=== PATIENT | male | born 1950 | race Caucasian/White ===

== ENCOUNTER → 2023-06-05 11:03 | Outpatient (REF) | payer MEDICARE, OTHER, SELFPAY ==
[2023-06-05 11:58] LABS: Hematocrit 46.3 % (39.0-52.0); Hemoglobin 15.6 g/dL (13.0-18.0); Mean Corp Hgb Conc. 33.7 g/dL (33.0-37.0); Mean Corpuscular Hgb 27.7 pg (27.0-31.0); Mean Corpuscular Volume 82.2 fL (80.0-94.0); Mean Platelet Volume 10.1 fL (7.4-10.4); Platelet Count 183 10^3/uL (130-400); Red Blood Cell Count 5.63 10^6/uL (4.70-6.10); Red Cell Dist. Width 16.3 % (11.5-14.5); White Blood Cell Count 7.7 10^3/uL (4.8-10.8)
[2023-06-05 12:51] LABS: Free T4 1.56 ng/dl (0.78-2.19)
[2023-06-05 13:00] LABS: ALT (SGPT) 19 U/L (0-50); AST (SGOT) 25 U/L (17-59); Albumin 3.9 g/dl (3.5-5.0); Alkaline Phosphatase 59 U/L (38-126); Blood Urea Nitrogen 26 mg/dl (9-20); Calcium 10.5 mg/dl (8.4-10.2); Carbon Dioxide 30 mmol/L (22-30); Chloride 104 mmol/L (98-107); Glucose 106 mg/dl (70-99); HDL Cholesterol 47 mg/dl; LDL Cholesterol, Calculated 43 mg/dl; Potassium 4.6 mmol/L (3.5-5.1); Sodium 143 mmol/L (135-145); Total Bilirubin 0.8 mg/dl (0.2-1.3); Total Cholesterol 113 mg/dl (50-199); Triglyceride 119 mg/dl (10-149); Very Low Density Lipoprotein 23 mg/dl (0-30); eGFR 48.85
[2023-06-05 13:05] LABS: TSH 1.11 uIU/ml (0.47-4.68)
[2023-06-06 11:09] LABS: Intact PTH 43.2 pg/ml (13.6-85.8)
[2023-06-07 11:21] LABS: PSA Total 6.9 ng/mL (0.0-4.0)
== END ==
LOC: REG 11:03
PROVIDERS: ATTENDING PHYSICIAN Nurse Practitioner Family; FAMILY PHYSICIAN Family Medicine; REFERRING PHYSICIAN Surgery
DX: E11.9 Type 2 diabetes mellitus without complications (principal); E03.9 Hypothyroidism, unspecified; Z87.442 Personal history of urinary calculi; R97.20 Elevated prostate specific antigen [PSA]
CPT/HCPCS: 36415; 80053; 80061; 82330; 83036; 83970; 84153; 84154; 84439; 84443; 85027

== ENCOUNTER → 2023-06-18 12:14 | Outpatient (REF) | payer MEDICARE, OTHER, SELFPAY | LOC: HWRAD 12:14 | PROVIDERS: ATTENDING PHYSICIAN Physician Assistant; FAMILY PHYSICIAN Family Medicine | DX: R91.8 Other nonspecific abnormal finding of lung field (principal) | CPT/HCPCS: 71250 ==

== ENCOUNTER → 2023-09-18 12:42 | Outpatient (REF) | payer MEDICARE, OTHER, SELFPAY | LOC: RAD 12:42 | PROVIDERS: ATTENDING PHYSICIAN Internal Medicine; FAMILY PHYSICIAN Family Medicine; REFERRING PHYSICIAN Internal Medicine Cardiovascular Disease | DX: R91.8 Other nonspecific abnormal finding of lung field (principal) | CPT/HCPCS: 71250 ==

== ENCOUNTER 2023-10-06 16:20 | Emergency (ER) | payer MEDICARE, OTHER, SELFPAY ==
[2023-10-06] VITALS (11 sets, daily range): BP systolic 113–138; BP diastolic 61–78; BMI 23.0
[2023-10-06 16:36] LABS: % Basophils 0.3 % (0-2); % Eosinophils 0.6 % (0-6); % Immature Granulocytes 0.7 % (0-0.5); % Lymphocytes 8.4 % (20.5-51.1); % Monocytes 3.6 % (1.7-9.3); % Neutrophils 86.4 % (42.2-75.2); Absolute Eosinophils 0.1 10^3/uL (0-0.7); Absolute Immature Granulocytes 0.1 10^3/uL (0-0.05); Absolute Lymphocytes 1.1 10^3/uL (1.2-3.4); Absolute Monocytes 0.5 10^3/uL (0.1-0.6); Absolute Neutrophils 11.1 10^3/uL (1.4-6.5); Hematocrit 34.9 % (39.0-52.0); Hemoglobin 11.8 g/dL (13.0-18.0); Mean Corp Hgb Conc. 33.8 g/dL (33.0-37.0); Mean Corpuscular Hgb 27.3 pg (27.0-31.0); Mean Corpuscular Volume 80.8 fL (80.0-94.0); Mean Platelet Volume 10.3 fL (7.4-10.4); Nucleated Red Blood Cells % 0 % (-); Platelet Count 101 10^3/uL (130-400); Red Blood Cell Count 4.32 10^6/uL (4.70-6.10); Red Cell Dist. Width 14.6 % (11.5-14.5); White Blood Cell Count 12.8 10^3/uL (4.8-10.8)
--- NOTE | 2023-10-06 16:42 | ED.GENMED ---
History of Present Illness
General
Chief Complaint: Breathing Problem
Exam Limitations: none
Time Seen by Provider: 10/06/23 16:33
Nursing documentation reviewed up to this point in time: agreed with
History of Present Illness
History of Present Illness:
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
[employer] parking lot and called BCT. He denies headache, CP, SOB, Abd pain, n/v/d/c. States he has difficulty urinating at times but this is not new.
EMS reported the van was very hot inside with no air conditioning.
Past History
Past History
ED Past Medical History: CAD, CHF, COPD, GERD, HTN, Hypercholesterolemia and Other ( Heart class III CHF,)
ED Past Surgical History: Cardiac (Coronary stents, AICD), Urological (Kidney stone removal) and Other (Hernia repair)
Social History
Tobacco: Former smoker
Alcohol: None
Drug: None
Personal:
Living: with family
Employment: Retired
Family History
Family History: Other (Noncontributory)
Review of Systems
Review of Systems
Allergies reviewed?: Yes
All Other Systems: ROS reviewed and negative except as documented in HPI and ROS
Constitutional: Reports fever, fatigue and chills
EENT: Denies sore throat
Respiratory: Denies cough or trouble breathing
Cardiac: Denies chest pain, diaphoresis, palpitations or syncope
ABD/GI: Denies abdominal pain, nausea, vomiting, diarrhea, bloody stools or black stools
: Denies dysuria
Musculoskeletal: Reports no symptoms
Skin: Reports no symptoms
Neurological: Reports weakness (generalized); Denies dizzy, headache or numbness
Phy Exam
Physical Exam
Physical Exam:
GENERAL: No acute distress. Lethargic, Ox3.
CONSTITUTIONAL: 101.0 po
EYES: PERRL, conjunctivae normal
Neck: Supple
ENMT: moist mucus membranes, Pharynx nl
RESPIRATORY: Regular respirations, nonlabored, lungs clear.
CARDIOVASCULAR: Regular rate and rhythm, no murmurs, no rubs.
GI: Soft, nontender, normal BS
MUSCULOSKELETAL: Moves with ease. Well perfused. No edema
SKIN: Warm, dry, pink
PSYCH: Depressed, lethargic mood and affect. Well kept, interactive and appropriate
NEUROLOGIC: Awake and oriented. Slow to respond, speech clear, CN 2-12 intact, genally weak, strength equal throughout, No focal neurological deficits.
Scores
Heart Failure Risk
Heart Failure Risk Score: Not Applicable
Course
Orders/Labs/Results
Orders:
Orders
10/06/23 16:27
Electrocardiogram (*1) Urgent
Reason for Study: Shortness of Breath
EKG- Treatment ONCE
10/06/23 16:31
Complete Blood Count/With Diff Urgent
Comprehensive Metabolic Panel Urgent
Pro-BNP [NT-proBNP] Urgent
Troponin I Urgent
10/06/23 16:43
Urinalysis Reflex To Culture Urgent
Date Specimen was Collected: 10/06/23
Time Specimen was Collected: 16:40
Urine Microscopic Reflex Cult Urgent
10/06/23 16:51
Acetaminophen [Tylenol] 1,000 mg PO NOW STA
10/06/23 16:52
0.9% Sodium Chloride 500 ml [Nss] 500 ml IV BOLUS
Abnormal Lab Results
10/06/23 10/06/23
16:31 16:43
WBC 12.8 H 10^3/uL
(4.8-10.8)
RBC 4.32 L 10^6/uL
(4.70-6.10)
Hgb 11.8 L g/dL
(13.0-18.0)
Hct 34.9 L %
(39.0-52.0)
RDW 14.6 H %
(11.5-14.5)
Plt Count 101 L 10^3/uL
(130-400)
Abs Immat Gran (auto) 0.1 H 10^3/uL
(0-0.05)
Absolute Neuts (auto) 11.1 H 10^3/uL
(1.4-6.5)
Absolute Lymphs (auto) 1.1 L 10^3/uL
(1.2-3.4)
Immature Gran % 0.7 H %
(0-0.5)
Neutrophils % 86.4 H %
(42.2-75.2)
Lymphocytes % 8.4 L %
(20.5-51.1)
Potassium 3.3 L mmol/L
(3.5-5.1)
BUN 25 H mg/dl
(9-20)
Creatinine 1.4 H mg/dL
(0.7-1.3)
Glucose 103 H mg/dl
(70-99)
Total Protein 6.0 L g/dl
(6.3-8.2)
Ur Occult Blood Reflex 3+ A
(Negative)
Urine Albumin (Reflex) 2+ A
(Neg - Trace)
10/06/23 16:31
10/06/23 16:31
Vital Signs
Initial and Last Documented VS:
Initial Vital Signs
Temp Pulse Resp BP Pulse Ox
101.1 F H 98 19 137/78 97
10/06/23 16:25 10/06/23 16:25 10/06/23 16:25 10/06/23 16:25 10/06/23 16:25
Last Documented Vital Signs
Temp Pulse Resp BP Pulse Ox
99.1 F 80 20 126/61 96
10/06/23 17:21 10/06/23 19:00 10/06/23 19:00 10/06/23 18:34 10/06/23 19:00
MDM/Problems Addressed
Differential Diagnosis Includes:
Heat exhaustion, dehydration, hypoglycemia
MDM/Problems Addressed:
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
[employer] parking lot and called BCT. He denies headache, CP, SOB, Abd pain, n/v/d/c. States he has difficulty urinating at times but this is not new.
EMS reported the van was very hot inside with no air conditioning.
EKG: Atrial sensed ventricular paced rhythm. Rate 98
CBC: No clinically significant abnormality
CMP: Consistent with his baseline CKD
Troponin WNL
BNP 1810 mildly elevated
U/A neg
5:30 PM
Patient now more alert, drinking, still feels very fatigued
6:45 PM
Patient eating and drinking, feels much better, sitting on edge of bed bright and alert, oriented
at bedside states he looks 'good.'
Patient out of bed and ambulating well
Temperature back to normal '
Most likely mild heat exhaustion
*EKG
EKG Intrepretation Date: 10/06/23
Interpretation: abnormal
Rate: normal
Rhythm: ventricular paced
QRS Pattern: normal QRS
Ischemia: no ischemia
*Critical Care Note
Total Time (30-74mins, 75-104mins- exclusive of procedures): Not Applicable
ED Attending Note
-
Portions of this chart may have been created with voice recognition software.� Occasional wrong word or��sound alike� substitutions may have occurred due to the inherent limitations of voice recognition software.
Discharge Plan
Departure
Patient Disposition: Home (Routine Discharge)
Date of Disposition: 10/06/23
Time of Disposition: 18:50
Patient with high blood pressure during this ER visit?: No
Condition: Good
Discharge Problem:
Heat exhaustion, Mild dehydration
Instructions: Heat Exhaustion and Heat Stroke (DC), Dehydration, Adult ED
Prescriptions:
No Action
aspirin 81 MG tablet,delayed release (DR/EC)
81 mg PO QPM
levothyroxine [Levoxyl] 50 MCG tablet
50 mcg PO DAILY
albuterol sulfate [Proventil HFA] 90 MCG/PUFF HFA aerosol inhaler
2 puff inhalation R Q4 PRN (Reason: SOB)
Patient Comments:
pantoprazole 40 MG tablet,delayed release (DR/EC)
40 mg PO DAILY
rosuvastatin [Crestor] 40 MG tablet
40 mg PO DAILY
famotidine [Pepcid] 20 mg Tablet
20 mg PO HS
tamsulosin 0.4 mg Capsule
0.4 mg PO HS
escitalopram oxalate [Lexapro] 10 mg Tablet
10 mg PO DAILY
Trelegy Ellipta 200-62.5-25 mcg Blister With Device
1 inh INHALATION R DAILY
multivitamin Tablet
1 tab PO DAILY
Cbd 1 GUMMY
1 gummy PO DAILY
Focus 1 TAB tablet
1 tab PO DAILY
Oxy-Boost 1 CAPSULE capsule
1 cap PO DAILY
metformin 500 mg Tablet
500 mg PO BID@0800,1700 Qty: 60 0RF
Januvia 100 mg Tablet
100 mg PO DAILY Qty: 30 0RF
glipizide 5 mg tablet
2.5 mg PO DAILY
levofloxacin 750 mg tablet
750 mg PO DAILY 5 Days Qty: 5 0RF
carvedilol [Coreg] 12.5 mg Tablet
12.5 mg PO BID
Referrals:
Sam Rowe MD [Family Provider] - Follow up in 2-3 days
NONE,* [Active] -
Stand Alone Forms: Return to Work
Activity Restrictions/Additional Instructions:
As we discussed, rest over the next 2 days, drink plenty of fluids, stay hydrated. Stay in a cool atmosphere
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
You should have your kidney functions rechecked by blood work sometime within the next month. Please discuss with your doctor
Interventions
Interventions:
*Risk Screen - Suicide Last Done: 10/06/23 16:29
*General Assessment Last Done: 10/06/23 16:28
*Neglect/Abuse Screening Last Done: 10/06/23 16:29
ED- Fall Risk Assessment Last Done: 10/06/23 16:44
*ED COVID-19 Vaccine History Last Done: 10/06/23 16:29
*Nursing Disposition Last Done: 10/06/23 19:15
ED- Cardiac Assessment Last Done: 10/06/23 16:33
ED- Pulmonary Assessment Last Done: 10/06/23 16:44
Discharge Date and Time
Discharge Date/Time: 10/06/23 19:15
Print Language: MOHAWK
[2023-10-06 16:53] LABS: ALT (SGPT) 24 U/L (0-50); AST (SGOT) 28 U/L (17-59); Albumin 3.6 g/dl (3.5-5.0); Alkaline Phosphatase 59 U/L (38-126); Blood Urea Nitrogen 25 mg/dl (9-20); Calcium 9.6 mg/dl (8.4-10.2); Carbon Dioxide 24 mmol/L (22-30); Chloride 107 mmol/L (98-107); Estimated Creatinine Clearance 44 ml/min; Glucose 103 mg/dl (70-99); Potassium 3.3 mmol/L (3.5-5.1); Sodium 140 mmol/L (135-145); Total Bilirubin 0.5 mg/dl (0.2-1.3); eGFR 53.07
[2023-10-06] MEDS: TYLENOL 1000 MG PO (16:55)
[2023-10-06] MEDS: NSS 500 IV (16:57)
[2023-10-06 16:59] LABS: Urine Albumin 2+ (Neg - Trace); Urine Bilirubin Negative (Negative); Urine Character Clear (Clear); Urine Color Yellow; Urine Glucose Negative (Negative); Urine Ketone Negative (Negative); Urine Leukocyte Negative (Negative); Urine Nitrite Negative (Negative); Urine Occult Blood 3+ (Negative); Urine Urobilinogen Negative (Neg - 1+)
[2023-10-06 17:04] LABS: NT-proBNP 1810 pg/ml; Troponin I < 0.012 ng/ml
[2023-10-06 17:14] LABS: Urine White Cell 0-2 /HPF (0-5)
[2023-10-06 17:15] LABS: Urine Red Blood Cell 0-2 /HPF (0-2)
== END 2023-10-06 19:15 | disposition home or self-care (01) ==
LOC: EMR 16:20
PROVIDERS: Emergency Medicine; EMERGENCY PHYSICIAN Emergency Medicine; FAMILY PHYSICIAN Family Medicine
DX: E86.0 Dehydration (principal); T67.5XXA Heat exhaustion, unspecified, initial encounter; R50.9 Fever, unspecified; X30.XXXA Exposure to excessive natural heat, initial encounter; Y93.89 Activity, other specified; Y92.89 Other specified places as the place of occurrence of the external cause; Y99.0 Civilian activity done for income or pay; I13.0 Hypertensive heart and chronic kidney disease with heart failure and stage 1 through stage 4 chronic kidney disease, or unspecified chronic kidney disease; I50.9 Heart failure, unspecified; N18.9 Chronic kidney disease, unspecified; I25.10 Atherosclerotic heart disease of native coronary artery without angina pectoris; J44.9 Chronic obstructive pulmonary disease, unspecified; E78.00 Pure hypercholesterolemia, unspecified; E03.9 Hypothyroidism, unspecified; K21.9 Gastro-esophageal reflux disease without esophagitis; I25.2 Old myocardial infarction; Z87.442 Personal history of urinary calculi; Z95.5 Presence of coronary angioplasty implant and graft; Z95.810 Presence of automatic (implantable) cardiac defibrillator; Z87.891 Personal history of nicotine dependence
CPT/HCPCS: 99284; 96360; 80053; 81003; 81015; 83880; 84484; 85025; 93005

== ENCOUNTER 2023-11-04 11:49 | Emergency (ER) | payer MEDICARE, OTHER, SELFPAY ==
[2023-11-04 11:57] VITALS: BP 140/77
[2023-11-04 12:22] VITALS: BMI 23.0
[2023-11-04 12:23] VITALS: BP 153/95
[2023-11-04 12:24] VITALS: BP 153/95
[2023-11-04 13:00] VITALS: BP 141/79
[2023-11-04 13:00] LABS: ALT (SGPT) 20 U/L (0-50); AST (SGOT) 34 U/L (17-59); Albumin 3.6 g/dl (3.5-5.0); Alkaline Phosphatase 56 U/L (38-126); Blood Urea Nitrogen 16 mg/dl (9-20); Calcium 9.9 mg/dl (8.4-10.2); Carbon Dioxide 29 mmol/L (22-30); Chloride 103 mmol/L (98-107); Estimated Creatinine Clearance 58 ml/min; Glucose 129 mg/dl (70-99); Sodium 139 mmol/L (135-145); Total Bilirubin 0.8 mg/dl (0.2-1.3); Total Protein 6.6 g/dl (6.3-8.2); eGFR > 60.00
--- NOTE | 2023-11-04 13:17 | ED.GENMED ---
History of Present Illness
General
Chief Complaint: Fever
Time Seen by Provider: 11/04/23 12:13
History of Present Illness
History of Present Illness:
73-year-old male presents to the emergency department for evaluation of lethargy, weakness, and confusion. Tested positive for COVID-19 approximately 10 days ago and has had persistent fever since that time. Patient denies any headaches or vision
changes. He is somewhat slow to respond on initial evaluation. He has not received any antipyretics today
Past History
Past History
ED Past Medical History: CAD, CHF, COPD, GERD, HTN, Hypercholesterolemia and Other ( Heart class III CHF,)
ED Past Surgical History: Cardiac (Coronary stents, AICD), Urological (Kidney stone removal) and Other (Hernia repair)
Social History
Tobacco: Former smoker
Alcohol: None
Drug: None
Personal:
Living: with family
Employment: Retired
Family History
Family History: Other (Noncontributory)
Review of Systems
Review of Systems
Allergies reviewed?: Yes
All Other Systems: ROS reviewed and negative except as documented in HPI and ROS
Phy Exam
Physical Exam
Physical Exam:
GEN: Well appearing, NAD, WDWN
HEENT: Oral mucosa moist, no scleral icterus, no nasal congestion
Cardiac: Regular rate and rhythm
Lung: No respiratory distress, no tachypnea, lungs clear to auscultation
MSK: No gross deformity or injuries
Skin: Good color, no pallor or jaundice, no rashes
Neuro: AO x3, slow to questions; CN II-XII grossly intact. BUE strength 5/5 in all chen, sensation intact and symmetric. BLE strength 5/5 in all chen, sensation intact and symmetric
Psych: Calm, cooperative
Course
Orders/Labs/Results
Orders:
Orders
11/04/23 12:26
Complete Blood Count/With Diff Urgent
Comprehensive Metabolic Panel Urgent
11/04/23 12:48
CT Head W/o Iv Contrast Urgent
Comment:
Reason For Exam: altered
0.9% Sodium Chloride 1000 ml [Nss] 1,000 ml IV BOLUS
Acetaminophen [Tylenol] 650 mg PO NOW STA
CR Chest - 2 Views Urgent
Comment:
Reason For Exam: COVID/fever
11/04/23 15:54
Urinalysis Reflex To Culture Urgent
Date Specimen was Collected: 11/04/23
Time Specimen was Collected: 15:52
Urine Microscopic Reflex Cult Urgent
Abnormal Lab Results
11/04/23 11/04/23
12:26 15:54
WBC 12.9 H 10^3/uL
(4.8-10.8)
RBC 4.53 L 10^6/uL
(4.70-6.10)
Hgb 12.0 L g/dL
(13.0-18.0)
Hct 35.7 L %
(39.0-52.0)
MCV 78.8 L fL
(80.0-94.0)
MCH 26.5 L pg
(27.0-31.0)
Abs Immat Gran (auto) 0.1 H 10^3/uL
(0-0.05)
Absolute Neuts (auto) 10.7 H 10^3/uL
(1.4-6.5)
Absolute Lymphs (auto) 1.0 L 10^3/uL
(1.2-3.4)
Absolute Monos (auto) 1.0 H 10^3/uL
(0.1-0.6)
Immature Gran % 0.6 H %
(0-0.5)
Neutrophils % 82.9 H %
(42.2-75.2)
Lymphocytes % 7.9 L %
(20.5-51.1)
Glucose 129 H mg/dl
(70-99)
Urine Ketones Trace A
(Negative)
Ur Occult Blood Reflex 1+ A
(Negative)
Urine Bacteria (Reflex) Few A
(Negative)
Urine Albumin (Reflex) 1+ A
(Neg - Trace)
11/04/23 12:26
11/04/23 12:26
Vital Signs
Initial and Last Documented VS:
Initial Vital Signs
Temp Pulse Resp BP Pulse Ox
101.8 F H 84 20 140/77 96
11/04/23 11:57 11/04/23 11:57 11/04/23 11:57 11/04/23 11:57 11/04/23 11:57
Last Documented Vital Signs
Temp Pulse Resp BP Pulse Ox
100.1 F 76 16 153/95 95
11/04/23 12:23 11/04/23 12:23 11/04/23 12:23 11/04/23 12:23 11/04/23 12:23
MDM/Problems Addressed
MDM/Problems Addressed:
Patient's neurologic function improved dramatically with antipyretics and IV fluids. He was able to ambulate under his own power without difficulty in the emergency department. No evidence for secondary infection as chest x-ray shows no pneumonia
cyst is bland. Encouraged use of continued antipyretics, this is likely a prolonged course of COVID-19. CT of the head is unremarkable. He has no neck stiffness or meningeal signs concerning for meningitis/encephalitis, regardless this would be
viral and I feel the risk of lumbar puncture at this time with far outweigh the potential benefits
*Critical Care Note
Total Time (30-74mins, 75-104mins- exclusive of procedures): Not Applicable
ED Attending Note
-
Portions of this chart may have been created with voice recognition software.� Occasional wrong word or��sound alike� substitutions may have occurred due to the inherent limitations of voice recognition software.
Discharge Plan
Departure
Patient Disposition: Home (Routine Discharge)
Date of Disposition: 11/04/23
Time of Disposition: 16:26
Patient with high blood pressure during this ER visit?: No
Discharge Problem:
COVID-19
Instructions: Fever, Adult (DC)
Prescriptions:
No Action
aspirin 81 MG tablet,delayed release (DR/EC)
81 mg PO QPM
levothyroxine [Levoxyl] 50 MCG tablet
50 mcg PO DAILY
albuterol sulfate [Proventil HFA] 90 MCG/PUFF HFA aerosol inhaler
2 puff inhalation R Q4 PRN (Reason: SOB)
Patient Comments:
pantoprazole 40 MG tablet,delayed release (DR/EC)
40 mg PO DAILY
rosuvastatin [Crestor] 40 MG tablet
40 mg PO DAILY
famotidine [Pepcid] 20 mg Tablet
20 mg PO HS
tamsulosin 0.4 mg Capsule
0.4 mg PO HS
escitalopram oxalate [Lexapro] 10 mg Tablet
10 mg PO DAILY
Trelegy Ellipta 200-62.5-25 mcg Blister With Device
1 inh INHALATION R DAILY
multivitamin Tablet
1 tab PO DAILY
Cbd 1 GUMMY
1 gummy PO DAILY
Focus 1 TAB tablet
1 tab PO DAILY
Oxy-Boost 1 CAPSULE capsule
1 cap PO DAILY
metformin 500 mg Tablet
500 mg PO BID@0800,1700 Qty: 60 0RF
Januvia 100 mg Tablet
100 mg PO DAILY Qty: 30 0RF
glipizide 5 mg tablet
2.5 mg PO DAILY
levofloxacin 750 mg tablet
750 mg PO DAILY 5 Days Qty: 5 0RF
carvedilol [Coreg] 12.5 mg Tablet
12.5 mg PO BID
Referrals:
Sam Rowe MD [Family Provider] -
Activity Restrictions/Additional Instructions:
Take 650 mg of Tylenol every 6-8 hours for fever control. Increase fluid intake. Follow-up in the emergency department if symptoms worsen
Interventions
Interventions:
*Risk Screen - Suicide Last Done: 11/04/23 12:23
*General Assessment Last Done: 11/04/23 12:23
*Neglect/Abuse Screening Last Done: 11/04/23 12:23
ED- Fall Risk Assessment Last Done: 11/04/23 12:23
*ED COVID-19 Vaccine History Last Done: 11/04/23 12:23
ED- Neurological Assessment Last Done: 11/04/23 12:23
ED-Skin Assessment Last Done: 11/04/23 12:23
Discharge Date and Time
Print Language: MICRONESIAN
[2023-11-04] MEDS: TYLENOL 650 MG PO (13:21)
[2023-11-04] MEDS: NSS 1000 IV (13:24)
[2023-11-04 14:00] VITALS: BP 139/76
[2023-11-04 15:03] LABS: % Basophils 0.2 % (0-2); % Eosinophils 0.7 % (0-6); % Immature Granulocytes 0.6 % (0-0.5); % Lymphocytes 7.9 % (20.5-51.1); % Monocytes 7.7 % (1.7-9.3); % Neutrophils 82.9 % (42.2-75.2); Absolute Eosinophils 0.1 10^3/uL (0-0.7); Absolute Immature Granulocytes 0.1 10^3/uL (0-0.05); Absolute Neutrophils 10.7 10^3/uL (1.4-6.5); Hematocrit 35.7 % (39.0-52.0); Mean Corp Hgb Conc. 33.6 g/dL (33.0-37.0); Mean Corpuscular Hgb 26.5 pg (27.0-31.0); Mean Corpuscular Volume 78.8 fL (80.0-94.0); Mean Platelet Volume 9.9 fL (7.4-10.4); Nucleated Red Blood Cells % 0 % (-); Platelet Count 227 10^3/uL (130-400); Red Blood Cell Count 4.53 10^6/uL (4.70-6.10); Red Cell Dist. Width 14.5 % (11.5-14.5); White Blood Cell Count 12.9 10^3/uL (4.8-10.8)
[2023-11-04 16:00] VITALS: BP 138/85
[2023-11-04 16:07] LABS: Urine Albumin 1+ (Neg - Trace); Urine Bilirubin Negative (Negative); Urine Character Clear (Clear); Urine Color Yellow; Urine Glucose Negative (Negative); Urine Ketone Trace (Negative); Urine Leukocyte Negative (Negative); Urine Nitrite Negative (Negative); Urine Occult Blood 1+ (Negative); Urine Specific Gravity 1.015 (<1.030); Urine Urobilinogen Negative (Neg - 1+)
[2023-11-04 16:23] LABS: Urine Hyaline Cast 0-2 /LPF (0-2); Urine Mucus Few
[2023-11-04 16:24] LABS: Urine Bacteria Few (Negative); Urine Granular Cast 0-2 /LPF (0); Urine Red Blood Cell 0-2 /HPF (0-2)
== END 2023-11-04 16:43 | disposition home or self-care (01) ==
LOC: EMR 11:49
PROVIDERS: Emergency Medicine; Physician Assistant; EMERGENCY PHYSICIAN Emergency Medicine; FAMILY PHYSICIAN Family Medicine
DX: U07.1 COVID-19 (principal); Z87.891 Personal history of nicotine dependence
CPT/HCPCS: 99284; 96360; 70450; 71046; 80053; 81003; 81015; 85025

== ENCOUNTER 2023-11-04 23:23 | Inpatient (IN) | payer MEDICARE, OTHER, SELFPAY ==
[2023-11-04 21:41] VITALS: BP 138/68; BMI 21.8
[2023-11-04 22:00] VITALS: BP 130/65
--- NOTE | 2023-11-04 22:25 | ED.GENMED ---
History of Present Illness
General
Chief Complaint: Weakness
Source: patient and family
Exam Limitations: none
Time Seen by Provider: 11/04/23 21:47
History of Present Illness
History of Present Illness:
This is a 73 year old male that is brought in by family with c/o confusion. Patient was just seen in the emergency room today and discharge home around 5pm. Son states that tonight they found him kneeling on the floor with a big yellow puddle.
states that he had COVID 13 days ago and when he has a fever he gets confused. States that he has had fever with chills, diarrhea, headache, dizziness. Denies any chest pain, SOB, abd pain, vomiting, urinary burning.
Past History
Past History
ED Past Medical History: Asthma, CAD, CHF, COPD, GERD, HTN, Hypercholesterolemia, NIDDM, [place], Hypothyroidism, Psychiatric (Anxiety), Other (Peraza's Esophagus, Renal calculus, ) and Other ( Heart class III CHF, Back pain, Migraines, PNA, )
ED Past Surgical History: Cardiac (Coronary stents, AICD), Orthopedic (Right and left rotator cuff surgery), Urological (Kidney stone removal) and Other (Hernia repair, AAA with repair, Cataracts, )
Social History
Tobacco: Former smoker
Alcohol: None
Drug: None
Personal:
Living: with family
Employment: Retired
Family History
Family History: Other (Noncontributory)
Review of Systems
Review of Systems
Other source history: family (and patient)
All Other Systems: ROS reviewed and negative except as documented in HPI and ROS
Constitutional: Reports fever and chills
EENT: Reports no symptoms
Respiratory: Reports no symptoms; Denies cough or trouble breathing
Cardiac: Reports no symptoms; Denies chest pain
ABD/GI: Reports diarrhea; Denies abdominal pain, nausea or vomiting
: Reports no symptoms; Denies dysuria, frequency or urgency
Musculoskeletal: Reports no symptoms
Skin: Reports no symptoms
Neurological: Reports dizzy and headache
Psychiatric: Reports no symptoms
Phy Exam
General Physical Exam
General Presentation: no apparent distress
General age: appears stated age
General Skin: warm and dry
General Habitus: elderly
General Mental: alert (able to answer questions but slow to answer, Unsure about events)
General Hydration: appears well hydrated
ENT Exam
ENT Exam: TM's normal, pharynx normal and neck supple
Eye Exam
Eye Exam: EOMI
Cardiovascular Exam
Cardiovascular Exam: no edema, normal peripheral pulses and pacemaker
Pulmonary Exam
Pulmonary Exam: lungs clear, no respiratory distress, no rales, chest non tender, no crackles, no rhonchi, no wheezing and no cough
Gastrointestinal Exam
Gastrointestinal Exam: normal bowel sounds, non tender, soft, no organomegaly, no pulsatile mass and non distended
Musculoskeletal Exam
Musculoskeletal Exam: full ROM and no edema
Skin Exam
Skin Exam: normal color, warm/dry, no rash and no petechia
Psychiatric Exam
Psychiatric Exam: normal mood/affect
Course
Orders/Labs/Results
Orders:
Orders
11/04/23 22:39
COVID-19 Antigen Urgent
Source: Nasal Swab
11/04/23 23:04
Acetaminophen [Tylenol] 1,000 mg PO NOW STA
11/04/23 23:23
Admit/Transfer Patient As Directed
Co-Sign Provider:
Level of Care: Inpatient admission
Assign to:: Medical/Surgical
Physician / Group: can
Diagnosis: metabolic encephelopathy
Reason for Hospitalization: metabolic encephalopathy
Expected length of stay greater than two midnights?: Yes
ELOS- Estimated Length of Stay in days: 2
I certify the patient meets the requirements for IP care: Yes
11/04/23 23:24
Code Status As Directed
Resuscitation Status: Full Code
11/04/23 23:27
Blood Culture Urgent
ALONSO Source: Blood/Venous
Specimen Description:
11/04/23 23:57
Blood Culture Routine
ALONSO Source: Blood/Venous
Specimen Description:
COVID negative
Vital Signs
Initial and Last Documented VS:
Initial Vital Signs
Temp Pulse Resp BP Pulse Ox
99.6 F 77 14 138/68 94
11/04/23 21:41 11/04/23 21:41 11/04/23 21:41 11/04/23 21:41 11/04/23 21:41
Last Documented Vital Signs
Temp Pulse Resp BP Pulse Ox
99.6 F 69 13 127/74 98
11/04/23 21:41 11/04/23 23:00 11/04/23 23:00 11/04/23 23:00 11/04/23 23:00
MDM/Problems Addressed
Differential Diagnosis Includes:
COVID Encephalopathy, Dementia
MDM/Problems Addressed:
This is a 73 year old male that was here today with c/o weakness and confusion. Patient had a CT of the head, labs, chest x-ray and urine and patient was discharged home. Patient was found at home kneeling on the floor with a big yellow puddle.
Family states that he doesn't remember this.
Will Admit patient at this time for confusion and further evaluation.
Back into see patient and family. Explained that his Blood work from earlier was normal along with his chest X-ray and CT of the head. Will admit patient due to the confusion. Explained that this could all be related to COVID or this could be
dementia starting. Patient can be further evaluated in the hospital.
Chronic conditions affecting care: DM, CAD, COPD and Asthma
Acute Exacerbation and/or Progression of Chronic Illness:
NA
*Pulse Oximetry
Patient hypoxic: no
*EKG
Interpreted by ED Provider?: NA
Rate: EKG- N/A
*Generator Technician Interpretation
Rate: normal
Heart Rate: 64
Rhythm: av sequential
*Critical Care Note
Total Time (30-74mins, 75-104mins- exclusive of procedures): Not Applicable
ED Attending Note
-
Portions of this chart may have been created with voice recognition software.� Occasional wrong word or��sound alike� substitutions may have occurred due to the inherent limitations of voice recognition software.
Discharge Plan
Departure
Patient Disposition: Admit
Date of Disposition: 11/04/23
Time of Disposition: 22:55
Admit to: Med/Surg
Presentation/result/management discussed w/ accepting MD/DO: Hospitalist
Patient with high blood pressure during this ER visit?: Yes
Condition: Good
Covid-19: Negative COVID-19
Discharge Problem:
Change in mental status
Prescriptions:
No Action
aspirin 81 MG tablet,delayed release (DR/EC)
81 mg PO QPM
levothyroxine [Levoxyl] 50 MCG tablet
50 mcg PO DAILY
albuterol sulfate [Proventil HFA] 90 MCG/PUFF HFA aerosol inhaler
2 puff inhalation R Q4HPRN PRN (Reason: SOB)
Patient Comments:
pantoprazole 40 MG tablet,delayed release (DR/EC)
40 mg PO DAILY
rosuvastatin [Crestor] 40 MG tablet
40 mg PO DAILY
tamsulosin 0.4 mg Capsule
0.4 mg PO HS
escitalopram oxalate [Lexapro] 10 mg Tablet
10 mg PO DAILY
multivitamin Tablet
1 tab PO DAILY
carvedilol 6.25 mg tablet
6.25 mg PO BID
tolterodine 4 mg capsule,extended release 24hr
4 mg PO DAILY
metformin 500 mg tablet
500 mg PO BIDWMEAL
Referrals:
Sam Rowe MD [Family Provider] -
Interventions
Interventions:
*Risk Screen - Suicide Last Done: 11/04/23 21:41
*General Assessment Last Done: 11/04/23 21:41
*Neglect/Abuse Screening Last Done: 11/04/23 21:41
*ED COVID-19 Vaccine History Last Done: 11/04/23 21:41
ED- Neurological Assessment Last Done: 11/04/23 21:48
Discharge Date and Time
Print Language: MALTESE
[2023-11-04 23:00] VITALS: BP 127/74
[2023-11-04 23:01] LABS: COVID-19 Antigen Negative (Negative)
[2023-11-04] MEDS: TYLENOL 1000 MG PO (23:19)
--- NOTE | 2023-11-04 23:29 | HPS.HSE ---
Family Physician
-
Family Physician: Sam Rowe
Chief Complaint
-
confusion
History of Present Illness
73-year-old male past medical history of diabetes, coronary artery disease with history of cardiac stents, ICD, chronic HFpEF, hypertension, BPH, COPD, hyperlipidemia, GERD, hypothyroidism, anxiety, history of left-sided Levy's palsy, presenting for
waxing and waning confusion. Patient came to the emergency room earlier and was discharged on 5 PM. Son states that tonight they found him kneeling on the floor in a puddle of urine.
Patient had a fall 2 weeks ago and was admitted [facility] and found to have COVID there. He was having productive cough, fevers and chills. Family is unsure if he received any treatment. Family states that he has never completely recovered from
COVID. He continues to have productive cough and fevers/chills. Family states that he gets confused when he has a fever.
Patient complains of frontal headache. He denies any neck pain. He denies any chest pain or shortness of breath. He denies any nausea or vomiting or abdominal pain. He had diarrhea a few days ago which is since resolved. No urinary symptoms.
No rashes. No recent outdoor exposure. No new medications.
Patient lost his job in early October and since then he has had loss of interest in activities and family feels that he is depressed.
No smoking alcohol use.
Medical History
Past Medical History
Past Medical History: Reports Other (diabetes, coronary artery disease with history of cardiac stents, ICD, chronic HFpEF, hypertension, BPH, COPD, hyperlipidemia, GERD, hypothyroidism, anxiety, history of left-sided Levy's palsy,)
Past Surgical History: Reports Other (Cardiac (Coronary stents, AICD), Orthopedic (Right and left rotator cuff surgery), Urological (Kidney stone removal) and Other (Hernia repair, AAA with repair, Cataracts, ))
Social History
Tobacco: Non-smoker
Alcohol: None
Drug: None
Family History
Family History: Not pertinent
Allergies / Home Medications
Allergies reflects when Allergies were last updated in [facility].
Home Medications with original date entered in [facility]
Allergy/Medication List:
Allergies
Allergy/AdvReac Type Severity Reaction Status Date / Time
vancomycin Allergy Unknown Itching Verified 11/04/23 12:02
Cephalosporins Allergy penicillin Verified 11/04/23 12:02
allergy
penicillin G Allergy unsure of Verified 11/04/23 12:02
reaction-was
allergic
as child
Penicillins Allergy Unknown Verified 11/04/23 12:02
Home Medications
albuterol sulfate 90 mcg/actuation aerosol inhaler (Proventil HFA) 2 puff inhalation R Q4HPRN PRN SOB 09/17/12
aspirin 81 mg tablet,delayed release 81 mg PO QPM Blood clot prevention/tx 09/17/12
levothyroxine 50 mcg tablet (Levoxyl) 50 mcg PO DAILY Thyroid 09/17/12
pantoprazole 40 mg tablet,delayed release 40 mg PO DAILY Gastrointestinal issue 10/04/15
rosuvastatin 40 mg tablet (Crestor) 40 mg PO DAILY High cholesterol 11/23/17
escitalopram oxalate 10 mg tablet (Lexapro) 10 mg PO DAILY Mental Health/Anxiety 12/27/21
multivitamin 1 tab PO DAILY Supplement 12/27/21
tamsulosin 0.4 mg capsule 0.4 mg PO HS Urinary issue 12/27/21
carvedilol 6.25 mg tablet 6.25 mg PO BID 11/04/23
metformin 500 mg tablet 500 mg PO BIDWMEAL 11/04/23
tolterodine 4 mg capsule,extended release 24 hr 4 mg PO DAILY 11/04/23
Review of Systems
-
History Source: Patient
A 12 point ROS was completed and negative except as noted: Yes
Constitutional: Reports No Symptoms
EENT: Reports No Symptoms
Respiratory: Reports No Symptoms
Cardiac: Reports No Symptoms
Abdomen/GI: Reports No Symptoms
: Reports No Symptoms
Musculoskeletal: Reports No Symptoms
Skin: Reports No Symptoms
Neurological: Reports See HPI
Endocrine: Reports No Symptoms
Hematologic/Lymphatic: Reports No Symptoms
Psych: Reports No Symptoms
Physical Exam
Vital Signs
Vital Signs
Temp Pulse Resp BP Pulse Ox
99.6 F 69 13 127/74 98
11/04/23 21:41 11/04/23 23:00 11/04/23 23:00 11/04/23 23:00 11/04/23 23:00
Physical Exam
General: Well Developed, Well Nourished and No Apparent Distress
HEENT: NormoCephalic, Moist mucous membranes and Atraumatic
Respiratory: Clear
Cardiac: S1/S2 and Regular Rhythm; No Murmur or Rub
GI: Soft, Non Tender, Non Distended and Normal Bowel Sounds; No Organomegaly
Rectal: Deferred by Provider
Musculoskeletal: No Clubbing, No Cyanosis and No Edema
Skin: No Rash
Neuro: Nonfocal/grossly intact
Data Reviewed
-
Lab Data: Labs Reviewed by me
Old Records: Reviewed
Impression/Plan
-
IMPRESSION:
PLAN:
# Metabolic encephalopathy unclear etiology possible viral encephalitis
-Leukocytosis on labs
-CT head negative for acute abnormality
-Chest x-ray negative
-Urinalysis negative
-Check blood cultures
-Infectious disease consulted
# Recent COVID infection
-Has been 2 weeks since start of symptoms, patient should not be febrile from this anymore
# Possible underlying depression
-Outpatient follow-up with psychiatry
Type 2 diabetes
-Hold metformin, Januvia
-Hold glipizide
-Insulin sliding scale
Coronary artery disease history of cardiac stents with ICD
-Continue aspirin
Chronic HFpEF
-Continue Coreg
Essential hypertension
BPH
-Continue tamsulosin
COPD
-Continue inhalers
Hyperlipidemia
-Continue statin
GERD
-Continue famotidine, Protonix
Hypothyroidism
-Continue levothyroxine
Anxiety
-Continue Lexapro
History of left-sided Levy's palsy
Full code
DVT prophylaxis-heparin
Regular diet
[2023-11-05] VITALS (18 sets, daily range): BP systolic 119–161; BP diastolic 57–79; BMI 21.8; BMI 21.3
[2023-11-05 00:07] LABS: Glucose - Point of Care 113 mg/dl (70-99)
[2023-11-05] MEDS: MOTRIN 400 MG PO ×2 (04:46→16:43)
[2023-11-05 05:04] LABS: % Basophils 0.2 % (0-2); % Eosinophils 0.5 % (0-6); % Immature Granulocytes 0.7 % (0-0.5); % Lymphocytes 10.4 % (20.5-51.1); % Monocytes 10.2 % (1.7-9.3); Absolute Eosinophils 0.1 10^3/uL (0-0.7); Absolute Immature Granulocytes 0.1 10^3/uL (0-0.05); Absolute Lymphocytes 1.5 10^3/uL (1.2-3.4); Absolute Monocytes 1.4 10^3/uL (0.1-0.6); Absolute Neutrophils 10.9 10^3/uL (1.4-6.5); Hematocrit 30.6 % (39.0-52.0); Hemoglobin 10.3 g/dL (13.0-18.0); Mean Corp Hgb Conc. 33.7 g/dL (33.0-37.0); Mean Corpuscular Hgb 26.7 pg (27.0-31.0); Mean Corpuscular Volume 79.3 fL (80.0-94.0); Mean Platelet Volume 9.7 fL (7.4-10.4); Nucleated Red Blood Cells % 0 % (-); Platelet Count 174 10^3/uL (130-400); Red Blood Cell Count 3.86 10^6/uL (4.70-6.10); Red Cell Dist. Width 14.5 % (11.5-14.5)
[2023-11-05 05:16] LABS: ALT (SGPT) 19 U/L (0-50); AST (SGOT) 38 U/L (17-59); Alkaline Phosphatase 41 U/L (38-126); Blood Urea Nitrogen 15 mg/dl (9-20); Calcium 9.4 mg/dl (8.4-10.2); Carbon Dioxide 30 mmol/L (22-30); Chloride 102 mmol/L (98-107); Estimated Creatinine Clearance 72 ml/min; Glucose 111 mg/dl (70-99); Potassium 3.8 mmol/L (3.5-5.1); Sodium 136 mmol/L (135-145); Total Bilirubin 1.1 mg/dl (0.2-1.3); Total Protein 5.7 g/dl (6.3-8.2); eGFR > 60.00
--- NOTE | 2023-11-05 07:53 | W.PN.HOSP.TC ---
Today's Communication/Plan
-
fever control
empiric Linezolid, follow culture
MRSA screen
ECHO
PT/OT
Assessment / Plan
Assessment / Plan
Physical Exam
General: Well Developed, Well Nourished and No Apparent Distress
HEENT: NormoCephalic, Moist mucous membranes and Atraumatic
Respiratory: Clear
Cardiac: S1/S2 and Regular Rhythm; No Murmur or Rub
GI: Soft, Non Tender, Non Distended and Normal Bowel Sounds; No Organomegaly
Musculoskeletal: No Clubbing, No Cyanosis and No Edema
Skin: No Rash
Neuro: Awake Alert Conversant Coherent
73M diabetes, coronary artery disease hx stents, ICD, chronic HFpEF, HTN, BPH, COPD, HLD, GERD, Hypothyroidism, Anxiety, Hx left-sided Levy's palsy, p/w waxing and waning confusion. Patient had a fall 2 weeks ago and was admitted [facility] and
found to have COVID. Family reported he never completely recovered from COVID. He continued to have productive cough and fevers/chills- with associate confusion when febrile. Reported left frontal headache periorbital without vision issues. No
nuchal rigidity or photophobia noted.
# Metabolic encephalopathy unclear etiology possible viral encephalitis vs endocarditis
#mild Leukocytosis
#Bacteremia
-CT head negative for acute abnormality, repeat CT Head in 24H (holding off on MRI given pacemaker)
-Chest x-ray negative
-Urinalysis negative
- preliminary blood culture pos for gram pos cocci
-empiric IV Linezolid started given allergy profile including allergy to Vancomycin
-MRSA screen
-Infectious disease consult appreciated pending ECHO
# Recent COVID infection
-Has been 2 weeks since start of symptoms, patient should not be febrile from this anymore
#Anxiety/Depression
-Outpatient follow-up with psychiatry
-home Lexapro placed on hold d/t interaction empiric Linezolid as above
Type 2 diabetes
-Hold metformin, Januvia
-Hold glipizide
-Insulin sliding scale
Coronary artery disease history of cardiac stents with ICD
-Continue aspirin
Chronic HFpEF
-Continue Coreg
Essential hypertension
BPH
-Continue tamsulosin
COPD
-Continue inhalers
Hyperlipidemia
-Continue statin
GERD
-Continue famotidine, Protonix
Hypothyroidism
-Continue levothyroxine
History of left-sided Levy's palsy
PT/OT
Full code
DVT prophylaxis-heparin
Regular diet
Discussed with patient and patient's Renée at bedside
I spent a total of 50 minutes with the patient or on the floor. More than 50% of this time involved counseling and coordination of care.
Anticipated Discharge: 24 - 48 hours
Subjective/Interval History
-
Date of Service: November 05, 2023
Seen and examined at bedside in no acute distress resting comfortably in bed. AOx3 reports chills and left sided headache periorbital. Denies blurry vision blind spots coughing sneezing shortness of breath chest pain palpitations dysuria
constipation diarrhea.
Objective Data
-
Labs:
Laboratory Results
11/05/23
04:53
WBC 14.0 H
Hgb 10.3 L
Hct 30.6 L
Plt Count 174 D
Sodium 136
Potassium 3.8
Chloride 102
Carbon Dioxide 30
BUN 15
Creatinine 0.8
Glucose 111 H
Calcium 9.4
Total Bilirubin 1.1
AST 38
ALT 19
Alkaline Phosphatase 41
Vital Signs:
Vital Signs
Temp Pulse Resp BP Pulse Ox
98.4 F 58 5 151/74 94
11/05/23 00:59 11/05/23 00:30 11/05/23 00:30 11/05/23 05:00 11/05/23 05:45
[2023-11-05] MEDS: COREG 6.25 MG PO ×2 (07:57→21:15)
[2023-11-05] MEDS: PROTONIX 40 MG PO (07:57)
[2023-11-05] MEDS: CRESTOR 40 MG PO (07:57)
[2023-11-05] MEDS: LEXAPRO 10 MG PO (07:57)
[2023-11-05] MEDS: DETROL LA 4 MG PO (07:57)
[2023-11-05] MEDS: SYNTHROID 50 MCG PO (07:58)
[2023-11-05] MEDS: THERAGRAN 1 TABLET PO (07:58)
[2023-11-05] MEDS: HEPARIN 5000 UNITS SC ×2 (07:58→21:16)
[2023-11-05 09:22] LABS: Glucose - Point of Care 123 mg/dl (70-99)
[2023-11-05] MEDS: NOVOLOG FLEXPEN-LOW RESISTANCE SC ×3 (09:22→16:30)
--- NOTE | 2023-11-05 13:49 | CON.ID ---
Consultation
-
Date/Time Consultation Requested: October, 0005
Date/Time Consultation Performed: October, 1440
Requesting Provider: Dr. Vonda Cardoza
Performing Provider: Dr. Becky Robb
Reason for Consultation: Fever
Chief Complaint / Past History
Chief Complaint
Mental status change and fevers.
History of Present Illness
History obtained from the patient as well as from his at bedside. He is a 73-year-old male with diabetes mellitus, CAD status post stents, ischemic cardiomyopathy with ICD placement, pacemaker placement who recently presented to [facility] ER
about 2 weeks ago with 2 to 3-day history of fever, cough, shortness of breath, mental status change. He was tested positive for COVID. Patient was discharged without prescription for COVID treatment. Patient is not up-to-date with COVID booster
shot. However since then he has been having intermittent fevers, chills, sweats. Patient gets confused during febrile episodes. There is no pattern to the fevers. Has pain behind his eyes. He presented to [place] ER yesterday. He was
febrile 101.8. White count 14. Chest x-ray negative. Head CT no acute changes. Mental status improves between febrile episodes. He was having significant rhinorrhea yesterday that was clear. Still has dry cough. He is complaining of right
greater than left ear pain today. His son had COVID prior to the patient. No other ill contacts. No travel history. 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 Per he does not spend much time outdoors in grassy areas. He is low risk for
tickborne exposure. He has 2 dogs. No neck pain. No chest pain. No nausea vomit abdominal pain or diarrhea. No dysuria. Had diarrhea but not today. No dysuria or flank pain. He had dental crown placed approximately 2 months ago.
Past History
Additional Past Medical History:
Diabetes mellitus
Hypertension
CAD status post stents
Ischemic cardiomyopathy status post ICD/ppm placement
BPH
COPD
Lung nodules
Hypothyroidism
Anxiety
Left side Levy's palsy
Dyslipidemia
AAA endograft repair
Hernia repair
Nephrolithiasis status post lithotripsy
Right and left rotator cuff surgery
Allergy History:
vancomycin Allergy (Unknown, Verified 11/04/23 12:02)
Itching
Cephalosporins Allergy (Verified 11/04/23 12:02)
Could not recall taking cephalosporins
penicillin G Allergy (Verified 11/04/23 12:02)
Rash as child
Medications Reviewed: Yes
Current Antibiotics:
No abx
Social History
Tobacco: Former Smoker
Alcohol: None
Drug: None
Personal:
Living: With Family
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
Family History
Family History: Not Pertinent
Review of Systems
Review of Systems
General: Fever, Chills and Change in Appetite
HEENT: Headache and Pharyngitis; Negative Stiff Neck
Cardiovascular: Negative Chest Pain, Dyspnea or Edema
Respiratory: Cough; Negative Sputum Production
Gasteroenterology: Negative Nausea or Vomiting
Genital / Urological: Negative Dysuria or Flank Pain
Endocrine: Weakness
Musculoskeletal: Negative Arthralgias
Neurological: Negative Dizziness
All systems: All other systems were reviewed and were negative
Vital Signs
Temp Pulse Resp BP Pulse Ox
97.9 F 58 5 152/74 97
11/05/23 07:34 11/05/23 00:30 11/05/23 00:30 11/05/23 13:00 11/05/23 09:53
Physical Exam
Physical Exam
Constitutional: No Acute Distress and Comfortable
Head: Other (no frontal or maxillary sinus tenderness)
Eyes: No Conjunctival Hemorrhage and Sclera Anicteric
Pharynx: Benign
Oral: Negative No Thrush
Cardiovascular: Regular Rate, Irregular Rate and Other (LCW PPM/ICD site no erythema/warmth)
Pulmonary: Clear
Gastrointestinal: Soft, Non Tender, Non Distended and Normal Bowel Sounds
Genito-Urinary: Negative CVA Tenderness
Extremities: Negative Edema, Splinter Hemorrhage or Janeway Lesions
Musculoskeletal: Negative Joint Swelling, Joint Effusion or Spinal Tenderness
Skin: Negative Rash
Neurological: AO x 3; Negative Meningeal Signs
Lab / Diagnostic Study Results
11/05/23 04:53
11/05/23 04:53
Abs Immat Gran (auto) 0.1 10^3/uL (0-0.05) H 11/05/23 04:53
Absolute Neuts (auto) 10.9 10^3/uL (1.4-6.5) H 11/05/23 04:53
Absolute Lymphs (auto) 1.5 10^3/uL (1.2-3.4) 11/05/23 04:53
Absolute Monos (auto) 1.4 10^3/uL (0.1-0.6) H 11/05/23 04:53
Absolute Basos (auto) 0.0 10^3/uL (0-0.2) 11/05/23 04:53
Immature Gran % 0.7 % (0-0.5) H 11/05/23 04:53
Neutrophils % 78.0 % (42.2-75.2) H 11/05/23 04:53
Lymphocytes % 10.4 % (20.5-51.1) L 11/05/23 04:53
Monocytes % 10.2 % (1.7-9.3) H 11/05/23 04:53
Eosinophils % 0.5 % (0-6) 11/05/23 04:53
Basophils % 0.2 % (0-2) 11/05/23 04:53
Microbiology Results
Micro:
11/05/23 13:34 Urine Culture - Pending
Urine
11/04/23 23:48 Blood Culture - Pending
Blood/Venous
11/04/23 23:48 Blood Culture - Pending
Blood/Venous
Assessment / Plan
# Fever x 2 weeks
# Leukocytosis
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 Not uptodate with booster. COVID negative here
# Mental status change during febrile episodes
#hx PPM/ICD placement; dental work 2 months ago
# hx AAA endograft repair
- CXR negative
-UA negative
- Await blood cultures.
- TTE in am
- Observe off abx for now.
-Follow temps/wbc
[2023-11-05 14:19] LABS: Iron 22 ug/dl (49-181)
[2023-11-05 14:30] LABS: Percent Saturation 10 % (20-50); Total Iron Binding Capacity 216 ug/dl (261-462)
--- NOTE | 2023-11-05 14:39 | PTCARENOTE ---
Received patient from ED. Walked from stretcher to bed with a steady gait. Denies pain/discomfort. Oriented to room and use of call rodriguez. at bedside. Call rodriguez within reach.
[2023-11-05 15:38] LABS: Vitamin D, 25-OH*** 49.8 ng/mL (30-80)
[2023-11-05] MEDS: TYLENOL 1000 MG PO (15:47)
[2023-11-05 15:51] LABS: TSH Reflex To Free T4 4.96 uIU/ml (0.47-4.68)
[2023-11-05 16:06] LABS: Glucose - Point of Care 115 mg/dl (70-99)
[2023-11-05 16:27] LABS: Folate 10.2 ng/ml (2.76-20); Vitamin B12 453 pg/ml (239-931)
[2023-11-05] MEDS: ASPIR LOW (ENTERIC COATED) 81 MG PO (16:43)
--- NOTE | 2023-11-05 18:00 | PTCARENOTE ---
Received Pt at 1500. He walked from the stretcher to the bed. Oriented to room and use of call rodriguez. VSS at time of admission with temp 99.9. Family in to visit. Iv team stated that Pt noted to have rigors. Pt assessed and rectal temp showed 101.3
temp. Tylenol administered and MD aware. Placed on tele, ID made aware, repeat blood cultures ordered. Pt reassessed showing temp 102.5 oral temp, Ibuprofen administered with + effects. Follow up temp read 98.8 orally. MD aware of readings and
interventions.
--- NOTE | 2023-11-05 21:00 | PTCARENOTE ---
Critical Lab result reported to SHEKHAR Gutiérrez who is on unit at [facility] time. Patient febrile earlier today, Preleminary blood cultures positive showing positive cocci in clusters. Patient on no abx at this time. Orders entered in EMR for Zyvox IV
BID. Reviewed with patient medication and need for abx at this time. Patient verbalized a good understanding. Care ongoing.
[2023-11-05] MEDS: FLOMAX 0.4 MG PO (21:15)
[2023-11-05] MEDS: ZYVOX 600 MG 300 IV (21:15)
[2023-11-05 21:35] LABS: Glucose - Point of Care 184 mg/dl (70-99)
--- NOTE | 2023-11-05 23:00 | PTCARENOTE ---
Patient had a 28 beat run of V. Tach. Patient asymptomatic, patient has an AICD/Pacemaker. K+ 3.8. No Mag level. Patient is in for a BMP and Mag in am. B. Reinaldo CORRIGAN notified. No new orders at this time. Will continue to monitor, care ongoing.
[2023-11-06] VITALS (7 sets, daily range): BP systolic 100–140; BP diastolic 46–66; PULSE 73; O2SAT 96; BMI 21.3; BMI 21.5
[2023-11-06] MEDS: SYNTHROID 50 MCG PO (06:02)
[2023-11-06] MEDS: MOTRIN 400 MG PO (06:09)
[2023-11-06 06:56] LABS: Hematocrit 31.7 % (39.0-52.0); Hemoglobin 10.7 g/dL (13.0-18.0); Mean Corp Hgb Conc. 33.8 g/dL (33.0-37.0); Mean Corpuscular Hgb 26.4 pg (27.0-31.0); Mean Corpuscular Volume 78.1 fL (80.0-94.0); Mean Platelet Volume 9.8 fL (7.4-10.4); Platelet Count 222 10^3/uL (130-400); Red Blood Cell Count 4.06 10^6/uL (4.70-6.10); Red Cell Dist. Width 14.4 % (11.5-14.5); White Blood Cell Count 12.6 10^3/uL (4.8-10.8)
--- NOTE | 2023-11-06 07:06 | W.PN.HOSP.TC ---
Today's Communication/Plan
-
antibiotics
PT/OT
CT abd/pelvis
Cardio eval POLLY
Assessment / Plan
Assessment / Plan
Physical Exam
General: Well Developed, Well Nourished and No Apparent Distress
HEENT: NormoCephalic, Moist mucous membranes and Atraumatic
Respiratory: Clear
Cardiac: S1/S2 and Regular Rhythm; No Murmur or Rub
GI: Soft, Non Tender, Non Distended and Normal Bowel Sounds; No Organomegaly
Musculoskeletal: No Clubbing, No Cyanosis and No Edema
Skin: No Rash
Neuro: Awake Alert Conversant Coherent
73M diabetes, coronary artery disease hx stents, ICD, chronic HFpEF, HTN, BPH, COPD, HLD, GERD, Hypothyroidism, Anxiety, Hx left-sided Levy's palsy, p/w waxing and waning confusion. Patient had a fall 2 weeks ago and was admitted [facility] and
found to have COVID. Family reported he never completely recovered from COVID. He continued to have productive cough and fevers/chills- with associate confusion when febrile. Reported left frontal headache periorbital without vision issues. No
nuchal rigidity or photophobia noted.
# Metabolic encephalopathy unclear etiology possible viral encephalitis vs endocarditis
#mild Leukocytosis
#Bacteremia
-CT head negative for acute abnormality, repeat CT Head in 24H (holding off on MRI given pacemaker)
-Chest x-ray negative
-Urinalysis negative
- preliminary blood culture pos for gram pos cocci
-empiric Vancomycin as per ID, Benadryl prn for itching
-MRSA screen
-ECHO appreciated preserved EF 60-65% no significant valve abn's no significant change from prior ECHO 01/2023
-ID eval appreciated check CT abd/pelvis possible graft infection, POLLY recommended for further evaluation possible endocarditis Cardio eval requested
# Recent COVID infection 2 weeks ago
#Anxiety/Depression
-Outpatient follow-up with psychiatry
-home Lexapro placed on hold d/t interaction empiric Linezolid as above
Type 2 diabetes
-Hold metformin, Januvia
-Hold glipizide
-Insulin sliding scale
Coronary artery disease history of cardiac stents with ICD
-Continue aspirin
Chronic HFpEF
-Continue Coreg
Essential hypertension
BPH
-Continue tamsulosin
COPD
-Continue inhalers
Hyperlipidemia
-Continue statin
GERD
-Continue famotidine, Protonix
Hypothyroidism
-Continue levothyroxine
History of left-sided Levy's palsy
PT/OT
Full code
DVT prophylaxis-heparin
Regular diet
Discussed with patient and patient's Renée at bedside
I spent a total of 50 minutes with the patient or on the floor. More than 50% of this time involved counseling and coordination of care.
Anticipated Discharge: > 48 hours
Subjective/Interval History
-
Date of Service: November 06, 2023
Symptomatically improved. Reports resolution of chills and headache. No further fever noted since yesterday.
Objective Data
-
Labs:
Laboratory Results
11/06/23
06:21
WBC 12.6 H
Hgb 10.7 L
Hct 31.7 L
Plt Count 222 D
Sodium Pending
Potassium Pending
Chloride Pending
Carbon Dioxide Pending
BUN Pending
Creatinine Pending
Glucose Pending
Calcium Pending
Vital Signs:
Vital Signs
Temp Pulse Resp BP Pulse Ox
97.5 F 55 18 140/65 96
11/06/23 03:14 11/06/23 03:14 11/06/23 03:14 11/06/23 03:14 11/06/23 03:14
I&O
11/05/23 11/06/23 11/07/23
06:59 06:59 06:59
Intake Total 720 / 720
Output Total 150 / 150
Balance 570 / 570
[2023-11-06 07:09] LABS: Blood Urea Nitrogen 17 mg/dl (9-20); Calcium 9.5 mg/dl (8.4-10.2); Carbon Dioxide 30 mmol/L (22-30); Chloride 100 mmol/L (98-107); Estimated Creatinine Clearance 57 ml/min; Glucose 123 mg/dl (70-99); Magnesium 1.4 mg/dl (1.6-2.3); Phosphorus 2.4 mg/dl (2.5-4.5); Potassium 3.5 mmol/L (3.5-5.1); Sodium 135 mmol/L (135-145); eGFR > 60.00
--- NOTE | 2023-11-06 08:25 | W.PN.ID1 ---
Date of Service
Date of Service: November 06, 2023
Today's Communication
See below.
Assessment / Plan
# GPC cluster bacteremia (3 sets)
# Fever x 2 weeks
# Leukocytosis
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 Not uptodate with booster. COVID negative here
# Mental status change during febrile episodes
#hx PPM/ICD placement; dental work 2 months ago
# hx AAA endograft repair
-TTE no vege.
- Repeat blood cultures daily until clear
- Recommend POLLY.
- Ordered CTA abd/pelvis to rule out AAA endograft infection
- Start Vancomycin today (d1)
- DC linezolid (ordered by hospitalist last night)
-Follow temps/wbc
#Additional Past Medical History:
Diabetes mellitus
Hypertension
CAD status post stents
Ischemic cardiomyopathy status post ICD/ppm placement
BPH
COPD
Lung nodules
Hypothyroidism
Anxiety
Left side Levy's palsy
Dyslipidemia
AAA endograft repair
Hernia repair
Nephrolithiasis status post lithotripsy
Right and left rotator cuff surgery
Chief Complaint
-: Fever
Subjective / Review of Systems
Feeling better. Less confused.
Vital Signs / Physical Exam
Vital Signs
Vital Signs
Temp Pulse Resp BP Pulse Ox
99.9 F 93 18 131/66 94
11/06/23 07:00 11/06/23 07:00 11/06/23 07:00 11/06/23 07:00 11/06/23 07:00
Selected Entries
11/05/23
16:40
Temp max 102.5 F H
Physical Exam
Constitutional: Comfortable
Cardiovascular: Regular Rate, S1/S2 and Other (left chest wall PPM/ICD no erythema)
Pulmonary: Clear
Gastrointestinal: Soft, Non Tender and Normal Bowel Sounds
Genito-Urinary: Negative CVA Tenderness
Extremities: Negative Edema
Neurological: AO x 3
Objective Data
Lab Data
Lab Results
11/06/23 06:21
11/06/23 06:21
Estimated Creat Clear 57 ml/min 11/06/23 06:21
Total Bilirubin 1.1 mg/dl (0.2-1.3) 11/05/23 04:53
AST 38 U/L (17-59) 11/05/23 04:53
ALT 19 U/L (0-50) 11/05/23 04:53
Alkaline Phosphatase 41 U/L (38-126) 11/05/23 04:53
Most recent labs reviewed.
Micro Results:
11/04/23 23:48 Blood Culture - Preliminary
Blood/Venous Positive culture in progress
Gram Stain - Final
11/04/23 23:48 Blood Culture - Preliminary
Blood/Venous Positive culture in progress
Gram Stain - Final
11/05/23 23:53 MRSA Screen - Pending
Nose
11/05/23 16:26 Blood Culture - Pending
Blood/Venous
11/05/23 13:34 Urine Culture - Pending
Urine
[2023-11-06 08:39] LABS: Glucose - Point of Care 128 mg/dl (70-99)
--- NOTE | 2023-11-06 08:56 | PHA.VAN.IN ---
Assessment
- Assessment
Renal Function: Appears similar to baseline (0.9 02/21/23 has fluctuated recently was 1.16 September 2023)
Maximum Temperature: 102.5 11/05/23 at 16:40
Minimum Temperature: 97.5 11/06/23 at 03:14
- Previous Dosing Experience
Previous Regimen: 1gm loading dose then 1gm Q24 which was changed to 750mg Q12(no lvls taken)
Date of Regimen: 08/18/22
Provided Trough of: 1gm Q24-11.8, 750mg Q12-12.9
Provided AUC of: 1gm Q24- 483, 750mg Q12-438
Patient's SCR is: Elevated compared to previous dosing experience (initially 1.3 then came down in 24hrs to 0.8)
Patient's weight is: Decreased compared to previous dosing experience (72.1. current weight is below ideal body weight)
AUC Dosing Plan
- Dosing Variables
Dosing Weight (kg): 61.7
Dosing CrCl (ml/min): 57
Vd coefficient (L/kg): 0.7
- Empiric Dosing
Initial / Loading Dose: Vancomycin 1250mg IV x 1 dose. Run over 2hrs due to prev hx itching
Maintenance Regimen: Vancomycin 1000mg IV Q24hrs. Run over 1.5hrs due to prev hx itching
Estimated AUC (mcg*h/mL): 460
Estimated Peak (mcg*h/mL): 33
Estimated Trough (mcg/ml): 10
Estimated Half Life (H): 13.4
Will adjust regimen accordingly based on renal function and patient tolerance to vancomycin due to previous history of itching
- Monitoring
No levels ordered at this time: Will order levels according to vancomycin dosing protocol
Pharmacokinetics Vancomycin I
- -
Patient Age: 73
Patient Sex: Male
Vancomycin Day #: 1
Indication: Bacteremia
Requesting Provider: Dr. Windy Robb
Pertinent Antimicrobial Allergies:
Vancomycin-itching, penicilin-unknown reaction as child, cephalosporins-cross reactivity w/pcn, unknown reaction
Height / Weight:
Height 5 ft 7 in
Actual Weight 61.689 kg
IBW in k.1
Pertinent Past Medical History: DM,AAA repair w/endograft, PPM/ICD, dental work 2 mos ago, recent COVID
- Vital Signs / Lab Results
Temp Pulse Resp BP Pulse Ox
99.9 F 93 18 131/66 94
11/06/23 07:00 11/06/23 07:00 11/06/23 07:00 11/06/23 07:00 11/06/23 07:00
Lab Results - Hematology
11/05/23 11/06/23
04:53 06:21
WBC 14.0 H 12.6 H
Lab Results - Chemistry
11/05/23 11/06/23
04:53 06:21
BUN 15 17
Creatinine 0.8 1.0
Estimated Creat Clear 72 57
Albumin 3.0 L
Microbiology Results
11/04/23 23:48 Blood Culture - Preliminary
Blood/Venous Positive culture in progress
Gram Stain - Final
11/04/23 23:48 Blood Culture - Preliminary
Blood/Venous Positive culture in progress
Gram Stain - Final
[2023-11-06] MEDS: NOVOLOG FLEXPEN-LOW RESISTANCE SC ×3 (10:37→16:44)
[2023-11-06] MEDS: MAGNESIUM SULFATE 100 IV (10:41)
[2023-11-06] MEDS: POTASSIUM PHOSPHATE 259.0909 MEQ IV (10:45)
[2023-11-06] MEDS: THERAGRAN 1 TABLET PO (11:08)
[2023-11-06] MEDS: PROTONIX 40 MG PO (11:08)
[2023-11-06] MEDS: COREG 6.25 MG PO (11:08)
[2023-11-06] MEDS: DETROL LA 4 MG PO (11:08)
[2023-11-06] MEDS: CRESTOR 40 MG PO (11:09)
[2023-11-06] MEDS: HEPARIN 5000 UNITS SC ×2 (11:10→22:21)
[2023-11-06] MEDS: VANCOCIN 275 MG IV (11:10)
[2023-11-06 11:49] LABS: Glucose - Point of Care 126 mg/dl (70-99)
--- NOTE | 2023-11-06 13:55 | CON.CAR ---
Addendum entered and electronically signed by Jose Swain, 11/06/23 15:16:
I saw and examined the patient.
The Manufacturing Engineering Manager's note was reviewed and I agree with the note.
Comment:
General: Well Developed, Well Nourished and No Apparent Distress
HEENT: Normocephalic, Anicteric and Moist Mucous Membranes
Respiratory: Clear and Non Labored Respirations
Cardiac: S1/S2 and Regular Rhythm; L CIED site c/d/i, no erythema warmth or swelling
Musculoskeletal: No Clubbing, No Cyanosis and No Edema
Skin: Warm and Dry
Neuro: AO x 3 and Nonfocal/Grossly Intact
Psych: Calm
Tele ASVP
TTE EF 60-65%, stage I diastolic dysfunction, trace TR, estimated PAP 34 mmHg
A/P as below
Bacteremia
Fevers
Recent COVID 19 infection
ICM with ICD in place
CAD with prior PCI
AAA with prior repair
POLLY tentatively Thursday AM to assess for possible IE in the setting of bacteremia; NPO after midnight
monitor BCx, ABX per ID
Increase coreg
Replete electrolytes
Monitor on telemetry
Original Note:
Consultation
Consultation Request
Date/Time Consultation Requested: 11/06/2023
Date/Time Consultation Performed:
Requesting Provider: Dr. Cardoza
Performing Provider: Dr. Swain
Reason for Consultation: Bacteremia, ?POLLY
Medical History
-
History of Present Illness:
HPI: Meir is a 73 year old male with PMH of CAD w/ prior RCA stent, ischemic CM, ICD, chronic HFimpEF, HTN, HLD, AAA s/p repair, COPD, DM2, hypothyroidism, and BPH. He presented to the ER with fevers and confusion. He recently had COVID 19, testing
positive approximately 2 weeks ago. He was treated conservatively for this, however continued to have fevers persistently since that time. Over the past few days then developed confusion, prompting ER evaluation. He had head CT which was negative,
although due to fevers with elevated WBC and altered mental status, he was admitted for further workup and evaluation. Blood cultures returned positive for staphylococcus. No clear source identified. Transthoracic echo without clear evidence of
vegetation. Cardiology consulted for consideration of POLLY. He continues on antibiotics and with treatment his confusion has improved. He reports no symptoms at this time and states he is feeling well.
PMH:
CAD
s/p RCA PCI 2003
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
Ischemic CM, w/ recovered EF
s/p BiV ICD
Chronic HFimpEF
HTN
HLD
AAA s/p EVAR 12/2021
COPD
DM2
Hypothyroidism
BPH
Past Medical History
Past Medical History: Other (In HPI)
Past Surgical History: Cardiac (s/p BiV ICD, RCA PCI), Tonsilectomy and Other (lithotripsy, mastoid surgery, b/l rotator cuff repair, inguinal hernia repair, EVAR, iliac stent)
Social History
Tobacco: Former Smoker
Alcohol: None
Drug: None
Personal:
Living: With Family
Employment: Retired
Family History
Family History: CAD and Diabetes
Allergies / Home Medications
Allergy/AdvReac Type Severity Reaction Status Date / Time
vancomycin Allergy Unknown Itching Verified 11/04/23 12:02
Cephalosporins Allergy penicillin Verified 11/04/23 12:02
allergy
penicillin G Allergy unsure of Verified 11/04/23 12:02
reaction-was
allergic
as child
Penicillins Allergy Unknown Verified 11/04/23 12:02
�Medication �Instructions �Recorded �Confirmed �Type
albuterol sulfate 90 mcg/actuation 2 puff inhalation R Q4HPRN PRN SOB 09/17/12 11/04/23 History
aerosol inhaler (Proventil HFA)
aspirin 81 mg tablet,delayed 81 mg PO QPM Blood clot 09/17/12 11/04/23 History
release prevention/tx
levothyroxine 50 mcg tablet 50 mcg PO DAILY Thyroid 09/17/12 11/04/23 History
(Levoxyl)
pantoprazole 40 mg tablet,delayed 40 mg PO DAILY Gastrointestinal 10/04/15 11/04/23 History
release issue
rosuvastatin 40 mg tablet (Crestor) 40 mg PO DAILY High cholesterol 11/23/17 11/04/23 History
escitalopram oxalate 10 mg tablet 10 mg PO DAILY Mental 12/27/21 11/04/23 History
(Lexapro) Health/Anxiety
multivitamin 1 tab PO DAILY Supplement 12/27/21 11/04/23 History
tamsulosin 0.4 mg capsule 0.4 mg PO HS Urinary issue 12/27/21 11/04/23 History
carvedilol 6.25 mg tablet 6.25 mg PO BID Blood Pressure 11/04/23 11/04/23 History
metformin 500 mg tablet 500 mg PO BIDWMEAL Diabetes 11/04/23 11/04/23 History
tolterodine 4 mg capsule,extended 4 mg PO DAILY Urinary Issue 11/04/23 11/04/23 History
release 24 hr
Review of Systems
-
History Source: Patient
All other systems: Negative unless noted
Physical Exam
Vital Signs
Temp Pulse Resp BP Pulse Ox
98.4 F 61 18 124/63 96
11/06/23 11:15 11/06/23 11:15 11/06/23 11:15 11/06/23 11:15 11/06/23 11:15
Lab Results
11/06/23 06:21
11/06/23 06:21
Physical Exam
General: Well Developed, Well Nourished and No Apparent Distress
HEENT: Normocephalic, Anicteric and Moist Mucous Membranes
Respiratory: Clear and Non Labored Respirations
Cardiac: S1/S2 and Regular Rhythm
Musculoskeletal: No Clubbing, No Cyanosis and No Edema
Skin: Warm and Dry
Neuro: AO x 3 and Nonfocal/Grossly Intact
Psych: Calm
Impression / Plan
-
Civil Cad Tech: Dr. Prabha Avery
Impression:
Presented with fevers, AMS
Bacteremia
Recent Covid-19
CAD
s/p RCA PCI 2003
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
Ischemic CM, w/ recovered EF
s/p BiV ICD
Chronic HFimpEF
HTN
HLD
AAA s/p EVAR 12/2021
COPD
DM2
Hypothyroidism
BPH
Echo 11/06/2023: EF 60-65%, stage I diastolic dysfunction, trace TR, estimated PAP 34 mmHg
Plan:
-Presented with fever and altered mental status.
-Blood cultures + w/ staph. No clear source. Continue abx per ID
-CT abdomen/pelvis pending. Urine culture negative. CXR negative.
-Echo 11/05 with no clear evidence of vegetation. Will plan for POLLY Thursday, 11/08.
-28 beats of NSVT noted on telemetry. ICD in place. Will increase coreg to 12.5mg BID.
-V Paced on EKG.
-K 3.5, mag 1.4. Agree w/ repletion. Keep K > 4, Mag > 2.
-Continue aspirin 81mg daily w/ h/o CAD.
-Continue to follow on telemetry.
HPI: Meir is a 73 year old male with PMH of CAD w/ prior RCA stent, ischemic CM, ICD, chronic HFimpEF, HTN, HLD, AAA s/p repair, COPD, DM2, hypothyroidism, and BPH. He presented to the ER with fevers and confusion. He recently had COVID 19, testing
positive approximately 2 weeks ago. He was treated conservatively for this, however continued to have fevers persistently since that time. Over the past few days then developed confusion, prompting ER evaluation. He had head CT which was negative,
although due to fevers with elevated WBC and altered mental status, he was admitted for further workup and evaluation. Blood cultures returned positive for staphylococcus. No clear source identified. Transthoracic echo without clear evidence of
vegetation. Cardiology consulted for consideration of POLLY. He continues on antibiotics and with treatment his confusion has improved. He reports no symptoms at this time and states he is feeling well.
Data Reviewed
-
EKG: Tracing Personally Visualized and interpreted
CT Scan: Report Reviewed by me
Medical Tests (Nuc Med, Echo etc): Report Reviewed by me
Labs: Labs Reviewed by me
Old Records: Reviewed
[2023-11-06 16:42] LABS: Glucose - Point of Care 92 mg/dl (70-99)
[2023-11-06] MEDS: ASPIR LOW (ENTERIC COATED) 81 MG PO (18:00)
[2023-11-06] MEDS: TYLENOL 1000 MG PO ×2 (18:00→22:22)
[2023-11-06 21:27] LABS: Glucose - Point of Care 156 mg/dl (70-99)
[2023-11-06] MEDS: COREG 12.5 MG PO (22:21)
[2023-11-06] MEDS: FLOMAX 0.4 MG PO (22:22)
[2023-11-07] VITALS (7 sets, daily range): BP systolic 120–152; BP diastolic 53–81; PULSE 66; O2SAT 97; BMI 21.5
[2023-11-07] MEDS: MOTRIN 400 MG PO ×3 (04:11→21:05)
[2023-11-07] MEDS: VANCOCIN 200 IV (06:09)
[2023-11-07] MEDS: SYNTHROID 50 MCG PO (06:09)
--- NOTE | 2023-11-07 07:37 | W.PN.HOSP.TC ---
Today's Communication/Plan
-
antibiotics
PT/OT
pain control
Mon POLLY
Assessment / Plan
Assessment / Plan
Physical Exam
General: Well Developed, Well Nourished and No Apparent Distress
HEENT: NormoCephalic, Moist mucous membranes and Atraumatic
Respiratory: Clear
Cardiac: S1/S2 and Regular Rhythm; No Murmur or Rub
GI: Soft, Non Tender, Non Distended and Normal Bowel Sounds; No Organomegaly
Musculoskeletal: No Clubbing, No Cyanosis and No Edema
Skin: No Rash
Neuro: Awake Alert Conversant Coherent
73M diabetes, coronary artery disease hx stents, ICD, chronic HFpEF, HTN, BPH, COPD, HLD, GERD, Hypothyroidism, Anxiety, Hx left-sided Levy's palsy, p/w waxing and waning confusion. Patient had a fall 2 weeks ago and was admitted [facility] and
found to have COVID. Family reported he never completely recovered from COVID. He continued to have productive cough and fevers/chills- with associate confusion when febrile. Reported left frontal headache periorbital without vision issues. No
nuchal rigidity or photophobia noted.
# Metabolic encephalopathy unclear etiology possible viral encephalitis vs endocarditis
#mild Leukocytosis
#Bacteremia
-CT head negative for acute abnormality, repeat CT Head in 24H (holding off on MRI given pacemaker)
-Chest x-ray negative
-Urinalysis negative
- preliminary blood culture pos for gram pos cocci
-empiric Vancomycin as per ID, Benadryl prn for itching
-MRSA screen
-ECHO appreciated preserved EF 60-65% no significant valve abn's no significant change from prior ECHO 01/2023
-ID eval appreciated check CT abd/pelvis possible graft infection, POLLY recommended for further evaluation possible endocarditis Cardio eval requested
# Recent COVID infection 2 weeks ago
#Anxiety/Depression
-Outpatient follow-up with psychiatry
-Lexapro resumed
Type 2 diabetes
-Hold metformin, Januvia
-Hold glipizide
-Insulin sliding scale
Coronary artery disease history of cardiac stents with ICD
-Continue aspirin
Chronic HFpEF
-Continue Coreg
Essential hypertension
BPH
-Continue tamsulosin
COPD
-Continue inhalers
Hyperlipidemia
-Continue statin
GERD
-Continue famotidine, Protonix
Hypothyroidism
-Continue levothyroxine
History of left-sided Levy's palsy
PT/OT
Full code
DVT prophylaxis-heparin
Regular diet
I spent a total of 50 minutes with the patient or on the floor. More than 50% of this time involved counseling and coordination of care.
Anticipated Discharge: > 48 hours
Subjective/Interval History
-
Date of Service: November 07, 2023
No acute distress appears comfortable at this time. Sitting up in chair. No new fever noted
Objective Data
-
Labs:
Laboratory Results
11/07/23
06:00
WBC Pending
Hgb Pending
Hct Pending
Plt Count Pending
Sodium Pending
Potassium Pending
Chloride Pending
Carbon Dioxide Pending
BUN Pending
Creatinine Pending
Glucose Pending
Calcium Pending
Vital Signs:
Vital Signs
Temp Pulse Resp BP Pulse Ox
97.8 F 59 22 147/69 94
11/07/23 03:00 11/07/23 03:00 11/07/23 03:00 11/07/23 03:00 11/07/23 03:00
I&O
11/06/23 11/07/23 11/08/23
06:59 06:59 06:59
Intake Total 720 / 720 1355 / 1355 120 / 120
Output Total 150 / 150
Balance 570 / 570 1355 / 1355 120 / 120
[2023-11-07 07:55] LABS: Glucose - Point of Care 137 mg/dl (70-99)
[2023-11-07] MEDS: NOVOLOG FLEXPEN-LOW RESISTANCE SC ×3 (08:40→17:09)
[2023-11-07] MEDS: COREG 12.5 MG PO ×2 (09:14→20:53)
[2023-11-07] MEDS: PROTONIX 40 MG PO (09:14)
[2023-11-07] MEDS: CRESTOR 40 MG PO (09:14)
[2023-11-07] MEDS: THERAGRAN 1 TABLET PO (09:14)
[2023-11-07] MEDS: DETROL LA 4 MG PO (09:14)
[2023-11-07] MEDS: HEPARIN 5000 UNITS SC ×2 (09:15→20:54)
[2023-11-07 09:17] LABS: Hematocrit 29.3 % (39.0-52.0); Hemoglobin 9.8 g/dL (13.0-18.0); Mean Corp Hgb Conc. 33.4 g/dL (33.0-37.0); Mean Corpuscular Hgb 26.4 pg (27.0-31.0); Mean Platelet Volume 9.8 fL (7.4-10.4); Platelet Count 259 10^3/uL (130-400); Red Blood Cell Count 3.71 10^6/uL (4.70-6.10); Red Cell Dist. Width 14.6 % (11.5-14.5); White Blood Cell Count 10.9 10^3/uL (4.8-10.8)
[2023-11-07 09:42] LABS: Blood Urea Nitrogen 16 mg/dl (9-20); Carbon Dioxide 30 mmol/L (22-30); Chloride 101 mmol/L (98-107); Estimated Creatinine Clearance 57 ml/min; Glucose 118 mg/dl (70-99); Magnesium 2.2 mg/dl (1.6-2.3); Potassium 3.8 mmol/L (3.5-5.1); Sodium 135 mmol/L (135-145); eGFR > 60.00
--- NOTE | 2023-11-07 09:47 | PHA.VAN.FU ---
Vancomycin Assessment / Plan
- Assessment
Renal Function: Stable
WBC's are: Trending Down
In the past 24 hrs, patient has been: Afebrile
- Dosing Plan
Continue: vanc 1000 mg q24h (run over 1.5 h due to prev hx of itching) 1st dose 11/06
- Monitoring Plan
No level(s) ordered at this time: consider levels when pt nears steady state
- Follow Up
Pharmacy will continue to follow.
Vancomycin Follow UP
- -
Patient Age: 73
Patient Sex: Male
Vancomycin Day #: 2
Indication: Bacteremia
Requesting Provider: Dr. Windy Robb
Pertinent Antimicrobial Allergies:
Vancomycin-itching, penicilin-unknown reaction as child, cephalosporins-cross reactivity w/pcn, unknown reaction
Height / Weight:
Height 5 ft 7 in
Actual Weight 62.278 kg
IBW in k.1
Pertinent Past Medical History: DM,AAA repair w/endograft, PPM/ICD, dental work 2 mos ago, recent COVID
- Vital Signs / Lab Results
Temp Pulse Resp BP Pulse Ox
97.6 F 58 16 146/81 95
11/07/23 07:00 11/07/23 08:06 11/07/23 08:06 11/07/23 07:00 11/07/23 08:06
Lab Results - Hematology
11/05/23 11/06/23 11/07/23
04:53 06:21 08:44
WBC 14.0 H 12.6 H 10.9 H
Lab Results - Chemistry
11/05/23 11/06/23 11/07/23
04:53 06:21 08:44
BUN 15 17 16
Creatinine 0.8 1.0 1.0
Estimated Creat Clear 72 57 57
Albumin 3.0 L
Microbiology Results
11/05/23 16:26 Blood Culture - Preliminary
Blood/Venous Coagulase neg. staphylococcus
Gram Stain - Preliminary
11/04/23 23:48 Blood Culture - Preliminary
Blood/Venous Coagulase neg. staphylococcus
Gram Stain - Final
11/04/23 23:48 Blood Culture - Preliminary
Blood/Venous Coagulase neg. staphylococcus
Gram Stain - Final
11/05/23 23:53 MRSA Screen - Final
Nose No Methicillin Resistant Staphylococcus aureus isolated.
11/05/23 13:34 Urine Culture - Final
Urine No Significant Growth
[2023-11-07 12:26] LABS: Glucose - Point of Care 146 mg/dl (70-99)
[2023-11-07] MEDS: FEOSOL 325 MG PO (13:12)
--- NOTE | 2023-11-07 14:20 | CM ---
Reviewed chart, met with patient to obtain information for assessment. Patient stated that he lives with his in a two story home with three steps to enter. He described himself as independent with his ADLs, personal care, dressing bathing and
toileting. 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 He drives and can get to his appointments and do his own shopping.
Eulaliot denied any VN in the past.
He has been to a SNF but could not recall the name.
He denied any DME in his home with exception of a walker he does not use.
Patient has a prescription plan and uses, [facility] in [place] for all of his medications.
Patient's PCP is, Sam Wilder.
Patient progressing well in therapy and would like to return home with his when stable.
Plan: Case management will continue to follow and assist with discharge planning. Home when medically cleared.
--- NOTE | 2023-11-07 16:22 | PTCARENOTE ---
Patient c/o R flank pain. Assisted to bed and head elevated. Ibuprofen administered with +effects. MD made aware of patients R flank pain complaints. Call rodriguez within reach.
[2023-11-07 16:57] LABS: Glucose - Point of Care 115 mg/dl (70-99)
[2023-11-07] MEDS: ASPIR LOW (ENTERIC COATED) 81 MG PO (20:53)
[2023-11-07] MEDS: FLOMAX 0.4 MG PO (20:54)
[2023-11-07 21:24] LABS: Glucose - Point of Care 174 mg/dl (70-99)
[2023-11-07] MEDS: TYLENOL 1000 MG PO (22:24)
[2023-11-08 03:00] VITALS: BP 119/50
[2023-11-08] MEDS: VANCOCIN 200 IV (05:47)
[2023-11-08] MEDS: SYNTHROID 50 MCG PO (05:47)
[2023-11-08] MEDS: MOTRIN 400 MG PO ×2 (05:51→14:43)
[2023-11-08 06:00] VITALS: BMI 21.4
--- NOTE | 2023-11-08 07:18 | W.PN.HOSP.TC ---
Today's Communication/Plan
-
npo after midnight for POLLY
pain control, lidocaine patch and prn oxycodone added right flank pain unclear etiology
cont abx
PT/OT
Assessment / Plan
Assessment / Plan
Physical Exam
General: Well Developed, Well Nourished and No Apparent Distress
HEENT: NormoCephalic, Moist mucous membranes and Atraumatic
Respiratory: Clear
Cardiac: S1/S2 and Regular Rhythm; No Murmur or Rub
GI: Soft, Non Tender, Non Distended and Normal Bowel Sounds; No Organomegaly
Musculoskeletal: No Clubbing, No Cyanosis and No Edema
Skin: No Rash
Neuro: Awake Alert Conversant Coherent
73M diabetes, coronary artery disease hx stents, ICD, chronic HFpEF, HTN, BPH, COPD, HLD, GERD, Hypothyroidism, Anxiety, Hx left-sided Levy's palsy, p/w waxing and waning confusion. Patient had a fall 2 weeks ago and was admitted [facility] and
found to have COVID. Family reported he never completely recovered from COVID. He continued to have productive cough and fevers/chills- with associate confusion when febrile. Reported left frontal headache periorbital without vision issues. No
nuchal rigidity or photophobia noted.
# Metabolic encephalopathy unclear etiology possible viral encephalitis vs endocarditis
#mild Leukocytosis
#Bacteremia
-CT head negative for acute abnormality, repeat CT Head in 24H (holding off on MRI given pacemaker)
-Chest x-ray negative
-Urinalysis negative
- preliminary blood culture pos for gram pos cocci
-empiric Vancomycin as per ID, Benadryl prn for itching
-MRSA screen
-ECHO appreciated preserved EF 60-65% no significant valve abn's no significant change from prior ECHO 01/2023
-ID eval appreciated CT abd/pelvis negative for graft infection, POLLY recommended for further evaluation possible endocarditis Cardio eval appreciated NPO after midnight for POLLY Thursday
#Possible PNA
Right intermittent sharp flank pain below rib cage unclear etiology
prn ibuprofen, lidocaine patch,
PRN oxycodone added
recent CT abd/pelvis appreciated no obstructive uropathy Posterior right lower lobe pneumonia with small right pleural effusion (stable respiratory status on room air).
checking Bladder Renal US for possible Right ureter stone though seems unlikely given recent CT imaging
checking Chest US right possible IR eval thoracentesis if significant fluid is present
# Recent COVID infection 2 weeks ago
#Anxiety/Depression
-Outpatient follow-up with psychiatry
-Lexapro resumed
Type 2 diabetes
-Hold metformin, Januvia
-Hold glipizide
-Insulin sliding scale
Coronary artery disease history of cardiac stents with ICD
-Continue aspirin
Chronic HFpEF
-Continue Coreg
Essential hypertension
BPH
-Continue tamsulosin
COPD
-Continue inhalers
Hyperlipidemia
-Continue statin
GERD
-Continue famotidine, Protonix
Hypothyroidism
-Continue levothyroxine
History of left-sided Levy's palsy
PT/OT
Full code
DVT prophylaxis-heparin
Regular diet
discussed with patient and his Renée
I spent a total of 50 minutes with the patient or on the floor. More than 50% of this time involved counseling and coordination of care.
Anticipated Discharge: 24 - 48 hours
Subjective/Interval History
-
Date of Service: November 08, 2023
Reports right intermittent flank pain sharp unclear etiology localizable to area below rib cage. Worse with cough
Objective Data
-
Labs:
Laboratory Results
11/08/23
06:00
WBC Pending
Hgb Pending
Hct Pending
Plt Count Pending
Sodium Pending
Potassium Pending
Chloride Pending
Carbon Dioxide Pending
BUN Pending
Creatinine Pending
Glucose Pending
Calcium Pending
Vital Signs:
Vital Signs
Temp Pulse Resp BP Pulse Ox
97.7 F 57 12 119/50 96
11/08/23 05:45 11/08/23 03:00 11/08/23 03:00 11/08/23 03:00 11/08/23 03:00
I&O
11/07/23 11/08/23 11/09/23
06:59 06:59 06:59
Intake Total 1355 / 1355 2400 / 2400
Output Total 920 / 920
Balance 1355 / 1355 1480 / 1480
[2023-11-08 07:49] LABS: Glucose - Point of Care 165 mg/dl (70-99)
[2023-11-08] MEDS: PROTONIX 40 MG PO (07:49)
[2023-11-08] MEDS: DETROL LA 4 MG PO (07:49)
[2023-11-08] MEDS: COREG 12.5 MG PO ×2 (07:49→19:49)
[2023-11-08] MEDS: CRESTOR 40 MG PO (07:49)
[2023-11-08] MEDS: HEPARIN 5000 UNITS SC ×2 (07:50→19:50)
[2023-11-08] MEDS: THERAGRAN 1 TABLET PO (07:50)
[2023-11-08] MEDS: FEOSOL 325 MG PO (07:50)
[2023-11-08] MEDS: LEXAPRO 10 MG PO (07:50)
[2023-11-08 07:57] LABS: Hematocrit 29.7 % (39.0-52.0); Hemoglobin 9.8 g/dL (13.0-18.0); Mean Corpuscular Hgb 26.7 pg (27.0-31.0); Mean Corpuscular Volume 80.9 fL (80.0-94.0); Mean Platelet Volume 9.6 fL (7.4-10.4); Platelet Count 242 10^3/uL (130-400); Red Blood Cell Count 3.67 10^6/uL (4.70-6.10); Red Cell Dist. Width 14.5 % (11.5-14.5); White Blood Cell Count 10.7 10^3/uL (4.8-10.8)
[2023-11-08 08:07] VITALS: BP 142/74
[2023-11-08] MEDS: NOVOLOG FLEXPEN-LOW RESISTANCE 1 UNITS SC (08:29)
[2023-11-08 09:06] LABS: Blood Urea Nitrogen 16 mg/dl (9-20); Calcium 9.1 mg/dl (8.4-10.2); Carbon Dioxide 30 mmol/L (22-30); Chloride 101 mmol/L (98-107); Estimated Creatinine Clearance 52 ml/min; Glucose 145 mg/dl (70-99); Magnesium 1.9 mg/dl (1.6-2.3); Phosphorus 2.8 mg/dl (2.5-4.5); Potassium 3.7 mmol/L (3.5-5.1); Sodium 135 mmol/L (135-145); eGFR > 60.00
[2023-11-08 11:08] VITALS: BP 122/56
--- NOTE | 2023-11-08 11:17 | PHA.VAN.FU ---
Vancomycin Assessment / Plan
- Assessment
Renal Function: Stable
WBC's are: WNL
In the past 24 hrs, patient has been: Afebrile
- Dosing Plan
Continue: Vancomycin 1000 mg q24h ( over 1.5 h)
- Monitoring Plan
Peak Level: 11/09/23 0900 ( after 4th total dose)
Trough Level: 11/10/23 0530
- Follow Up
Pharmacy will continue to follow.
Vancomycin Follow UP
- -
Patient Age: 73
Patient Sex: Male
Vancomycin Day #: 3
Indication: Bacteremia
Requesting Provider: Dr. Windy Robb
Pertinent Antimicrobial Allergies:
Vancomycin-itching, penicilin-unknown reaction as child, cephalosporins-cross reactivity w/pcn, unknown reaction
Height / Weight:
Height 5 ft 7 in
Actual Weight 61.961 kg
IBW in k.1
Pertinent Past Medical History: DM,AAA repair w/endograft, PPM/ICD, dental work 2 mos ago, recent COVID
- Vital Signs / Lab Results
Temp Pulse Resp BP Pulse Ox
97.8 F 65 17 122/56 96
11/08/23 11:08 11/08/23 11:08 11/08/23 11:08 11/08/23 11:08 11/08/23 11:08
Lab Results - Hematology
11/06/23 11/07/23 11/08/23
06:21 08:44 07:29
WBC 12.6 H 10.9 H 10.7
Lab Results - Chemistry
11/06/23 11/07/23 11/08/23
06:21 08:44 07:29
BUN 17 16 16
Creatinine 1.0 1.0 1.1
Estimated Creat Clear 57 57 52
Microbiology Results
11/04/23 23:48 Blood Culture - Preliminary
Blood/Venous Coagulase neg. staphylococcus
Gram Stain - Final
11/05/23 16:26 Blood Culture - Preliminary
Blood/Venous Coagulase neg. staphylococcus
Gram Stain - Preliminary
11/04/23 23:48 Blood Culture - Preliminary
Blood/Venous Coagulase neg. staphylococcus
Gram Stain - Final
11/07/23 08:44 Blood Culture - Preliminary
Blood/Venous No Growth in 24 hours- Final report to follow
11/06/23 11:22 Blood Culture - Preliminary
Blood/Venous No Growth in 24 hours- Final report to follow
11/05/23 23:53 MRSA Screen - Final
Nose No Methicillin Resistant Staphylococcus aureus isolated.
11/05/23 13:34 Urine Culture - Final
Urine No Significant Growth
[2023-11-08 11:31] LABS: Glucose - Point of Care 131 mg/dl (70-99)
[2023-11-08] MEDS: NOVOLOG FLEXPEN-LOW RESISTANCE SC ×2 (11:36→16:38)
[2023-11-08] MEDS: LIDOCAINE 4% PATCH 1 PATCH TOPICAL (13:11)
[2023-11-08 15:16] VITALS: BP 150/67
[2023-11-08 16:32] LABS: Glucose - Point of Care 146 mg/dl (70-99)
[2023-11-08] MEDS: ROXICODONE 5 MG PO (17:13)
[2023-11-08] MEDS: ASPIR LOW (ENTERIC COATED) 81 MG PO (17:13)
--- NOTE | 2023-11-08 18:14 | PTCARENOTE ---
Pt continues with R sided pain. MD aware. PRN Oxy ordered and administered with some effectiveness in reducing pain. Renal and bladder US ordered. Call rodriguez within reach.
[2023-11-08 19:00] VITALS: BP 133/61
[2023-11-08] MEDS: TYLENOL 1000 MG PO (19:50)
[2023-11-08] MEDS: FLOMAX 0.4 MG PO (21:13)
[2023-11-08 21:23] LABS: Glucose - Point of Care 224 mg/dl (70-99)
[2023-11-08 23:17] VITALS: BP 104/56
[2023-11-09] MEDS: ROXICODONE 5 MG PO ×2 (02:55→12:51)
[2023-11-09 03:38] VITALS: BP 153/67
[2023-11-09 05:51] VITALS: BMI 21.8
[2023-11-09] MEDS: VANCOCIN 200 IV (06:18)
[2023-11-09] MEDS: SYNTHROID 50 MCG PO (06:19)
[2023-11-09 07:00] VITALS: BP 144/79
[2023-11-09] MEDS: NOVOLOG FLEXPEN-LOW RESISTANCE 1 UNITS SC (07:30)
[2023-11-09 07:31] LABS: Glucose - Point of Care 156 mg/dl (70-99)
[2023-11-09] MEDS: PROTONIX 40 MG PO (09:35)
[2023-11-09] MEDS: LEXAPRO 10 MG PO (09:35)
[2023-11-09] MEDS: COREG 12.5 MG PO ×2 (09:35→20:23)
[2023-11-09] MEDS: THERAGRAN 1 TABLET PO (09:35)
[2023-11-09] MEDS: DETROL LA 4 MG PO (09:35)
[2023-11-09] MEDS: HEPARIN 5000 UNITS SC ×2 (09:36→20:22)
[2023-11-09] MEDS: LIDOCAINE 4% PATCH 1 PATCH TOPICAL (09:36)
[2023-11-09] MEDS: CRESTOR 40 MG PO (09:36)
[2023-11-09] MEDS: FEOSOL 325 MG PO (09:36)
--- NOTE | 2023-11-09 09:46 | W.PN.CARDCBS ---
Addendum entered and electronically signed by Fausto Kowalski DO 11/09/23 11:07:
I saw and examined the patient.
The Cutting Table Operator's note was reviewed and I agree with the note.
Comment:
Plan:
Cont IV abx as per ID.
POLLY with focal thickening of RV lead can not exclude endocarditis per report and review. Will ask ID about length of outpt abx and repeat imaging in follow up.
BC remain negative.
HR and bp stable
Will arrange outpt cardiac follow up
Original Note:
Today's Communication / Plan
-
POLLY as noted below
Continue IV antibiotics per ID
Repeat labs pending. Keep K greater than 4, mag greater than 2, replete if needed
Impression / Plan
-
Supervisor Sanding: Dr. Prabha Avery
Impression:
Presented 11/04/2023 with fevers, AMS
Bacteremia with GPC cluster, staph epidermidis bacteremia
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
CAD
s/p RCA PCI 2003
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
Ischemic CM, w/ recovered EF
s/p BiV ICD
Chronic HFimpEF
HTN
HLD
AAA s/p EVAR 12/2021
COPD
DM2
Hypothyroidism
BPH
POLLY 11/09/2023, 'EF 55 to 60% with no significant valvular abnormalities. ICD leads are noted in RA and RV. Some focal thickening of RV lead significance unclear. Cannot exclude endocarditis.' No pericardial effusion
Echo 11/06/2023: EF 60-65%, stage I diastolic dysfunction, trace TR, estimated PAP 34 mmHg
Plan:
-Presented with fever and altered mental status. Now improved
-Blood cultures + w/ staph epidermidis bacteremia. No clear source. Continue abx per ID with Vanco
-CT abdomen/pelvis 11/06/23 w/ aortic stent graft in place with luminal patency. Interval decrease in size of the solomon aortic aneurysm sac. No evidence of abnormal enhancement within the solomon aneurysm sac. No CT evidence to suggest superimposed
graft infection
-Echo 11/05 with no clear evidence of vegetation. POLLY 11/09/2023 with some focal thickening of RV lead significance unclear. No gross vegetation.
-28 beats of NSVT noted on telemetry. ICD in place. Will increase coreg to 12.5mg BID on 11/06/23. No further VT/arrhythmia noted
-V Paced on EKG.
-Repeat labs pending today. On 11/08/23 K+ 3.7, mag 1.9 Keep K > 4, Mag > 2. Replete if needed once labs resulted
-Continue aspirin 81mg daily w/ h/o CAD.
-Continue to follow on telemetry.
HPI: Meir is a 73 year old male with PMH of CAD w/ prior RCA stent, ischemic CM, ICD, chronic HFimpEF, HTN, HLD, AAA s/p repair, COPD, DM2, hypothyroidism, and BPH. He presented to the ER with fevers and confusion. He recently had COVID 19, testing
positive approximately 2 weeks ago. He was treated conservatively for this, however continued to have fevers persistently since that time. Over the past few days then developed confusion, prompting ER evaluation. He had head CT which was negative,
although due to fevers with elevated WBC and altered mental status, he was admitted for further workup and evaluation. Blood cultures returned positive for staphylococcus. No clear source identified. Transthoracic echo without clear evidence of
vegetation. Cardiology consulted for consideration of POLLY. He continues on antibiotics and with treatment his confusion has improved. He reports no symptoms at this time and states he is feeling well.
Progress Note - Supervisor Sanding
Subjective
Date of Service: November 09, 2023
Objective
Labs:
Labs
Hgb 9.8 g/dL (13.0-18.0) L 11/08/23 07:29
Hct 29.7 % (39.0-52.0) L 11/08/23 07:29
Plt Count 242 10^3/uL (130-400) 11/08/23 07:29
Sodium 135 mmol/L (135-145) 11/08/23 07:29
Potassium 3.7 mmol/L (3.5-5.1) 11/08/23 07:29
BUN 16 mg/dl (9-20) 11/08/23 07:29
Creatinine 1.1 mg/dL (0.7-1.3) 11/08/23 07:29
Glucose 145 mg/dl (70-99) H 11/08/23 07:29
Vital Signs and I&O:
Vital Signs
Temp Pulse Resp BP Pulse Ox
97.9 F 66 16 144/79 94
11/09/23 03:38 11/09/23 07:00 11/09/23 07:00 11/09/23 07:00 11/09/23 07:30
Vital Signs
Temp Pulse Resp BP Pulse Ox
97.9 F 66 16 144/79 94
11/09/23 03:38 11/09/23 07:00 11/09/23 07:00 11/09/23 07:00 11/09/23 07:30
Intake & Output
11/07/23 11/08/23 11/09/23 11/10/23
06:59 06:59 06:59 06:59
Intake Total 1355 / 1355 2400 / 2400 1290 / 1290
Output Total 920 / 920 500 / 500
Balance 1355 / 1355 1480 / 1480 790 / 790
Physical Exam
Physical Exam
GEN: No distress, awake, Ox3
HEENT: supple, anicteric, mmm
LUNGS: faint expiratory bilateral wheezes otherwise CTA, no rales
CV: Reg, S1/S2, no murmur, rub or gallop
ABD: soft, BS+, NT/ND
EXT: No edema, clubbing or cyanosis
NEURO: Gross non-focal
SKIN: No rash, warm, dry, pink
[2023-11-09 10:18] LABS: Hematocrit 28.9 % (39.0-52.0); Hemoglobin 9.6 g/dL (13.0-18.0); Mean Corp Hgb Conc. 33.2 g/dL (33.0-37.0); Mean Corpuscular Hgb 26.3 pg (27.0-31.0); Mean Corpuscular Volume 79.2 fL (80.0-94.0); Mean Platelet Volume 9.4 fL (7.4-10.4); Platelet Count 252 10^3/uL (130-400); Red Blood Cell Count 3.65 10^6/uL (4.70-6.10); Red Cell Dist. Width 14.7 % (11.5-14.5); White Blood Cell Count 9.9 10^3/uL (4.8-10.8)
[2023-11-09 10:40] LABS: Blood Urea Nitrogen 18 mg/dl (9-20); Calcium 9.3 mg/dl (8.4-10.2); Carbon Dioxide 32 mmol/L (22-30); Chloride 100 mmol/L (98-107); Estimated Creatinine Clearance 53 ml/min; Glucose 113 mg/dl (70-99); Magnesium 1.7 mg/dl (1.6-2.3); Phosphorus 2.9 mg/dl (2.5-4.5); Potassium 3.9 mmol/L (3.5-5.1); Sodium 136 mmol/L (135-145); eGFR > 60.00
[2023-11-09 10:49] LABS: Vancomycin Peak 20.7 ug/ml (18-26)
--- NOTE | 2023-11-09 11:08 | PHA.VAN.FU ---
Vancomycin Assessment / Plan
- Assessment
Renal Function: Stable (SCR stable but increased from admission of 0.8)
WBC's are: WNL
- Dosing Plan
Continue: Vanc 1000mg Q24H infused over 90 mins
- Monitoring Plan
Peak Level: peak 20.7 - will assess with trough in AM
Trough Level: 11/09 05:30
Monitoring Comments: levels drawn after 3rd maintenance dose
- Follow Up
Pharmacy will continue to follow.
Vancomycin Follow UP
- -
Patient Age: 73
Patient Sex: Male
Vancomycin Day #: 4
Indication: Bacteremia
Requesting Provider: Dr. Windy Robb
Pertinent Antimicrobial Allergies:
Vancomycin - itching
Penicillin G - unknown reaction as child (1952)
cephalosporins - cross reactivity w/pcn, unknown reaction
Height / Weight:
Height 5 ft 7 in
Actual Weight 63.095 kg
IBW in k.1
Pertinent Past Medical History: DM 2
- Vital Signs / Lab Results
Temp Pulse Resp BP Pulse Ox
97.9 F 66 16 144/79 94
11/09/23 03:38 11/09/23 07:00 11/09/23 07:00 11/09/23 07:00 11/09/23 07:30
Lab Results - Hematology
11/07/23 11/08/23 11/09/23
08:44 07:29 09:50
WBC 10.9 H 10.7 9.9
Lab Results - Chemistry
11/07/23 11/08/23 11/09/23
08:44 07:29 09:50
BUN 16 16 18
Creatinine 1.0 1.1 1.1
Estimated Creat Clear 57 52 53
Microbiology Results
11/07/23 08:44 Blood Culture - Preliminary
Blood/Venous No Growth in 48 hours- Final report to follow
11/05/23 16:26 Blood Culture - Final
Blood/Venous Staphylococcus epidermidis
Gram Stain - Final
11/04/23 23:48 Blood Culture - Final
Blood/Venous Staphylococcus epidermidis
Gram Stain - Final
11/04/23 23:48 Blood Culture - Final
Blood/Venous Staphylococcus epidermidis
Gram Stain - Final
11/06/23 11:22 Blood Culture - Preliminary
Blood/Venous No Growth in 48 hours- Final report to follow
11/05/23 23:53 MRSA Screen - Final
Nose No Methicillin Resistant Staphylococcus aureus isolated.
Therapeutic Drug Monitoring
Vancomycin Peak 20.7 ug/ml (18-) 11/09/23 09:50
[2023-11-09 11:30] VITALS: BP 149/75
--- NOTE | 2023-11-09 12:39 | W.PN.HOSP.TC ---
Today's Communication/Plan
-
continue the IV Abx and follow ID/Cards recs
continue pain control for R flank pain; await Chest US and renal US
Assessment / Plan
Assessment / Plan
Assessment:
Metabolic encephalopathy
- multifactorial from acute infections (bacteremia, possible PNA)
- monitor mentation
- CT head negative x 2
staph epi bacteremia
- continue Vancomycin; follow repeat cultures as per ID
- POLLY with RV lead thickening, may influence duration of IV Abx
- no evidence of aortic graft infection on CT
Possible PNA with R flank pain
- CT without obstructive uropathy, possible PNA
- await Chest US, await Bladder/renal US
- pain control as ordered
Recent COVID infection 2 weeks ago
Anxiety/Depression
- Outpatient follow-up with psychiatry
- Lexapro continues
Type 2 diabetes
- Hold metformin, Januvia
- Hold glipizide
- Insulin sliding scale
- A1c: 6.0%
Coronary artery disease history of cardiac stents with ICD
- continue aspirin
Chronic HFpEF
- continue Coreg
Essential hypertension
BPH
- continue tamsulosin
COPD
- continue inhalers
Hyperlipidemia
- continue statin
GERD
- continue famotidine, Protonix
Hypothyroidism
- continue levothyroxine
History of left-sided Levy's palsy
DVT ppx: SC Heparin
Code: Full
Anticipated Discharge: > 48 hours
Subjective/Interval History
-
Date of Service: November 09, 2023
s/p POLLY, no over IE seen but focal RV lead thickening
feels ok, just tired post POLLY
Objective Data
-
Labs:
Laboratory Results
11/09/23
09:50
WBC 9.9
Hgb 9.6 L
Hct 28.9 L
Plt Count 252
Sodium 136
Potassium 3.9
Chloride 100
Carbon Dioxide 32 H
BUN 18
Creatinine 1.1
Glucose 113 H
Calcium 9.3
Vital Signs:
Vital Signs
Temp Pulse Resp BP Pulse Ox
97.9 F 66 16 144/79 94
11/09/23 03:38 11/09/23 07:00 11/09/23 07:00 11/09/23 07:00 11/09/23 11:09
I&O
11/08/23 11/09/23 11/10/23
06:59 06:59 06:59
Intake Total 2400 / 2400 1290 / 1290
Output Total 920 / 920 500 / 500
Balance 1480 / 1480 790 / 790
Physical Exam
-
General: No Apparent Distress
HEENT: Normocephalic and Atraumatic
Respiratory: Negative Wheezes
Cardiac: Regular Rhythm and S1/S2
GI: Soft
Genito-urinary: No Costovertebral Tender
Musculoskeletal: No Edema
Neuro: AO x 3
Psych: Calm
Data Reviewed
-
Total Time Spent with Patient (in minutes): 42
Labs: Labs Reviewed by me
[2023-11-09 12:56] LABS: Glucose - Point of Care 100 mg/dl (70-99)
[2023-11-09] MEDS: TYLENOL 1000 MG PO (13:00)
[2023-11-09] MEDS: NOVOLOG FLEXPEN-LOW RESISTANCE SC ×2 (13:18→17:31)
--- NOTE | 2023-11-09 13:56 | W.PN.ID1 ---
Date of Service
Date of Service: November 09, 2023
Today's Communication
Continue abx.
Assessment / Plan
# Staph epi. bacteremia (3 sets over 2 days)
# Fever x 2 weeks
# Leukocytosis
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 Not up to date with booster. COVID negative here
# Mental status change during febrile episodes
# hx PPM/ICD placement; dental work 2 months ago
# hx AAA endograft repair
- TTE no vege.
- Repeat blood cultures daily until clear (neg x 72h)
- POLLY with some focal thickening of RV lead
- CTA abd/pelvis without CT evidence to suggest superimposed graft infection.
- continue Vancomycin
- Follow temps/wbc
#Additional Past Medical History:
Diabetes mellitus
Hypertension
CAD status post stents
Ischemic cardiomyopathy status post ICD/ppm placement
BPH
COPD
Lung nodules
Hypothyroidism
Anxiety
Left side Levy's palsy
Dyslipidemia
AAA endograft repair
Hernia repair
Nephrolithiasis status post lithotripsy
Right and left rotator cuff surgery
Chief Complaint
-: Fever and Bacteremia
Subjective / Review of Systems
Patient seen and examined. Just back from ultrasound. Nurse noting fever.
Review of Systems: Fever
Vital Signs / Physical Exam
Vital Signs
Vital Signs
Temp Pulse Resp BP Pulse Ox
103.6 F H 68 16 149/75 93
11/09/23 13:54 11/09/23 11:30 11/09/23 11:30 11/09/23 11:30 11/09/23 11:30
Physical Exam
Constitutional: Comfortable, Chronically Ill and Non-toxic
Eyes: No Conjunctival Hemorrhage and Sclera Anicteric
Cardiovascular: S1/S2; Negative S3/S4 or Murmur
Pulmonary: Clear and Non Labored; Negative Rales or Rhonchi
Gastrointestinal: Soft, Non Tender and Non Distended
Extremities: Negative Splinter Hemorrhage or [place] Lesions
Musculoskeletal: Negative Joint Swelling or Joint Effusion
Neurological: Other (Responsive to voice and touch.)
Objective Data
Lab Data
Lab Results
11/09/23 09:50
11/09/23 09:50
Estimated Creat Clear 53 ml/min 11/09/23 09:50
Total Bilirubin 1.1 mg/dl (0.2-1.3) 11/05/23 04:53
AST 38 U/L (17-59) 11/05/23 04:53
ALT 19 U/L (0-50) 11/05/23 04:53
Alkaline Phosphatase 41 U/L (38-126) 11/05/23 04:53
Most recent labs reviewed.
Micro Results:
11/06/23 11:22 Blood Culture - Preliminary
Blood/Venous No Growth in 72 hours- Final report to follow
11/07/23 08:44 Blood Culture - Preliminary
Blood/Venous No Growth in 48 hours- Final report to follow
11/05/23 16:26 Blood Culture - Final
Blood/Venous Staphylococcus epidermidis
Gram Stain - Final
11/04/23 23:48 Blood Culture - Final
Blood/Venous Staphylococcus epidermidis
Gram Stain - Final
11/04/23 23:48 Blood Culture - Final
Blood/Venous Staphylococcus epidermidis
Gram Stain - Final
11/05/23 23:53 MRSA Screen - Final
Nose No Methicillin Resistant Staphylococcus aureus isolated.
11/05/23 13:34 Urine Culture - Final
Urine No Significant Growth
[2023-11-09 15:00] VITALS: BP 117/58
--- NOTE | 2023-11-09 15:21 | CM ---
Received consult for VN. Attempted to meet with patient to determine if he is agreeable and if so, what agency. He was on the phone, however it was unclear if he was talking to someone. He did not appear to be able to engage in conversation.
Called patient's spouse however there was no answer.
Provided update to Zora Ortiz that there is a VN consult in the event that patient wants [place].
Plan: Case management will continue to follow and assist with discharge planning. Home with VN services.
[2023-11-09 17:02] LABS: Glucose - Point of Care 104 mg/dl (70-99)
--- NOTE | 2023-11-09 17:45 | PTCARENOTE ---
Pt observed with rigors. Pt stated he was 'freezing.' Axillary temp 100.4F; Rectal temp 103.6F. PRN Tylenol administered. Follow up temp 98.3F oral.
[2023-11-09] MEDS: ASPIR LOW (ENTERIC COATED) 81 MG PO (18:06)
[2023-11-09 19:00] VITALS: BP 123/58
[2023-11-09] MEDS: MOTRIN 400 MG PO (20:21)
[2023-11-09] MEDS: FLOMAX 0.4 MG PO (20:22)
[2023-11-09] MEDS: ProAIR HFA INHALER 2 PUFF INH (21:37)
[2023-11-09 21:52] LABS: Glucose - Point of Care 154 mg/dl (70-99)
[2023-11-09 23:00] VITALS: BP 122/64
[2023-11-10] VITALS (7 sets, daily range): BP systolic 121–151; BP diastolic 60–70; BMI 21.7
[2023-11-10 06:13] LABS: Hematocrit 26.9 % (39.0-52.0); Hemoglobin 8.9 g/dL (13.0-18.0); Mean Corp Hgb Conc. 33.1 g/dL (33.0-37.0); Mean Corpuscular Hgb 26.2 pg (27.0-31.0); Mean Corpuscular Volume 79.1 fL (80.0-94.0); Mean Platelet Volume 9.3 fL (7.4-10.4); Platelet Count 232 10^3/uL (130-400); Red Cell Dist. Width 14.7 % (11.5-14.5); White Blood Cell Count 9.9 10^3/uL (4.8-10.8)
[2023-11-10 06:23] LABS: Vancomycin Trough 10.6 ug/ml (5-20)
[2023-11-10] MEDS: VANCOCIN 200 IV (06:24)
[2023-11-10] MEDS: SYNTHROID 50 MCG PO (06:25)
[2023-11-10] MEDS: MOTRIN 400 MG PO ×2 (06:29→17:31)
[2023-11-10 06:39] LABS: Blood Urea Nitrogen 20 mg/dl (9-20); Calcium 9.1 mg/dl (8.4-10.2); Carbon Dioxide 30 mmol/L (22-30); Chloride 102 mmol/L (98-107); Estimated Creatinine Clearance 58 ml/min; Glucose 107 mg/dl (70-99); Potassium 3.7 mmol/L (3.5-5.1); Sodium 136 mmol/L (135-145); eGFR > 60.00
[2023-11-10 08:12] LABS: Glucose - Point of Care 184 mg/dl (70-99)
[2023-11-10] MEDS: NOVOLOG FLEXPEN-LOW RESISTANCE 1 UNITS SC (08:13)
[2023-11-10] MEDS: FEOSOL 325 MG PO (08:14)
[2023-11-10] MEDS: LIDOCAINE 4% PATCH 1 PATCH TOPICAL (08:14)
[2023-11-10] MEDS: DETROL LA 4 MG PO (08:14)
[2023-11-10] MEDS: CRESTOR 40 MG PO (08:14)
[2023-11-10] MEDS: PROTONIX 40 MG PO (08:14)
[2023-11-10] MEDS: LEXAPRO 10 MG PO (08:15)
[2023-11-10] MEDS: COREG 12.5 MG PO ×2 (08:15→20:55)
[2023-11-10] MEDS: THERAGRAN 1 TABLET PO (08:15)
[2023-11-10] MEDS: HEPARIN 5000 UNITS SC (08:15)
--- NOTE | 2023-11-10 09:14 | PHA.VAN.FU ---
Vancomycin Assessment / Plan
- Assessment
Renal Function: Stable
Vancomycin 1000mg Q24H over 90 mins provided the following patient-specific PK prior to being discontinued today:
- Assessment - Therapeutic Drug Monitoring
Extrapolated Cmax (mcg/mL): 22.2
Peak level was drawn: Appropriately (peak drawn ~2H after end of previous infusion)
Extrapolated Cmin (mcg/mL): 10.4
Trough Drawn: Appropriately
Levels were drawn: At steady state (levels drawn after 3rd maintenance dose)
Calculated AUC (mcg*h/mL): 375
Calculated ke: 0.0335
Calculated half life (H): 20.7
Calculated Vd (L): 79.6 (~1.3 L/kg)
Calculated Vanc CL (ml/min): 44.5
Vanc 1250mg Q24H infused over 90 mins predicts AUC 480, Cmax 28.4 and Cmin 13.4 based on patient-specific PK
- Follow Up
Vancomycin discontinued
Vancomycin Follow UP
- -
Patient Age: 73
Patient Sex: Male
Vancomycin Day #: 5
Indication: Bacteremia
Requesting Provider: Dr. Windy Robb
Pertinent Antimicrobial Allergies:
Vancomycin - itching
Penicillin G - unknown reaction as child (1952)
cephalosporins - cross reactivity w/pcn, unknown reaction
Height / Weight:
Height 5 ft 7 in
Actual Weight 62.737 kg
IBW in k.1
Pertinent Past Medical History: DM 2
- Vital Signs / Lab Results
Temp Pulse Resp BP Pulse Ox
97.5 F 63 16 138/66 94
11/10/23 07:24 11/10/23 08:15 11/10/23 07:24 11/10/23 08:15 11/10/23 07:24
Lab Results - Hematology
11/07/23 11/08/23 11/09/23
08:44 07:29 09:50
WBC 10.9 H 10.7 9.9
11/10/23
05:48
WBC 9.9
Lab Results - Chemistry
11/07/23 11/08/23 11/09/23
08:44 07: 09:50
BUN 16 16 18
Creatinine 1.0 1.1 1.1
Estimated Creat Clear 57 52 53
11/10/23
05:48
BUN 20
Creatinine 1.0
Estimated Creat Clear 58
Microbiology Results
11/07/23 08:44 Blood Culture - Preliminary
Blood/Venous No Growth in 72 hours- Final report to follow
11/06/23 11:22 Blood Culture - Preliminary
Blood/Venous No Growth in 72 hours- Final report to follow
11/05/23 16:26 Blood Culture - Final
Blood/Venous Staphylococcus epidermidis
Gram Stain - Final
11/04/23 23:48 Blood Culture - Final
Blood/Venous Staphylococcus epidermidis
Gram Stain - Final
11/04/23 23:48 Blood Culture - Final
Blood/Venous Staphylococcus epidermidis
Gram Stain - Final
Therapeutic Drug Monitoring
Vancomycin Peak 20.7 ug/ml (18-26) 11/09/23 09:50
Vancomycin Trough 10.6 ug/ml (5-20) 11/10/23 05:48
--- NOTE | 2023-11-10 09:15 | W.PN.ID1 ---
Date of Service
Date of Service: November 10, 2023
Today's Communication
See below.
Assessment / Plan
# Staph epi. bacteremia (3 sets over 2 days)
# Fever x 2 weeks, resolving
# Leukocytosis - resolved
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 Not up to date with booster. COVID negative here
# hx PPM/ICD placement; dental work 2 months ago
# hx AAA endograft repair
- Repeat blood cultures x 2 neg x 72h
- CTA abd/pelvis without CT evidence to suggest superimposed graft infection.
- POLLY with some focal thickening of RV lead, cannot rule out endocarditis
- Fever yesterday afternoon.
- Replace Vancomycin with cefazolin 2gIV q8hr x 6 weeks through 12/22/23.
Discussed 2 options after 6 weeks IV abx: 1) observe off abx with surveillance bcx's vs. 2) lifelong suppressive po abx
Original PPM/ICD placed about 20 years ago, per pt. Therefore, old wires probably more difficult to extract.
Shared decision making is 6 weeks IV abx followed by lifelong suppressive abx. Discussed risks of usp abx including C. diff and development of abx resistance.
- Follow temps.
- Infusion sheet submitted to case management
#Additional Past Medical History:
Diabetes mellitus
Hypertension
CAD status post stents
Ischemic cardiomyopathy status post ICD/ppm placement
BPH
COPD
Lung nodules
Hypothyroidism
Anxiety
Left side Levy's palsy
Dyslipidemia
AAA endograft repair
Hernia repair
Nephrolithiasis status post lithotripsy
Right and left rotator cuff surgery
Chief Complaint
-: Fever and Bacteremia
Subjective / Review of Systems
Feels well. Did not notice the fever yesterday afternoon
Vital Signs / Physical Exam
Vital Signs
Vital Signs
Temp Pulse Resp BP Pulse Ox
97.5 F 63 16 138/66 94
11/10/23 07:24 11/10/23 08:15 11/10/23 07:24 11/10/23 08:15 11/10/23 07:24
Selected Entries
11/09/23
13:54
Temp max 103.6 F H (rectal)
Physical Exam
Constitutional: No Acute Distress
Cardiovascular: Regular Rate, S1/S2 and Other (LCW PPM/ICD no erythema/warmth)
Pulmonary: Clear
Gastrointestinal: Soft and Non Tender
Genito-Urinary: Negative CVA Tenderness
Extremities: Negative Edema, Splinter Hemorrhage or Janeway Lesions
Musculoskeletal: Negative Spinal Tenderness
Neurological: AO x 3
Objective Data
Lab Data
Lab Results
11/10/23 05:48
11/10/23 05:48
Estimated Creat Clear 58 ml/min 11/10/23 05:48
Total Bilirubin 1.1 mg/dl (0.2-1.3) 11/05/23 04:53
AST 38 U/L (17-59) 11/05/23 04:53
ALT 19 U/L (0-50) 11/05/23 04:53
Alkaline Phosphatase 41 U/L (38-126) 11/05/23 04:53
Most recent labs reviewed.
Micro Results:
11/07/23 08:44 Blood Culture - Preliminary
Blood/Venous No Growth in 72 hours- Final report to follow
11/06/23 11:22 Blood Culture - Preliminary
Blood/Venous No Growth in 72 hours- Final report to follow
11/05/23 16:26 Blood Culture - Final
Blood/Venous Staphylococcus epidermidis
Gram Stain - Final
11/04/23 23:48 Blood Culture - Final
Blood/Venous Staphylococcus epidermidis
Gram Stain - Final
11/04/23 23:48 Blood Culture - Final
Blood/Venous Staphylococcus epidermidis
Gram Stain - Final
11/05/23 23:53 MRSA Screen - Final
Nose No Methicillin Resistant Staphylococcus aureus isolated.
11/05/23 13:34 Urine Culture - Final
Urine No Significant Growth
--- NOTE | 2023-11-10 09:40 | W.PN.CARDCBS ---
Today's Communication / Plan
-
Cont IV abx as per ID.
POLLY with focal thickening of RV lead can not exclude endocarditis per report and review.
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
-CT abdomen/pelvis 11/06/23 w/ aortic stent graft in place with luminal patency. Interval decrease in size of the [place] aortic aneurysm sac. No evidence of abnormal enhancement within the [place] aneurysm sac. No CT evidence to suggest
superimposed graft infection
BC remain negative.
Coreg increased Juy 26 for NSVT without recurrence.
HR and bp stable. V pacing.
Will arrange outpt cardiac follow up.
Please recall if needed.
Impression / Plan
-
Watch Inspector: Dr. Prabha Avery
Impression:
Presented 11/04/2023 with fevers, AMS
Bacteremia with GPC cluster, staph epidermidis bacteremia
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
CAD
s/p RCA PCI 2003
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
Ischemic CM, w/ recovered EF
s/p BiV ICD
Chronic HFimpEF
HTN
HLD
AAA s/p EVAR 12/2021
COPD
DM2
Hypothyroidism
BPH
POLLY 11/09/2023, 'EF 55 to 60% with no significant valvular abnormalities. ICD leads are noted in RA and RV. Some focal thickening of RV lead significance unclear. Cannot exclude endocarditis.' No pericardial effusion
Echo 11/06/2023: EF 60-65%, stage I diastolic dysfunction, trace TR, estimated PAP 34 mmHg
Plan:
Cont IV abx as per ID.
POLLY with focal thickening of RV lead can not exclude endocarditis per report and review.
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
-CT abdomen/pelvis 11/06/23 w/ aortic stent graft in place with luminal patency. Interval decrease in size of the [place] aortic aneurysm sac. No evidence of abnormal enhancement within the [place] aneurysm sac. No CT evidence to suggest
superimposed graft infection
BC remain negative.
Coreg increased Juy 26 for NSVT without recurrence.
HR and bp stable. V pacing.
Will arrange outpt cardiac follow up.
Please recall if needed.
HPI: Meir is a 73 year old male with PMH of CAD w/ prior RCA stent, ischemic CM, ICD, chronic HFimpEF, HTN, HLD, AAA s/p repair, COPD, DM2, hypothyroidism, and BPH. He presented to the ER with fevers and confusion. He recently had COVID 19, testing
positive approximately 2 weeks ago. He was treated conservatively for this, however continued to have fevers persistently since that time. Over the past few days then developed confusion, prompting ER evaluation. He had head CT which was negative,
although due to fevers with elevated WBC and altered mental status, he was admitted for further workup and evaluation. Blood cultures returned positive for staphylococcus. No clear source identified. Transthoracic echo without clear evidence of
vegetation. Cardiology consulted for consideration of POLLY. He continues on antibiotics and with treatment his confusion has improved. He reports no symptoms at this time and states he is feeling well.
Progress Note - Watch Inspector
Subjective
Date of Service: November 10, 2023
Pt seen and examined. No complaints. No chest pain or shortness of breath.
Objective
Labs:
11/10/23 05:48
11/10/23 05:48
Labs
Hgb 8.9 g/dL (13.0-18.0) L 11/10/23 05:48
Hct 26.9 % (39.0-52.0) L 11/10/23 05:48
Plt Count 232 10^3/uL (130-400) 11/10/23 05:48
Sodium 136 mmol/L (135-145) 11/10/23 05:48
Potassium 3.7 mmol/L (3.5-5.1) 11/10/23 05:48
BUN 20 mg/dl (9-20) 11/10/23 05:48
Creatinine 1.0 mg/dL (0.7-1.3) 11/10/23 05:48
Glucose 107 mg/dl (70-99) H 11/10/23 05:48
Vital Signs and I&O:
Vital Signs
Temp Pulse Resp BP Pulse Ox
97.5 F 63 16 138/66 94
11/10/23 07:24 11/10/23 08:15 11/10/23 07:24 11/10/23 08:15 11/10/23 07:24
Vital Signs
Temp Pulse Resp BP Pulse Ox
97.5 F 63 16 138/66 94
11/10/23 07:24 11/10/23 08:15 11/10/23 07:24 11/10/23 08:15 11/10/23 07:24
Intake & Output
11/08/23 11/09/23 11/10/23 11/11/23
06:59 06:59 06:59 06:59
Intake Total 2400 / 2400 1290 / 1290 750 / 750
Output Total 920 / 920 500 / 500 100 / 100
Balance 1480 / 1480 790 / 790 650 / 650
Physical Exam
Physical Exam
General: No acute distress, AAOX3
Neck: Negative JVD
Heart: Regular, Negative S3 positive S1/S2, Negative S4, No murmur
Lungs: CTA b/l, negative wheezes/rales/rhonchi
Abd: Positive BS, NT/ND, neg rebound/rigidity/guarding
Ext: Negative cyanosis/clubbing/edema
Neuro: nonfocal
--- NOTE | 2023-11-10 10:43 | W.PN.HOSP.TC ---
Today's Communication/Plan
-
home VN and IV Abx setup
Assessment / Plan
Assessment / Plan
Assessment:
Metabolic encephalopathy
- multifactorial from acute infections (bacteremia, possible PNA)
- monitor mentation
- CT head negative x 2
staph epi bacteremia
- continue cefazolin 2gIV q8hr x 6 weeks through 12/22/23. Eventually may need PO suppressive Abx vs observation afterwards
- POLLY with RV lead thickening. Repeat POLLY in 6 weeks planned outpatient. Given device is ~20 years old, lead extraction likely more difficult.
- no evidence of aortic graft infection on CT
Possible PNA with R flank pain
- CT without obstructive uropathy, possible PNA
- chest US with small effusion, not amenable to tap
- pain control as ordered
Recent COVID infection 2 weeks ago
Anxiety/Depression
- Outpatient follow-up with psychiatry
- Lexapro continues
Type 2 diabetes
- Hold metformin, Januvia
- Hold glipizide
- Insulin sliding scale
- A1c: 6.0%
Coronary artery disease history of cardiac stents with ICD
- continue aspirin
Chronic HFpEF
- continue Coreg
Essential hypertension
BPH
- continue tamsulosin
COPD
- continue inhalers
Hyperlipidemia
- continue statin
GERD
- continue famotidine, Protonix
Hypothyroidism
- continue levothyroxine
History of left-sided Levy's palsy
DVT ppx: SC Heparin
Code: Full
Anticipated Discharge: 24 - 48 hours
Subjective/Interval History
-
Date of Service: November 10, 2023
reports flank pain is improving
Objective Data
-
Labs:
Laboratory Results
11/10/23
05:48
WBC 9.9
Hgb 8.9 L
Hct 26.9 L
Plt Count 232
Sodium 136
Potassium 3.7
Chloride 102
Carbon Dioxide 30
BUN 20
Creatinine 1.0
Glucose 107 H
Calcium 9.1
Vital Signs:
Vital Signs
Temp Pulse Resp BP Pulse Ox
97.5 F 63 16 138/66 94
11/10/23 07:24 11/10/23 08:15 11/10/23 07:24 11/10/23 08:15 11/10/23 07:24
I&O
11/09/23 11/10/23 11/11/23
06:59 06:59 06:59
Intake Total 1290 / 1290 750 / 750
Output Total 500 / 500 100 / 100
Balance 790 / 790 650 / 650
Physical Exam
-
General: No Apparent Distress
HEENT: Normocephalic and Atraumatic
Respiratory: Negative Wheezes
Cardiac: Regular Rhythm and S1/S2
GI: Soft and Nontender
Genito-urinary: No Costovertebral Tender
Neuro: AO x 3
Psych: Calm
Data Reviewed
-
Total Time Spent with Patient (in minutes): 45
Labs: Labs Reviewed by me
[2023-11-10 11:26] LABS: Glucose - Point of Care 148 mg/dl (70-99)
[2023-11-10] MEDS: NOVOLOG FLEXPEN-LOW RESISTANCE SC ×2 (11:26→15:57)
--- NOTE | 2023-11-10 12:04 | CM ---
Addendum entered by Lynn Martel 11/10/23 15:53:
Weekly cost of abx at home $188
Cost provided to spouse- she is still considering options of home vs SNF
Original Note:
CM reviewed pt with Dr Neville and Dr Robb- will need IV abx through 12/22/23
Cefazolin 2g Q8H, script received and on chart
Bedside update to pt- deferred dc planning to spouse
Call with spouse to review need for IV abx- she was tearful throughout phone call
Noted limited financial resources and spouse works out of home maritime engineer
Private duty nursing for abx may not be financially feasible through [facility]
She notes concerned that with pt's forgetfulness, he will not be able to self administer while she is at work
Plan for referral to [facility] and SNFs to determine out of pocket costs and coverage
She will speak with family regarding availability to assist at home
SNF referrals sent via [facility]- no preference at this time
Referral faxed to [facility] and update to [facility], she will run coverage
Per [facility], unable to provide IV care due to insurance
Referral to be made to [facility] if plan for home on dc
Plan for picc placement
Of note, all dc planning through spouse
Discharge Disposition- home with VN and IV abx vs SNF
[2023-11-10] MEDS: ANCEF 10 IV ×2 (13:28→21:07)
[2023-11-10 15:52] LABS: Glucose - Point of Care 138 mg/dl (70-99)
[2023-11-10] MEDS: ASPIR LOW (ENTERIC COATED) 81 MG PO (17:26)
[2023-11-10] MEDS: ProAIR HFA INHALER 2 PUFF INH (17:35)
[2023-11-10] MEDS: FLOMAX 0.4 MG PO (20:55)
[2023-11-10] MEDS: ELIQUIS 10 MG PO (20:55)
[2023-11-10] MEDS: FLUSH (NSS) 2 FLUSH IV (21:07)
[2023-11-10] MEDS: TYLENOL 1000 MG PO (21:17)
[2023-11-11] VITALS (7 sets, daily range): BP systolic 118–170; BP diastolic 53–85; O2SAT 94; BMI 21.8
[2023-11-11 02:04] LABS: Glucose - Point of Care 160 mg/dl (70-99)
[2023-11-11] MEDS: ANCEF 10 IV ×3 (05:30→22:21)
[2023-11-11] MEDS: SYNTHROID 50 MCG PO (05:31)
[2023-11-11] MEDS: FLUSH (NSS) 2 FLUSH IV ×3 (05:31→22:24)
[2023-11-11 05:32] LABS: Hemoglobin 9.3 g/dL (13.0-18.0); Mean Corp Hgb Conc. 33.2 g/dL (33.0-37.0); Mean Corpuscular Hgb 26.6 pg (27.0-31.0); Mean Corpuscular Volume 80.2 fL (80.0-94.0); Mean Platelet Volume 9.3 fL (7.4-10.4); Platelet Count 229 10^3/uL (130-400); Red Blood Cell Count 3.49 10^6/uL (4.70-6.10); Red Cell Dist. Width 14.6 % (11.5-14.5); White Blood Cell Count 8.4 10^3/uL (4.8-10.8)
[2023-11-11 05:55] LABS: Blood Urea Nitrogen 18 mg/dl (9-20); Calcium 9.4 mg/dl (8.4-10.2); Carbon Dioxide 34 mmol/L (22-30); Chloride 103 mmol/L (98-107); Estimated Creatinine Clearance 58 ml/min; Glucose 110 mg/dl (70-99); Potassium 3.5 mmol/L (3.5-5.1); Sodium 138 mmol/L (135-145); eGFR > 60.00
[2023-11-11] MEDS: LEXAPRO 10 MG PO (07:48)
[2023-11-11 07:49] LABS: Glucose - Point of Care 144 mg/dl (70-99)
[2023-11-11] MEDS: FEOSOL 325 MG PO (07:49)
[2023-11-11] MEDS: CRESTOR 40 MG PO (07:49)
[2023-11-11] MEDS: PROTONIX 40 MG PO (07:49)
[2023-11-11] MEDS: COREG 12.5 MG PO ×2 (07:49→22:23)
[2023-11-11] MEDS: DETROL LA 4 MG PO (07:49)
[2023-11-11] MEDS: THERAGRAN 1 TABLET PO (07:49)
[2023-11-11] MEDS: LIDOCAINE 4% PATCH 1 PATCH TOPICAL (07:49)
[2023-11-11] MEDS: ELIQUIS 10 MG PO ×2 (07:49→22:22)
[2023-11-11] MEDS: NOVOLOG FLEXPEN-LOW RESISTANCE SC ×3 (07:50→16:25)
[2023-11-11 12:18] LABS: Glucose - Point of Care 123 mg/dl (70-99)
--- NOTE | 2023-11-11 12:43 | W.PN.HOSP.TC ---
Today's Communication/Plan
-
continue IV abx
Assessment / Plan
Assessment / Plan
Assessment:
Metabolic encephalopathy
- multifactorial from acute infections (bacteremia, possible PNA)
- monitor mentation
- CT head negative x 2
staph epi bacteremia
- continue cefazolin 2gIV q8hr x 6 weeks through 12/22/23. Eventually may need PO suppressive Abx vs observation afterwards
- POLLY with RV lead thickening. Repeat POLLY in 6 weeks planned outpatient. Given device is ~20 years old, lead extraction likely more difficult.
- no evidence of aortic graft infection on CT
RLL PE with RLE infarction consolidation
R flank pain
- no evidence of renal stone, PNA
- initiated on Eliquis
- Venous US ordered
Recent COVID infection 2 weeks ago
Anxiety/Depression
- Outpatient follow-up with psychiatry
- Lexapro continues
Type 2 diabetes
- Hold metformin, Januvia
- Hold glipizide
- Insulin sliding scale
- A1c: 6.0%
Coronary artery disease history of cardiac stents with ICD
- continue aspirin
Chronic HFpEF
- continue Coreg
Essential hypertension
BPH
- continue tamsulosin
COPD
- continue inhalers
Hyperlipidemia
- continue statin
GERD
- continue famotidine, Protonix
Hypothyroidism
- continue levothyroxine
History of left-sided Levy's palsy
DVT ppx: Eliquis
Code: Full
Anticipated Discharge: > 48 hours
Subjective/Interval History
-
Date of Service: November 11, 2023
no new complaints
Objective Data
-
Labs:
Laboratory Results
11/11/23
05:01
WBC 8.4
Hgb 9.3 L
Hct 28.0 L
Plt Count 229
Sodium 138
Potassium 3.5
Chloride 103
Carbon Dioxide 34 H
BUN 18
Creatinine 1.0
Glucose 110 H
Calcium 9.4
Vital Signs:
Vital Signs
Temp Pulse Resp BP Pulse Ox
98.5 F 65 16 133/62 95
11/11/23 12:07 11/11/23 12:07 11/11/23 12:07 11/11/23 12:07 11/11/23 12:07
I&O
11/10/23 11/11/23 11/12/23
06:59 06:59 06:59
Intake Total 750 / 750 1060 / 1060
Output Total 100 / 100
Balance 650 / 650 1060 / 1060
Physical Exam
-
General: No Apparent Distress
HEENT: Normocephalic and Atraumatic
Respiratory: Negative Wheezes
Cardiac: Regular Rhythm and S1/S2
GI: Soft and Nontender
Genito-urinary: No Costovertebral Tender
Musculoskeletal: No Edema
Neuro: AO x 3
Psych: Calm
Data Reviewed
-
Total Time Spent with Patient (in minutes): 44
Labs: Labs Reviewed by me
--- NOTE | 2023-11-11 14:30 | W.PN.ID1 ---
Date of Service
Date of Service: November 11, 2023
Today's Communication
Continue cefazolin.
Assessment / Plan
# Staph epi. (MSSE) bacteremia (3 sets over 2 days)
# Fever x 2 weeks -> now low grade
# Leukocytosis - resolved
# COVID + 2 weeks [employer]. Untreated. Not up to date with booster. COVID negative here
# hx PPM/ICD placement; dental work 2 months ago
# hx AAA endograft repair
- Repeat blood cultures x 2 neg x 72h
- CTA abd/pelvis without CT evidence to suggest superimposed graft infection.
- POLLY with some focal thickening of RV lead, cannot rule out endocarditis
- Continue cefazolin 2gIV q8hr x 6 weeks through 12/22/23, followed by lifelong suppressive abx.
- Follow temps.
- Infusion sheet submitted to case management
#Additional Past Medical History:
Diabetes mellitus
Hypertension
CAD status post stents
Ischemic cardiomyopathy status post ICD/ppm placement
BPH
COPD
Lung nodules
Hypothyroidism
Anxiety
Left side Levy's palsy
Dyslipidemia
AAA endograft repair
Hernia repair
Nephrolithiasis status post lithotripsy
Right and left rotator cuff surgery
Chief Complaint
-: Fever and Bacteremia
Subjective / Review of Systems
No new complaints.
Vital Signs / Physical Exam
Vital Signs
Vital Signs
Temp Pulse Resp BP Pulse Ox
98.5 F 65 16 133/62 95
11/11/23 12:07 11/11/23 12:07 11/11/23 12:07 11/11/23 12:07 11/11/23 12:07
Selected Entries
11/10/23
19:00
Temp 100.4 F H
Physical Exam
Constitutional: No Acute Distress and Comfortable
Gastrointestinal: Soft, Non Tender and Non Distended
Neurological: AO x 3
Lines: PICC (RUE intact)
Objective Data
Lab Data
Lab Results
11/11/23 05:01
11/11/23 05:01
Estimated Creat Clear 58 ml/min 11/11/23 05:01
Total Bilirubin 1.1 mg/dl (0.2-1.3) 11/05/23 04:53
AST 38 U/L (17-59) 11/05/23 04:53
ALT 19 U/L (0-50) 11/05/23 04:53
Alkaline Phosphatase 41 U/L (38-126) 11/05/23 04:53
Most recent labs reviewed.
Micro Results:
11/06/23 11:22 Blood Culture - Final
Blood/Venous No Growth - Final Report
11/07/23 08:44 Blood Culture - Preliminary
Blood/Venous No Growth in 4 days- Final report to follow
11/05/23 16:26 Blood Culture - Final
Blood/Venous Staphylococcus epidermidis
Gram Stain - Final
11/04/23 23:48 Blood Culture - Final
Blood/Venous Staphylococcus epidermidis
Gram Stain - Final
11/04/23 23:48 Blood Culture - Final
Blood/Venous Staphylococcus epidermidis
Gram Stain - Final
11/05/23 23:53 MRSA Screen - Final
Nose No Methicillin Resistant Staphylococcus aureus isolated.
11/05/23 13:34 Urine Culture - Final
Urine No Significant Growth
[2023-11-11] MEDS: ROXICODONE 5 MG PO (14:47)
--- NOTE | 2023-11-11 15:00 | CM ---
Spoke with attending who stated that patient's family has concerns about patient returning home with IV ABX as he is forgetful and he will be alone during the day, therefore, he will not be able to self administer. Met with patient's children, Luis Angel
and Aimee. Both were concerned about patient returning home. They also felt that although patient is close to his baseline, he could benefit from PT as he is not active at home.
Spoke with patient who is agreeable to SNF.
Placed a call to patient's , Renée, who was agreeable with plan for patient to go to SNF.
Referrals were sent yesterday to facilities which are local. Patient' son requested that patient transfers locally.
Per [employer], [facility] offered a bed. Placed a call to Dunia in admissions at [facility] who confirmed acceptance. She will have a bed available tomorrow if patient is medically stable.
Will f/u regarding discharge plan with attending tomorrow.
Plan: Case management will continue to follow and assist with discharge planning. Amber Patel.
[2023-11-11] MEDS: ASPIR LOW (ENTERIC COATED) 81 MG PO (16:22)
[2023-11-11 16:27] LABS: Glucose - Point of Care 127 mg/dl (70-99)
[2023-11-11 21:32] LABS: Glucose - Point of Care 156 mg/dl (70-99)
[2023-11-11] MEDS: FLOMAX 0.4 MG PO (22:22)
[2023-11-12 03:09] VITALS: BP 156/72
[2023-11-12 04:53] LABS: Hematocrit 26.7 % (39.0-52.0); Mean Corp Hgb Conc. 33.7 g/dL (33.0-37.0); Mean Corpuscular Hgb 26.3 pg (27.0-31.0); Mean Corpuscular Volume 78.1 fL (80.0-94.0); Mean Platelet Volume 9.5 fL (7.4-10.4); Platelet Count 252 10^3/uL (130-400); Red Blood Cell Count 3.42 10^6/uL (4.70-6.10); Red Cell Dist. Width 14.7 % (11.5-14.5); White Blood Cell Count 8.4 10^3/uL (4.8-10.8)
[2023-11-12] MEDS: ROXICODONE 5 MG PO (05:15)
[2023-11-12] MEDS: SYNTHROID 50 MCG PO (05:16)
[2023-11-12] MEDS: ANCEF 10 IV ×2 (05:16→13:10)
[2023-11-12] MEDS: FLUSH (NSS) 1 FLUSH IV (05:17)
[2023-11-12 05:20] LABS: Blood Urea Nitrogen 14 mg/dl (9-20); Calcium 9.3 mg/dl (8.4-10.2); Carbon Dioxide 31 mmol/L (22-30); Chloride 103 mmol/L (98-107); Estimated Creatinine Clearance 53 ml/min; Glucose 124 mg/dl (70-99); Potassium 3.4 mmol/L (3.5-5.1); Sodium 139 mmol/L (135-145); eGFR > 60.00
[2023-11-12 05:40] VITALS: BMI 21.6
[2023-11-12] MEDS: DETROL LA 4 MG PO (07:44)
[2023-11-12] MEDS: CRESTOR 40 MG PO (07:44)
[2023-11-12] MEDS: FEOSOL 325 MG PO (07:44)
[2023-11-12] MEDS: COREG 12.5 MG PO (07:44)
[2023-11-12] MEDS: ELIQUIS 10 MG PO (07:44)
[2023-11-12] MEDS: THERAGRAN 1 TABLET PO (07:44)
[2023-11-12] MEDS: LIDOCAINE 4% PATCH 1 PATCH TOPICAL (07:44)
[2023-11-12] MEDS: PROTONIX 40 MG PO (07:44)
[2023-11-12] MEDS: LEXAPRO 10 MG PO (07:44)
[2023-11-12] MEDS: NOVOLOG FLEXPEN-LOW RESISTANCE SC ×2 (07:47→11:47)
[2023-11-12 07:48] LABS: Glucose - Point of Care 122 mg/dl (70-99)
[2023-11-12 07:51] VITALS: BP 139/64
[2023-11-12] MEDS: KCL 40 MEQ PO (08:42)
[2023-11-12 09:57] VITALS: BP 139/71; PULSE 79
--- NOTE | 2023-11-12 09:59 | W.PN.ID1 ---
Date of Service
Date of Service: November 12, 2023
Today's Communication
Continue cefazolin 2gIV q8hr x 6 weeks through 12/22/23, followed by lifelong suppressive abx with cefuroxime 500mg po qd.
Assessment / Plan
# Staph epi. (MSSE) bacteremia (3 sets over 2 days)
# Fever now resolved
# Leukocytosis - resolved
# hx PPM/ICD placement
# hx AAA endograft repair
# COVID + 2 weeks RIBBER. Untreated. Not up to date with booster. COVID negative here
Plan:
- Repeat blood cultures x 2 neg
- CTA abd/pelvis without CT evidence to suggest superimposed graft infection.
- POLLY with some focal thickening of RV lead, cannot rule out endocarditis
- Continue cefazolin 2gIV q8hr x 6 weeks through 12/22/23, followed by lifelong suppressive abx with cefuroxime 500mg po qd.
- Follow weekly CBC, CMP.
- To SNF
- Follow-up with me in 3 to 4 weeks.
#Additional Past Medical History:
Diabetes mellitus
Hypertension
CAD status post stents
Ischemic cardiomyopathy status post ICD/ppm placement
BPH
COPD
Lung nodules
Hypothyroidism
Anxiety
Left side Levy's palsy
Dyslipidemia
AAA endograft repair
Hernia repair
Nephrolithiasis status post lithotripsy
Right and left rotator cuff surgery
Chief Complaint
-: Fever and Bacteremia
Subjective / Review of Systems
No new complaints.
Vital Signs / Physical Exam
Vital Signs
Vital Signs
Temp Pulse Resp BP Pulse Ox
98.4 F 75 16 139/64 93
11/12/23 07:51 11/12/23 07:51 11/12/23 07:51 11/12/23 07:51 11/12/23 07:51
Physical Exam
Constitutional: No Acute Distress and Comfortable
Gastrointestinal: Soft, Non Tender and Non Distended
Extremities: Negative Edema
Objective Data
Lab Data
Lab Results
11/12/23 04:22
11/12/23 04:22
Estimated Creat Clear 53 ml/min 11/12/23 04:22
Total Bilirubin 1.1 mg/dl (0.2-1.3) 11/05/23 04:53
AST 38 U/L (17-59) 11/05/23 04:53
ALT 19 U/L (0-50) 11/05/23 04:53
Alkaline Phosphatase 41 U/L (38-126) 11/05/23 04:53
Most recent labs reviewed.
Micro Results:
11/07/23 08:44 Blood Culture - Final
Blood/Venous No Growth - Final Report
11/06/23 11:22 Blood Culture - Final
Blood/Venous No Growth - Final Report
11/05/23 16:26 Blood Culture - Final
Blood/Venous Staphylococcus epidermidis
Gram Stain - Final
11/04/23 23:48 Blood Culture - Final
Blood/Venous Staphylococcus epidermidis
Gram Stain - Final
11/04/23 23:48 Blood Culture - Final
Blood/Venous Staphylococcus epidermidis
Gram Stain - Final
11/05/23 23:53 MRSA Screen - Final
Nose No Methicillin Resistant Staphylococcus aureus isolated.
11/05/23 13:34 Urine Culture - Final
Urine No Significant Growth
[2023-11-12 11:36] VITALS: BP 123/54
[2023-11-12 11:46] LABS: Glucose - Point of Care 138 mg/dl (70-99)
--- NOTE | 2023-11-12 13:42 | CM ---
Spoke with attending who stated that patient is medically cleared for discharge. Placed a call to Dunia pompa morenita at [facility] who confirmed acceptance.
Placed a call to Patient's children, Aimee and Luis Angel but had to leave a voice mail message. Left message for patient's however also had to leave a voice mail message.
Received return call back from Luis Angel who stated that family will be able to transport over to [facility] and he will return call with a time.
RN and attending updated.
Plan: Case management will continue to follow and assist with discharge planning. [facility] today.
--- NOTE | 2023-11-12 13:59 | W.PN.HOSP.TC ---
Today's Communication/Plan
-
dc to SNF
Assessment / Plan
Assessment / Plan
Assessment:
Metabolic encephalopathy
- multifactorial from acute infections (bacteremia, possible PNA)
- monitor mentation
- CT head negative x 2
staph epi bacteremia
- continue cefazolin 2gIV q8hr x 6 weeks through 12/22/23 followed by lifelong suppressive abx with cefuroxime 500mg po qd.
- POLLY with RV lead thickening. Repeat POLLY in 6 weeks planned outpatient. Given device is ~20 years old, lead extraction likely more difficult.
- no evidence of aortic graft infection on CT
RLL PE with RLE infarction consolidation
R flank pain
- no evidence of renal stone, PNA
- initiated on Eliquis
- DVT study negative
Recent COVID infection 2 weeks ago
Anxiety/Depression
- Outpatient follow-up with psychiatry
- Lexapro continues
Type 2 diabetes
- resume metformin, Januvia, glipizide
- Insulin sliding scale
- A1c: 6.0%
Coronary artery disease history of cardiac stents with ICD
- continue aspirin
Chronic HFpEF
- continue Coreg
Essential hypertension
BPH
- continue tamsulosin
COPD
- continue inhalers
Hyperlipidemia
- continue statin
GERD
- continue famotidine, Protonix
Hypothyroidism
- continue levothyroxine
History of left-sided Levy's palsy
DVT ppx: Eliquis
Code: Full
More than 30 minutes spent in discharge including
Final examination of the patient
Summarizing hospital stay
Instructions for continuing care to all relevant caregivers
Preparation of discharge records, prescriptions, and referral forms
Total time spent (in minutes): 42
Anticipated Discharge: Today
Subjective/Interval History
-
Date of Service: November 12, 2023
no new complaints at present
Objective Data
-
Labs:
Laboratory Results
11/12/23
04:22
WBC 8.4
Hgb 9.0 L
Hct 26.7 L
Plt Count 252
Sodium 139
Potassium 3.4 L
Chloride 103
Carbon Dioxide 31 H
BUN 14
Creatinine 1.1
Glucose 124 H
Calcium 9.3
Vital Signs:
Vital Signs
Temp Pulse Resp BP Pulse Ox
98.7 F 63 16 123/54 95
11/12/23 11:36 11/12/23 11:36 11/12/23 11:36 11/12/23 11:36 11/12/23 11:36
I&O
11/11/23 11/12/23 11/13/23
06:59 06:59 06:59
Intake Total 1060 / 1060 960 / 960
Balance 1060 / 1060 960 / 960
Physical Exam
-
General: No Apparent Distress
HEENT: Normocephalic and Atraumatic
Respiratory: Negative Wheezes
Cardiac: Regular Rhythm and S1/S2
GI: Soft and Nontender
Genito-urinary: No Costovertebral Tender
Musculoskeletal: No Edema
Neuro: AO x 3
Hematologic / Lymphatic: No Lymphadenopathy
Psych: Calm
Data Reviewed
-
Total Time Spent with Patient (in minutes): 42
Labs: Labs Reviewed by me
--- NOTE | 2023-11-12 14:07 | W.DS.TRANS ---
DC Summary - Ob/Gyn
-
Discharge Instructions:
Discharge Diagnosis/Procedures endocarditis (RV lead thickening). PE
Diet Regular
Activity As tolerated
Others Tests repeat POLLY in 6-8 weeks with Cardiology
Other Services OT,PT
Instructions:
Stand-Alone Forms:
Changes to Home Medications: No
Discharge Medications:
DC Medications w/original date entered in [employer]
albuterol sulfate 90 mcg/actuation aerosol inhaler (Proventil HFA) 2 puff inhalation R Q4HPRN PRN SOB 09/17/12
aspirin 81 mg tablet,delayed release 81 mg PO QPM Blood clot prevention/tx 09/17/12
levothyroxine 50 mcg tablet (Levoxyl) 50 mcg PO DAILY Thyroid 09/17/12
pantoprazole 40 mg tablet,delayed release 40 mg PO DAILY Gastrointestinal issue 10/04/15
rosuvastatin 40 mg tablet (Crestor) 40 mg PO DAILY High cholesterol 11/23/17
escitalopram oxalate 10 mg tablet (Lexapro) 10 mg PO DAILY Mental Health/Anxiety 12/27/21
multivitamin 1 tab PO DAILY Supplement 12/27/21
tamsulosin 0.4 mg capsule 0.4 mg PO HS Urinary issue 12/27/21
metformin 500 mg tablet 500 mg PO BIDWMEAL Diabetes 11/04/23
tolterodine 4 mg capsule,extended release 24 hr 4 mg PO DAILY Urinary Issue 11/04/23
apixaban 5 mg tablet (Eliquis) 10 mg (2 x 5 mg) PO BID #68 tabs 11/12/23
carvedilol 12.5 mg tablet 12.5 mg PO BID #60 tabs 11/12/23
cefazolin 10 gram solution for injection 2 g IV Q8H #126 ea 11/12/23
ferrous sulfate 325 mg (65 mg iron) tablet (FeroSul) 325 mg PO DAILY #100 tabs 11/12/23
oxycodone 5 mg tablet 5 mg PO Q4HPRN PRN moderate severe pain #10 tabs 11/12/23
Home Medication Changes
Pending Results: No
Total time spent discharging patient (in min): 42
[2023-11-12 15:25] VITALS: BP 137/63
== END 2023-11-12 16:48 | DRG 288 ==
LOC: 3 WEST ACU 23:23
PROVIDERS: Clinical Nurse Specialist Family Health; Internal Medicine; ADMITTING PHYSICIAN Hospitalist; ATTENDING PHYSICIAN Internal Medicine; CONSULT PHYSICIAN Internal Medicine Cardiovascular Disease; EMERGENCY PHYSICIAN Emergency Medicine; FAMILY PHYSICIAN Family Medicine; OTHER PHYSICIAN Internal Medicine Infectious Disease
DX: I33.0 Acute and subacute infective endocarditis (principal); G93.41 Metabolic encephalopathy; I26.99 Other pulmonary embolism without acute cor pulmonale; I50.32 Chronic diastolic (congestive) heart failure; I47.20 Ventricular tachycardia, unspecified; R78.81 Bacteremia; I11.0 Hypertensive heart disease with heart failure; E03.9 Hypothyroidism, unspecified; E11.9 Type 2 diabetes mellitus without complications; J44.9 Chronic obstructive pulmonary disease, unspecified; F32.A Depression, unspecified; I25.82 Chronic total occlusion of coronary artery; I25.10 Atherosclerotic heart disease of native coronary artery without angina pectoris; I25.5 Ischemic cardiomyopathy; Z95.5 Presence of coronary angioplasty implant and graft; B95.7 Other staphylococcus as the cause of diseases classified elsewhere; N40.0 Benign prostatic hyperplasia without lower urinary tract symptoms; E78.00 Pure hypercholesterolemia, unspecified; K21.9 Gastro-esophageal reflux disease without esophagitis; F41.9 Anxiety disorder, unspecified; G51.0 Bell's palsy; R06.02 Shortness of breath; H92.02 Otalgia, left ear; Z79.01 Long term (current) use of anticoagulants; Z79.82 Long term (current) use of aspirin; Z79.84 Long term (current) use of oral hypoglycemic drugs; Z79.890 Hormone replacement therapy; Z79.899 Other long term (current) drug therapy; Z95.810 Presence of automatic (implantable) cardiac defibrillator; Z86.16 Personal history of COVID-19; Z86.79 Personal history of other diseases of the circulatory system; Z87.19 Personal history of other diseases of the digestive system; Z87.891 Personal history of nicotine dependence; Z91.81 History of falling; Z88.0 Allergy status to penicillin; Z88.1 Allergy status to other antibiotic agents
CPT/HCPCS: 70450; 71045; 71046; 74174; 76604; 76770; 80048; 80053; 80202; 81003; 81015; 82306; 82607; 82746; 82962; 83036; 83540; 83550; 83735; 84100; 84439; 84443; 85025; 85027; 87040; 87070; 87086; 87147; 87150; 87186; 87205; 87811; 93005; 93306; 93312; 93320; 93325; 93970; 94640; 97110; 97116; 97162; 97166; 97530; 99284; J2020; Q9967

== ENCOUNTER 2023-12-07 11:35 | Emergency (ER) | payer MEDICARE, OTHER, SELFPAY ==
[2023-12-07] VITALS (8 sets, daily range): BP systolic 107–153; BP diastolic 62–78; BMI 23.4
[2023-12-07 13:47] LABS: % Basophils 0.6 % (0-2); % Eosinophils 2.8 % (0-6); % Immature Granulocytes 0.2 % (0-0.5); % Lymphocytes 10.9 % (20.5-51.1); % Neutrophils 69.5 % (42.2-75.2); Absolute Basophils 0.1 10^3/uL (0-0.2); Absolute Eosinophils 0.2 10^3/uL (0-0.7); Absolute Lymphocytes 0.9 10^3/uL (1.2-3.4); Absolute Monocytes 1.4 10^3/uL (0.1-0.6); Hematocrit 30.1 % (39.0-52.0); Hemoglobin 9.8 g/dL (13.0-18.0); Mean Corp Hgb Conc. 32.6 g/dL (33.0-37.0); Mean Corpuscular Hgb 26.4 pg (27.0-31.0); Mean Corpuscular Volume 81.1 fL (80.0-94.0); Mean Platelet Volume 10.3 fL (7.4-10.4); Nucleated Red Blood Cells % 0 % (-); Platelet Count 184 10^3/uL (130-400); Red Blood Cell Count 3.71 10^6/uL (4.70-6.10); Red Cell Dist. Width 17.1 % (11.5-14.5); White Blood Cell Count 8.6 10^3/uL (4.8-10.8)
--- NOTE | 2023-12-07 13:57 | ED.GENMED ---
History of Present Illness
General
Chief Complaint: Musculo-Skeletal Complaint
Source: patient, records and spouse
Time Seen by Provider: 12/07/23 13:05
History of Present Illness
History of Present Illness:
This patient is a 73-year-old male with a recent diagnosis of endocarditis, currently at a health care facility receiving IV antibiotics and physical therapy/rehab. Patient states that he felt like he was improving until sometime last week when he
noted increasing difficulty ambulating. He says he is having episodes of chills although no fever documented. Last week he had a generalized headache, not sudden onset, lasting about a day, associated with upper neck discomfort which is still
there but better. He describes the neck as 'stiff'. The pain in the neck seems to be brought on turning his head to the left. He denies photophobia, rash, numbness, tingling, focal weakness, visual changes. He denies nausea. He also notes pain
in the right groin area, particular with movement. He says he has been doing a lot of twisting as part of his rehab and feels that he 'pulled' his groin. Most recently it was noted that his right knee is edematous associated with pain which
prompted his visit here. According to his transfer paperwork, staff noted that patient had 'confusion' over the weekend associated with a right knee that is warm and swollen. who is bedside clarifies that patient has always been fully
oriented but he had memory deficits over the weekend, for example not remembering people that had visited. Here in the ER, the patient denies any neck pain at baseline but upon moving his head to the left does report mild stiffness. He denies back
pain, abdominal pain, chest pain, dyspnea, cough, sore throat, rhinorrhea, urinary symptoms. He denies bowel or bladder incontinence or perianal anesthesia, such as except yesterday he has had such difficulty getting to the restroom that he has had
to wear diaper. He is not having loss of sensation while passing stool or urine, but rather delay in getting to a toilet is causing him to need to wear a diaper.
Past History
Past History
ED Past Medical History: Asthma, CAD, CHF, COPD, GERD, HTN, Hypercholesterolemia, NIDDM, [place], Hypothyroidism, Psychiatric (Anxiety), Other (Peraza's Esophagus, Renal calculus, ) and Other ( Heart class III CHF, Back pain, Migraines, PNA, )
ED Past Surgical History: Cardiac (Coronary stents, AICD), Orthopedic (Right and left rotator cuff surgery), Urological (Kidney stone removal) and Other (Hernia repair, AAA with repair, Cataracts, )
Social History
Tobacco: Former smoker
Alcohol: None
Drug: None
Personal:
Living: with family
Employment: Retired
Family History
Family History: Other (Noncontributory)
Phy Exam
Physical Exam
Physical Exam:
GENERAL: Alert , in no apparent distress
EYE: pupils equal and reactive, no photophobia, EOMI, no nystagmus
NECK: Supple, no significant adenopathy, no midline tenderness, trachea midline, full range of motion of neck, spontaneously nods yes and no, does report but when turning to the left side.
ENT: o/p clr, mmm.
CARDIAC: Regular rate and rhythm .
LUNGS: Clear breath sounds bilaterally, no acute respiratory distress, no wheezes/rales/rhonchi
ABDOMEN: Soft, without focal tenderness, no r/g
NEUROLOGICAL: Alert and oriented x 3, cranial nerves II through XII intact, sensation intact, no focal neuro deficits but limitation of right lower extremity range of motion due to groin and knee pain
SKIN: Warm and dry, skin intact.
MUSCULOSKELETAL: Bilateral knee effusions noted, right much greater than left with limitation of range of motion moderately due to pain. I do not appreciate erythema lesions or break in skin at the knees. The right knee is mildly warm. Decreased
range of motion at the right hip area due to a 'pulling' sensation, no swelling, redness, tenderness to palpation, or other abnormalities noted.
PSYCH: Normal and appropriate interaction.
Course
Orders/Labs/Results
Orders:
Orders
12/07/23 11:59
Electrocardiogram (*1) Urgent
Reason for Study: Fatigue / Weakness
EKG- Treatment ONCE
12/07/23 12:50
CR Chest - 2 Views Urgent
Comment: Arrives c/o chills and fatigue, recent sepsis
Reason For Exam: right picc line confirmation
12/07/23 12:52
Knee, Right 4 or More Views [CR Knee- Right 4 Or More View*] Urgent
Comment:
Reason For Exam: swollen, hot, painful right knee
12/07/23 12:58
Knee, Left 4 or More Views [CR Knee - Left 4 Or More View*] Urgent
Comment:
Reason For Exam: left knee swelling and pain, no injury
12/07/23 13:33
C-Reactive Protein Urgent
Comment: ADD
Complete Blood Count/With Diff Urgent
Comprehensive Metabolic Panel Urgent
Erythrocyte Sed Rate Urgent
Comment: ADD
Prothrombin Time Urgent
12/07/23 14:04
Hip, Right 2-3 Views [CR Hip - RT w/wo Pel 2-3 Vw*] Urgent
Comment:
Reason For Exam: pain
Include a pelvis x-ray?: Yes
12/07/23 14:05
CT Head W/o Iv Contrast Urgent
Comment:
Reason For Exam: reported confusion
CT Neck With Iv Contrast Urgent
Comment:
Reason For Exam: recent endocarditis, now pain
12/07/23 14:06
Add On- LAB Urgent
Tests Added?: sed rate, CRP
12/07/23 14:22
Lactic Acid Q4H
Comment: CANCEL 2nd LACTIC ACID IF 1st LACTIC ACID IS LESS THAN 2
Blood Culture Routine
ALONSO Source: Blood/Venous
Specimen Description:
Blood Culture Urgent
ALONSO Source: Blood/Venous
Specimen Description:
12/07/23 16:49
Urinalysis Reflex To Culture Urgent
Date Specimen was Collected: 12/07/23
Time Specimen was Collected: 14:05
Urine Microscopic Reflex Cult Urgent
Urine Culture Urgent
ALONSO Source: U
Specimen Description:
Date Specimen was Collected: 12/07/23
Time Specimen was Collected: 14:05
12/07/23 18:06
Body Fluid Cell Count Urgent
What is the Body Fluid: joint
Date Specimen was Collected: 12/07/23
Time Specimen was Collected: 17:41
Comment: with DIFF
Body Fluid Crystals Urgent
What is the Body Fluid: joint
Date Specimen was Collected: 12/07/23
Time Specimen was Collected: 17:41
Body Fluid Glucose Urgent
Fluid Source: Other
Date Specimen was Collected: 12/07/23
Time Specimen was Collected: 17:41
Fluid Culture with Gram Stain Urgent
ALONSO Source: Joint Fluid
Specimen Description:
Date Specimen was Collected: 12/07/23
Time Specimen was Collected: 17:41
12/07/23 18:39
Lyme PCR, DNA [S] Routine
12/07/23 19:52
CeFAZolin 2 GRAM [Ancef] 2 grams in 10 ml IV NOW
Colchicine 1.2 mg PO NOW STA
Abnormal Lab Results
12/07/23 12/07/23
13:33 16:49
RBC 3.71 L 10^6/uL
(4.70-6.10)
Hgb 9.8 L g/dL
(13.0-18.0)
Hct 30.1 L %
(39.0-52.0)
MCH 26.4 L pg
(27.0-31.0)
MCHC 32.6 L g/dL
(33.0-37.0)
RDW 17.1 H %
(11.5-14.5)
Absolute Lymphs (auto) 0.9 L 10^3/uL
(1.2-3.4)
Absolute Monos (auto) 1.4 H 10^3/uL
(0.1-0.6)
Lymphocytes % 10.9 L %
(20.5-51.1)
Monocytes % 16.0 H %
(1.7-9.3)
ESR 47 H mm/hour
(0-20)
PT 19.9 H Sec
(11.4-14.6)
Potassium 3.0 L mmol/L
(3.5-5.1)
Carbon Dioxide 34 H mmol/L
(22-30)
Glucose 101 H mg/dl
(70-99)
AST 61 H U/L
(17-59)
C-Reactive Protein 190.10 H mg/L
(0.0-10.00)
Total Protein 6.1 L g/dl
(6.3-8.2)
Albumin 3.3 L g/dl
(3.5-5.0)
Ur Occult Blood Reflex 2+ A
(Negative)
Urine RBC 3-6 A /HPF
(0-2)
Urine WBC (Reflex) 11-15 A /HPF
(0-5)
Urine Bacteria (Reflex) Many A
(Negative)
Urine Albumin (Reflex) 2+ A
(Neg - Trace)
12/07/23 13:33
12/07/23 13:33
Vital Signs
Initial and Last Documented VS:
Initial Vital Signs
Temp Pulse Resp BP Pulse Ox
98 F 60 18 124/62 97
12/07/23 11:44 12/07/23 11:44 12/07/23 11:44 12/07/23 11:44 12/07/23 11:44
Last Documented Vital Signs
Temp Pulse Resp BP Pulse Ox
98.4 F 61 25 147/63 96
12/07/23 15:34 12/07/23 19:00 12/07/23 19:30 12/07/23 19:00 12/07/23 18:00
Procedures
Incision/Drainage/Joint Aspiration
Right Knee:
Anethesia: 1% Lidocaine with Epi
Preparation: cleaned with Betadine
Type of procedure: drain
Nature of site: other
How much fluid was obtained?: large amount (40 ml)
Fluid description: serosanguinous
Treatment: bandaid applied
Update Note
Update Note:
Patient presents to the Emergency Department with ____multiple symptoms including headache, neck pain, knee swelling, groin discomfort
Number and Complexity of Problems Addressed at the Encounter
� Chronic conditions affecting care:
� Acute Exacerbation and/or Progression of Chronic Illness:
� Differential Diagnosis includes: But not limited to knee effusion, fracture, septic arthritis, neck abscess, etc. etc.
Amount and/or Complexity of Data to be Reviewed and Analyzed
� I performed an independent evaluation of and my interpretation is:
EKG: Read by me, paced rhythm, nonspecific T wave flattening
CT:here is multilevel degenerative changes throughout the cervical spine with endplate irregularity at the C6-C7 level which is unchanged from prior CT dated 06/18/2023 and therefore likely degenerative in nature. There is
multifocal neuroforaminal narrowing most pronounced at C4-C5 and C5-C6 where it is moderate/severe bilaterally.
No suspicious enhancement is identified within the cervical spinal canal.
CT: No acute intracranial abnormality noted.
Stable senescent changes as detailed above.
Xrays:no fx pelvis/knees bilat large R effusion noted. CXR effusion resolved, nad
Laboratory Studies: Normal white blood cell count elevated CRP/ESR which could be consistent with inflammatory process noted with synovial fluid mild hypokalemia will replace here
Other: Synovial fluid white count 20K consistent with inflammation, crystals seen consistent with pseudogout, Gram stain negative
� Review of other/old records reveals: Discharge summary reviewed from weight patient was discharged and diagnosed with endocarditis, cultures positive for MSSA
� Clinical information was obtained by an independent historian: who is bedside
� Prescriptions/Medications Considered but not given: Considered nonsteroidals for pseudogout however given his anticoagulation use will give colchicine
� Further testing considered but not performed:
Risk of Complications and/or Morbidity or Mortality of Patient Management
� Social determinants of health affecting care:
� Discussion with other providers (PCP, Hospitalists, Consultants, etc):
� Escalation of care including admission/observation vs risk of discharge considered: Patient has been in the emergency department during this extensive workup for some time, he remains oriented and pleasant, I do not suspect
meningitis/encephalitis in light of his neck pain, he nods yes and no easily, no photophobia, no fever, etc. His synovial fluid is consistent with pseudogout and we will treat accordingly. Workup here otherwise unremarkable. Of note, before doing
arthrocentesis I did discuss with Dr. Landeros from orthopedics regarding the relative contraindication of anticoagulation and he felt very comfortable recommending that we proceed. Procedure was uneventful without bleeding. Discussed with Courtney at
the facility regarding his workup here, recommendations for colchicine, close follow-up, and reasons to return to the ER.
ED Attending Note
-
Portions of this chart may have been created with voice recognition software.� Occasional wrong word or��sound alike� substitutions may have occurred due to the inherent limitations of voice recognition software.
Discharge Plan
Departure
Patient Disposition: [facility]/SNF
Date of Disposition: 12/07/23
Time of Disposition: 20:06
Patient with high blood pressure during this ER visit?: Yes
Condition: Fair
Discharge Problem:
Pseudogout
Instructions: Calcium pyrophosphate deposition disease, BLOOD PRESSURE
Prescriptions:
New
colchicine 0.6 mg capsule
0.6 mg PO BID Qty: 20 0RF
No Action
aspirin 81 MG tablet,delayed release (DR/EC)
81 mg PO DAILY
levothyroxine [Levoxyl] 50 MCG tablet
50 mcg PO DAILY
albuterol sulfate [Proventil HFA] 90 MCG/PUFF HFA aerosol inhaler
2 puff inhalation R Q4HPRN PRN (Reason: SOB)
Patient Comments:
pantoprazole 40 MG tablet,delayed release (DR/EC)
40 mg PO DAILY
rosuvastatin [Crestor] 40 MG tablet
40 mg PO HS
tamsulosin 0.4 mg Capsule
0.4 mg PO HS
escitalopram oxalate [Lexapro] 10 mg Tablet
10 mg PO DAILY
tolterodine 4 mg capsule,extended release 24hr
4 mg PO DAILY
metformin 500 mg tablet
500 mg PO BID
cefazolin 10 gram Recon Soln
2 g IV Q8H Qty: 126 0RF
ferrous sulfate [FeroSul] 325 mg (65 mg iron) Tablet
325 mg PO DAILY Qty: 100 0RF
carvedilol 12.5 mg Tablet
12.5 mg PO BID Qty: 60 0RF
acetaminophen 325 mg Tablet
650 mg PO Q4HPRN PRN (Reason: mild pain/temp >100)
Theragen Tablet
1 tab PO DAILY
magnesium hydroxide [Milk of Magnesia] 400 mg/5 mL Suspension
30 ml PO [id number] PRN (Reason: no bm 3 days)
bisacodyl [Dulcolax (bisacodyl)] 10 mg Suppository
10 mg MT DAILYPRN PRN (Reason: if mom ineffective aftr 24 hrs)
Fleet Enema 19-7 gram/118 mL Enema
118 ml MT DAILYPRN PRN (Reason: if dulcolax ineffect aftr 24 hrs)
cefuroxime axetil 500 mg Tablet
500 mg PO DAILY
oxycodone 5 mg tablet
5 mg PO Q4HPRN PRN (Reason: severe pain)
Eliquis 5 mg tablet
5 mg PO BID
Referrals:
Rodger Dior I., DO [Family Provider] -
Activity Restrictions/Additional Instructions:
IF YOU DEVELOP FEVER, VOMITING, INCREASING OR NEW PAIN, CHEST PAIN, SHORTNESS OF BREATH, OR OTHER WORRISOME SIGNS, PLEASE RETURN TO THE ER IMMEDIATELY! YOU SHOULD TAKE COLCHICINE, 0.6 MG TWICE A DAY, TO HELP TREAT THE INFLAMMATION IN YOUR RIGHT
KNEE.
Interventions
Interventions:
*Risk Screen - Suicide Last Done: 12/07/23 11:44
*General Assessment Last Done: 12/07/23 11:44
*Neglect/Abuse Screening Last Done: 12/07/23 11:44
ED-Musculoskeletal Assessment Last Done: 12/07/23 11:53
Discharge Date and Time
Print Language: MAORI
[2023-12-07 14:03] LABS: INR 1.71; PT 19.9 Sec (11.4-14.6)
[2023-12-07 14:04] LABS: ALT (SGPT) 13 U/L (0-50); AST (SGOT) 61 U/L (17-59); Albumin 3.3 g/dl (3.5-5.0); Alkaline Phosphatase 64 U/L (38-126); Blood Urea Nitrogen 17 mg/dl (9-20); Calcium 9.5 mg/dl (8.4-10.2); Carbon Dioxide 34 mmol/L (22-30); Chloride 101 mmol/L (98-107); Estimated Creatinine Clearance 54 ml/min; Glucose 101 mg/dl (70-99); Sodium 142 mmol/L (135-145); Total Bilirubin 0.5 mg/dl (0.2-1.3); Total Protein 6.1 g/dl (6.3-8.2); eGFR > 60.00
[2023-12-07 14:51] LABS: Lactic Acid 0.9 mmol/L (0.7-2.0)
[2023-12-07 14:53] LABS: Erythrocyte Sed Rate 47 mm/hour (0-20)
[2023-12-07 17:01] LABS: Urine Albumin 2+ (Neg - Trace); Urine Bilirubin Negative (Negative); Urine Character Slightly Cloudy (Clear); Urine Color Yellow; Urine Glucose Negative (Negative); Urine Ketone Negative (Negative); Urine Leukocyte Negative (Negative); Urine Nitrite Negative (Negative); Urine Occult Blood 2+ (Negative); Urine Specific Gravity 1.015 (<1.030); Urine Urobilinogen 1+ (Neg - 1+); Urine pH 6.5 (5.0-9.0)
[2023-12-07 17:14] LABS: Urine Squamous Cell 0-2 /LPF (Few)
[2023-12-07 17:15] LABS: Urine Bacteria Many (Negative)
[2023-12-07 19:13] LABS: Body Fluid Mononuclear 5.8 %; Body Fluid Polymorphonuclear 94.2 %; Body Fluid WBC 20490 /CUMM
[2023-12-07 19:26] LABS: Body Fluid Second Tech CMC
[2023-12-07 19:43] LABS: Body Fluid Glucose 49 mg/dl
[2023-12-07] MEDS: COLCHICINE 1.2 MG PO (20:00)
[2023-12-07] MEDS: ANCEF 10 IV (20:29)
[2023-12-10 18:40] LABS: Lyme Disease DNA by PCR Not Detected; Lyme Source Synovial fluid
== END 2023-12-07 23:42 ==
LOC: EMR 11:35
PROVIDERS: Emergency Medicine; EMERGENCY PHYSICIAN Emergency Medicine; FAMILY PHYSICIAN Internal Medicine
DX: M11.261 Other chondrocalcinosis, right knee (principal); I10 Essential (primary) hypertension
CPT/HCPCS: 99285; 20610; 96374; 70450; 70491; 71046; 73502; 73564; 80053; 81003; 81015; 82945; 83605; 85025; 85610; 85652; 86140; 87015; 87040; 87070; 87086; 87205; 87476; 89051; 89060; 93005; Q9967

== ENCOUNTER 2024-01-06 10:09 | Emergency (ER) | payer MEDICARE, OTHER, SELFPAY ==
[2024-01-06 10:22] VITALS: BP 155/86
--- NOTE | 2024-01-06 11:25 | ED.MUSCINJ ---
HPI-Injury
General
Chief Complaint: Musculo-Skeletal Complaint
Source: patient
Exam Limitations: none
Time Seen by Provider: 01/06/24 11:09
History of Present Illness-Injury
Initial Injury comments:
73-year-old male presents for reevaluation of left greater than right knee pain. He was here a month ago thought to have gout versus pseudogout was placed on colchicine. He thinks he got better however over the past 3 days his pain particular in
the left knee returned. No fevers. He does fall frequently he may have fallen maybe 10 days ago. He did not think he had an injury to his knee at that time. He is a diabetic. No other complaints at this time
Past History
Past History
ED Past Medical History: Asthma, CAD, CHF, COPD, GERD, HTN, Hypercholesterolemia, NIDDM, [place], Hypothyroidism, Psychiatric (Anxiety), Other (Peraza's Esophagus, Renal calculus, ) and Other ( Heart class III CHF, Back pain, Migraines, PNA, )
ED Past Surgical History: Cardiac (Coronary stents, AICD), Orthopedic (Right and left rotator cuff surgery), Urological (Kidney stone removal) and Other (Hernia repair, AAA with repair, Cataracts, )
Social History
Tobacco: Former smoker
Alcohol: None
Drug: None
Personal:
Living: with family
Employment: Retired
Family History
Family History: Other (Noncontributory)
Phy Exam
Physical Exam
Physical Exam:
General: Well-appearing male no acute respiratory distress
HEENT: Normocephalic atraumatic
Musculoskeletal exam: Left knee diffusely tender even to light touch. Small amount of soft tissue swelling. No obvious intra-articular effusion. No overlying excessive warmth range of motion is full. No tenderness over the posterior aspect of
the knee. The right knee is without swelling. He is nontender about the right knee
Skin: No erythema
Extremities: No cyanosis
Injury Course
Orders/Labs/Results
Orders:
Orders
01/06/24 11:22
CR Knee - Left 4 Or More View* Urgent
Comment:
Reason For Exam: pain
CR Knee- Right 4 Or More View* Urgent
Comment:
Reason For Exam: pain
MDM/Problems Addressed
Differential Diagnosis Includes:
Bilateral knee pain history of gout. Recent fall. Question recurrence of gout versus contusion versus bursitis versus fracture. Not concerned about septic arthritis. He has good motion lack of fever no skin changes. Considered aspiration of
knee however not indicated at this time. X-rays pending. If negative treat with colchicine. Cannot do prednisone secondary to diabetic state
*Critical Care Note
Total Time (30-74mins, 75-104mins- exclusive of procedures): Not Applicable
Update Note
Update Note:
X-rays both knees show degenerative changes and chondromalacia. I suspect patient has acute gout flareup again. Do not suspect septic arthritis. Will prescribe colchicine as he cannot do prednisone
ED Attending Note
-
Portions of this chart may have been created with voice recognition software.� Occasional wrong word or��sound alike� substitutions may have occurred due to the inherent limitations of voice recognition software.
Discharge Plan
Departure
Patient Disposition: Home (Routine Discharge)
Date of Disposition: 01/06/24
Time of Disposition: 13:29
Patient with high blood pressure during this ER visit?: No
Discharge Problem:
Acute knee pain
Instructions: Gout ED
Prescriptions:
New
colchicine 0.6 mg tablet
0.6 mg PO BID Qty: 20 0RF
No Action
aspirin 81 MG tablet,delayed release (DR/EC)
81 mg PO DAILY
levothyroxine [Levoxyl] 50 MCG tablet
50 mcg PO DAILY
albuterol sulfate [Proventil HFA] 90 MCG/PUFF HFA aerosol inhaler
2 puff inhalation R Q4HPRN PRN (Reason: SOB)
Patient Comments:
pantoprazole 40 MG tablet,delayed release (DR/EC)
40 mg PO DAILY
rosuvastatin [Crestor] 40 MG tablet
40 mg PO HS
tamsulosin 0.4 mg Capsule
0.4 mg PO HS
escitalopram oxalate [Lexapro] 10 mg Tablet
10 mg PO DAILY
tolterodine 4 mg capsule,extended release 24hr
4 mg PO DAILY
metformin 500 mg tablet
500 mg PO BID
cefazolin 10 gram Recon Soln
2 g IV Q8H Qty: 126 0RF
ferrous sulfate [FeroSul] 325 mg (65 mg iron) Tablet
325 mg PO DAILY Qty: 100 0RF
carvedilol 12.5 mg Tablet
12.5 mg PO BID Qty: 60 0RF
acetaminophen 325 mg Tablet
650 mg PO Q4HPRN PRN (Reason: mild pain/temp >100)
Theragen Tablet
1 tab PO DAILY
magnesium hydroxide [Milk of Magnesia] 400 mg/5 mL Suspension
30 ml PO [id number] PRN (Reason: no bm 3 days)
bisacodyl [Dulcolax (bisacodyl)] 10 mg Suppository
10 mg [place] DAILYPRN PRN (Reason: if mom ineffective aftr 24 hrs)
Fleet Enema 19-7 gram/118 mL Enema
118 ml [place] DAILYPRN PRN (Reason: if dulcolax ineffect aftr 24 hrs)
cefuroxime axetil 500 mg Tablet
500 mg PO DAILY
oxycodone 5 mg tablet
5 mg PO Q4HPRN PRN (Reason: severe pain)
Eliquis 5 mg tablet
5 mg PO BID
colchicine 0.6 mg capsule
0.6 mg PO BID Qty: 20 0RF
Referrals:
Sam Rowe MD [Family Provider] -
George Santos MD [Active] -
Activity Restrictions/Additional Instructions:
Take medicine as directed. Rest. You may use ice for discomfort. FOllow up with orthopedics.
Interventions
Interventions:
*Risk Screen - Suicide Last Done: 01/06/24 10:22
*General Assessment Last Done: 01/06/24 10:22
*Neglect/Abuse Screening Last Done: 01/06/24 10:22
ED- Fall Risk Assessment Last Done: 01/06/24 12:10
*ED COVID-19 Vaccine History Last Done: 01/06/24 12:16
ED-Musculoskeletal Assessment Last Done: 01/06/24 12:10
Discharge Date and Time
Print Language: MOHAWK
[2024-01-06 12:10] VITALS: BP 163/87
--- NOTE | 2024-01-06 13:49 | EDRN ---
Reviewed discharge instructions with patient. Verbalized understanding. Ambulated with steady gait to the lobby.
[2024-01-06 13:52] VITALS: BP 162/86
== END 2024-01-06 13:50 | disposition home or self-care (01) ==
LOC: EMR 10:09
PROVIDERS: EMERGENCY PHYSICIAN Emergency Medicine; FAMILY PHYSICIAN Family Medicine
DX: M25.562 Pain in left knee (principal); M25.561 Pain in right knee; M79.89 Other specified soft tissue disorders; M94.262 Chondromalacia, left knee; M94.261 Chondromalacia, right knee; E11.36 Type 2 diabetes mellitus with diabetic cataract; E78.00 Pure hypercholesterolemia, unspecified; I25.10 Atherosclerotic heart disease of native coronary artery without angina pectoris; M10.9 Gout, unspecified; I11.0 Hypertensive heart disease with heart failure; I50.9 Heart failure, unspecified; F41.9 Anxiety disorder, unspecified; J45.909 Unspecified asthma, uncomplicated; K21.9 Gastro-esophageal reflux disease without esophagitis; E03.9 Hypothyroidism, unspecified; G43.909 Migraine, unspecified, not intractable, without status migrainosus; K22.70 Barrett's esophagus without dysplasia; I25.2 Old myocardial infarction; Z79.01 Long term (current) use of anticoagulants; Z79.84 Long term (current) use of oral hypoglycemic drugs; Z87.442 Personal history of urinary calculi; Z95.5 Presence of coronary angioplasty implant and graft; Z95.810 Presence of automatic (implantable) cardiac defibrillator; Z87.891 Personal history of nicotine dependence; Z91.81 History of falling; Z88.3 Allergy status to other anti-infective agents; Z88.0 Allergy status to penicillin
CPT/HCPCS: 99283; 73564

== ENCOUNTER 2024-01-19 07:58 | Day surgery (SDC) | payer MEDICARE, OTHER, SELFPAY ==
[2024-01-19 08:40] LABS: Glucose - Point of Care 96 mg/dl (70-99)
== END 2024-01-19 10:12 | disposition home or self-care (01) ==
LOC: CATH 07:58
PROVIDERS: ATTENDING PHYSICIAN Internal Medicine Cardiovascular Disease; FAMILY PHYSICIAN Family Medicine; OTHER PHYSICIAN Internal Medicine Cardiovascular Disease
DX: I08.3 Combined rheumatic disorders of mitral, aortic and tricuspid valves (principal); I25.10 Atherosclerotic heart disease of native coronary artery without angina pectoris; Z95.5 Presence of coronary angioplasty implant and graft; I11.0 Hypertensive heart disease with heart failure; I50.32 Chronic diastolic (congestive) heart failure; Z95.810 Presence of automatic (implantable) cardiac defibrillator; E78.5 Hyperlipidemia, unspecified; E03.9 Hypothyroidism, unspecified; E11.9 Type 2 diabetes mellitus without complications; J44.9 Chronic obstructive pulmonary disease, unspecified; K21.9 Gastro-esophageal reflux disease without esophagitis; Z79.82 Long term (current) use of aspirin; Z79.84 Long term (current) use of oral hypoglycemic drugs; Z79.01 Long term (current) use of anticoagulants
CPT/HCPCS: 93312; 93320; 93325; 82962

== ENCOUNTER → 2024-01-29 09:49 | Outpatient (REF) | payer MEDICARE, OTHER, SELFPAY ==
[2024-01-29 12:03] LABS: ALT (SGPT) 18 U/L (0-50); AST (SGOT) 23 U/L (17-59); Albumin 4.1 g/dl (3.5-5.0); Alkaline Phosphatase 61 U/L (38-126); Blood Urea Nitrogen 24 mg/dl (9-20); Calcium 10.1 mg/dl (8.4-10.2); Carbon Dioxide 31 mmol/L (22-30); Chloride 103 mmol/L (98-107); Glucose 107 mg/dl (70-99); HDL Cholesterol 56 mg/dl; LDL Cholesterol, Calculated 33 mg/dl; Potassium 4.7 mmol/L (3.5-5.1); Sodium 144 mmol/L (135-145); Total Bilirubin 0.3 mg/dl (0.2-1.3); Total Cholesterol 106 mg/dl (50-199); Total Protein 6.7 g/dl (6.3-8.2); Triglyceride 85 mg/dl (10-149); Very Low Density Lipoprotein 17 mg/dl (0-30); eGFR > 60.00
[2024-01-29 12:19] LABS: Free T4 1.34 ng/dl (0.78-2.19)
[2024-01-29 12:32] LABS: TSH 2.36 uIU/ml (0.47-4.68)
[2024-01-29 13:03] LABS: Glycohemoglobin (HgbA1c) 5.2 % (4.0-5.6); Microalbumin, Random Urine 23.6 mg/dl (0.6-1.7); Microalbumin/creatinine Ratio 145.8 mg/g
== END ==
LOC: REG 09:49
PROVIDERS: ATTENDING PHYSICIAN Nurse Practitioner Family; FAMILY PHYSICIAN Family Medicine
DX: E11.9 Type 2 diabetes mellitus without complications (principal); E03.9 Hypothyroidism, unspecified
CPT/HCPCS: 36415; 80053; 80061; 82043; 82570; 83036; 84439; 84443

== ENCOUNTER → 2024-03-28 11:06 | Outpatient (REF) | payer MEDICARE, OTHER, SELFPAY | LOC: REG 11:06 | PROVIDERS: ATTENDING PHYSICIAN Internal Medicine Infectious Disease; FAMILY PHYSICIAN Family Medicine | DX: T82.7XXD Infection and inflammatory reaction due to other cardiac and vascular devices, implants and grafts, subsequent encounter (principal) | CPT/HCPCS: 36415; 87040 ==

== ENCOUNTER → 2024-04-01 09:05 | Outpatient (REF) | payer MEDICARE, OTHER, SELFPAY | LOC: RAD 09:05 | PROVIDERS: ATTENDING PHYSICIAN Surgery Vascular Surgery; FAMILY PHYSICIAN Family Medicine | DX: I71.43 Infrarenal abdominal aortic aneurysm, without rupture (principal) | CPT/HCPCS: 76770 ==

== ENCOUNTER 2024-04-05 12:36 | Inpatient (IN) | payer MEDICARE, OTHER, SELFPAY ==
[2024-04-05] VITALS (12 sets, daily range): BP systolic 114–146; BP diastolic 48–79; BMI 22.7
--- NOTE | 2024-04-05 07:29 | ED.GENMED ---
History of Present Illness
General
Chief Complaint: Weakness
Time Seen by Provider: 04/05/24 07:16
History of Present Illness
History of Present Illness:
73-year-old male with history of abdominal aortic aneurysm status post EVAR, CHF, CAD, hypertension, hyperlipidemia, coronary artery disease, and biventricular AICD presents to the emergency department for evaluation of generalized weakness and
fever. He has apparently had dry cough for the past week but over the past 24 hours has become increasingly weak and confused. History is somewhat challenging and the patient answers 'I am not sure' to many questions. No chest pain or dyspnea at
present. Denies any leg swelling.
Of note patient was admitted to this hospital in October subsequently transferred to the [facility] due to gram-positive bacteremia with AICD lead infection, status post AICD explant. He was on 6 weeks of IV antibiotics and followed
this with a long course of cefuroxime that the patient states was completed yesterday.
Past History
Past History
ED Past Medical History: Asthma, CAD, CHF, COPD, GERD, HTN, Hypercholesterolemia, NIDDM, [place], Hypothyroidism, Psychiatric (Anxiety), Other (Peraza's Esophagus, Renal calculus, ) and Other ( Heart class III CHF, Back pain, Migraines, PNA, )
ED Past Surgical History: Cardiac (Coronary stents, AICD), Orthopedic (Right and left rotator cuff surgery), Urological (Kidney stone removal) and Other (Hernia repair, AAA with repair, Cataracts, )
Social History
Tobacco: Former smoker
Alcohol: None
Drug: None
Personal:
Living: with family
Employment: Retired
Family History
Family History: Other (Noncontributory)
Review of Systems
Review of Systems
Allergies reviewed?: Yes
All Other Systems: ROS reviewed and negative except as documented in HPI and ROS
Phy Exam
Physical Exam
Physical Exam:
GEN: Well appearing, NAD, WDWN
Eyes: PERRLA, EOMs intact, no scleral icterus
HENT: NCAT, oral mucosa moist
Lungs: Diminished left-sided breath sounds with faint crackles, right lung sounds clear
Cardiac: RRR, no M/R/G, no peripheral edema. Radial pulses 2+ bilat
Abdomen: S, NT, ND, NABS, no masses or hepatosplenomegaly
Neuro: AO x 3, somewhat slow to respond to questions, no focal deficits
MSK: No gross deformity or ecchymosis. No edema. No digital clubbing
Skin: No rashes, petechiae. Normal color, no pallor or jaundice.
Psych: Calm, cooperative, proper hygiene
Course
Orders/Labs/Results
Orders:
Orders
04/05/24 07:25
Acetaminophen [Tylenol] 650 mg PO NOW STA
04/05/24 07:26
CR Chest - 2 Views Urgent
Comment:
Reason For Exam: cough/fever/SOB
04/05/24 07:59
COVID-19 Antigen Urgent
Source: Nasal Swab
Complete Blood Count/With Diff Urgent
Comprehensive Metabolic Panel Urgent
Lactic Acid Q4H
Comment: CANCEL 2nd LACTIC ACID IF 1st LACTIC ACID IS LESS THAN 2
NT-proBNP Urgent
Troponin I Urgent
Blood Culture Q30M
ALONSO Source: Blood/Venous
Specimen Description:
Influenza A+B Rapid Molecular Urgent
ALONSO Source: Nasal Swab
Specimen Description:
04/05/24 08:00
Blood Culture Q30M
ALONSO Source: Blood/Venous
Specimen Description:
04/05/24 09:58
Urinalysis Reflex To Culture Urgent
Date Specimen was Collected: 04/05/24
Time Specimen was Collected: 09:18
Urine Microscopic Reflex Cult Urgent
04/05/24 12:06
Admit Patient As Directed
Co-Sign Provider:
Level of Care: Inpatient admission
Assign to:: Telemetry
Physician / Group: Dr. Roberto Alejandre
Diagnosis: Fever of unknown origin
Reason for Telemetry: AICD/pacer dependent
Date to Stop Telemetry: 04/08/24
Time to Stop Telemetry: 11:00
Reason for Hospitalization: Fever of Unknown Origin
Expected length of stay greater than two midnights?: Yes
ELOS- Estimated Length of Stay in days: 3
I certify the patient meets the requirements for IP care: Yes
Code Status As Directed
Resuscitation Status: Full Code
Bisacodyl [Dulcolax] 10 mg RECTAL [id number] PRN
Docusate W/Senna [Senokot-S] 1 tablet PO BIDPRN PRN
Polyethylene Glycol Powder [Miralax] 17 grams PO DAILYPRN PRN
Activity As Directed
Activity Level: Out of Bed-Early Mobility
Vital Signs As Directed
Frequency: Per unit guidelines
04/05/24 12:07
PRN Pain Medication Management As Directed
May give lesser potent ordered pain med per pt: Yes
preference::
Protocol:: Medication orders for pain may be administered in a
manner that supports deferring to patient preference
when the pt is:
- Requesting an ordered lesser potent pain medication.
Least to most potent pain medications are defined
as: acetaminophen < NSAID < tramadol < opioids
(morphine, oxycodone, hydromorphone).
- Requesting a lesser dose of the same medication IF
ORDERED.
- Requesting a less intrusive route of administration
if both routes are prescribed by the provider (PO <
IV).
04/05/24 12:11
Echo 2D MMode Color/Doppler Routine
Reason for Study: History of Endocarditis, Fever of Unknown Origin
04/05/24 12:21
Dextrose 50%-Water [Dextrose 50% Syringe] 12.5 grams IV [id number] PRN
Glucagon [GlucaGen] 1 mg IM PRN PRN
Bedside Glucose Monitoring As Directed
Frequency: AC&HS
Additional Instructions:: Change to q6h if pt on TPN, tube feeding or not eating
04/05/24 12:23
Admit/Transfer Patient As Directed
Co-Sign Provider:
Level of Care: Inpatient admission
Assign to:: Telemetry
Physician / Group: Dr. Roberto Alejandre
Diagnosis: Fever of Unknown Origin
Reason for Telemetry: AICD/pacer dependent
Date to Stop Telemetry: 04/08/24
Time to Stop Telemetry: 11:00
Reason for Hospitalization: Fever of Unknown Origin
Expected length of stay greater than two midnights?: Yes
ELOS- Estimated Length of Stay in days: 3
I certify the patient meets the requirements for IP care: Yes
04/05/24 13:00
Piperacillin/Tazo 3.375 Gram [Zosyn] 3.375 gram in 50 ml IV Q6
04/05/24 13:32
CRP [C-Reactive Protein] Routine
ESR [Erythrocyte Sed Rate] Routine
04/05/24 Dinner
Cholesterol Lowering
At Your Request: Full Participation
Does patient need a safe tray?: No
Cholesterol Lowering: Sodium, 2 Gram
04/05/24 16:00
Acetaminophen [Tylenol] 650 mg PO Q4HWA
04/05/24 16:30
Insulin Aspart Corrective Low [Novolog Flexpen-Low Resistance] See Protocol SC AC
04/05/24 20:00
Apixaban [Eliquis] 5 mg PO BID
Carvedilol [Coreg] 6.25 mg PO BID
04/05/24 22:00
Tamsulosin [Flomax] 0.4 mg PO HS
04/06/24 06:00
Basic Metabolic Panel IN AM
Complete Blood Count/No Diff IN AM
04/06/24 07:00
Levothyroxine [Synthroid] 50 mcg PO DAILY@0700
04/06/24 08:00
Escitalopram Oxalate [Lexapro] 10 mg PO DAILY
Multivitamin [Theragran] 1 tablet PO DAILY
Pantoprazole [Protonix] 20 mg PO DAILY
Rosuvastatin Calcium [Crestor] 40 mg PO DAILY
Tolterodine Extended Release [Detrol LA] 4 mg PO DAILY
trkgqyygdop-oqlfwujim-ospcmvya [Trelegy Ellipta] 1 inh INH R DAILY
04/08/24 11:00
DC Protocol for Telemetry ONCE
DC Protocol for Telemetry ONCE
Abnormal Lab Results
04/05/24 04/05/24
07:59 09:58
WBC 11.6 H 10^3/uL
(4.8-10.8)
RBC 3.97 L 10^6/uL
(4.70-6.10)
Hgb 8.8 L g/dL
(13.0-18.0)
Hct 29.4 L %
(39.0-52.0)
MCV 74.1 L fL
(80.0-94.0)
MCH 22.2 L pg
(27.0-31.0)
MCHC 29.9 L g/dL
(33.0-37.0)
RDW 17.2 H %
(11.5-14.5)
Absolute Neuts (auto) 10.1 H 10^3/uL
(1.4-6.5)
Absolute Lymphs (auto) 0.6 L 10^3/uL
(1.2-3.4)
Absolute Monos (auto) 0.8 H 10^3/uL
(0.1-0.6)
Neutrophils % 87.6 H %
(42.2-75.2)
Lymphocytes % 4.8 L %
(20.5-51.1)
BUN 34 H mg/dl
(9-20)
Glucose 132 H mg/dl
(70-99)
Ur Occult Blood Reflex Trace A
(Negative)
Urine RBC 3-6 A /HPF
(0-2)
Urine Albumin (Reflex) 1+ A
(Neg - Trace)
04/05/24 07:59
04/05/24 07:59
Vital Signs
Initial and Last Documented VS:
Initial Vital Signs
Temp Pulse Resp BP Pulse Ox
100.0 F 98 20 137/79 94
04/05/24 06:33 04/05/24 06:33 04/05/24 06:33 04/05/24 06:33 04/05/24 06:33
Last Documented Vital Signs
Temp Pulse Resp BP Pulse Ox
100.0 F 76 21 115/66 94
04/05/24 06:33 04/05/24 11:15 04/05/24 11:15 04/05/24 11:00 04/05/24 06:33
MDM/Problems Addressed
MDM/Problems Addressed:
Although there is no clear source of fever the patient does appear mildly encephalopathic as a result we will admit him for further observation and monitoring. Certainly concerning the patient was in a prolonged course of IV and then oral
antibiotics completed yesterday that ultimately resulted in him being febrile and altered today. He does not appear meningitic, do not see indication for lumbar puncture at this time. Do not see reason to start antibiotics given that he is
otherwise stable
*Critical Care Note
Total Time (30-74mins, 75-104mins- exclusive of procedures): Not Applicable
ED Attending Note
-
Portions of this chart may have been created with voice recognition software.� Occasional wrong word or��sound alike� substitutions may have occurred due to the inherent limitations of voice recognition software.
Discharge Plan
Departure
Patient Disposition: Admit
Date of Disposition: 04/05/24
Time of Disposition: 10:47
Presentation/result/management discussed w/ accepting MD/DO: Hospitalist
Discharge Problem:
Fever of unknown origin (FUO), Acute encephalopathy
Interventions
Interventions:
*Risk Screen - Suicide Last Done: 04/05/24 08:15
*General Assessment Last Done: 04/05/24 08:15
*Neglect/Abuse Screening Last Done: 04/05/24 06:36
ED- Fall Risk Assessment Last Done: 04/05/24 08:15
*ED COVID-19 Vaccine History Last Done: 04/05/24 06:33
ED- Cardiac Assessment Last Done: 04/05/24 11:26
ED- Neurological Assessment Last Done: 04/05/24 08:15
ED- Pulmonary Assessment Last Done: 04/05/24 08:15
[2024-04-05] MEDS: TYLENOL 650 MG PO ×3 (07:54→23:57)
[2024-04-05 08:28] LABS: Hematocrit 29.4 % (39.0-52.0); Hemoglobin 8.8 g/dL (13.0-18.0); Mean Corp Hgb Conc. 29.9 g/dL (33.0-37.0); Mean Corpuscular Hgb 22.2 pg (27.0-31.0); Mean Corpuscular Volume 74.1 fL (80.0-94.0); Mean Platelet Volume 9.5 fL (7.4-10.4); Platelet Count 224 10^3/uL (130-400); Red Blood Cell Count 3.97 10^6/uL (4.70-6.10); Red Cell Dist. Width 17.2 % (11.5-14.5); White Blood Cell Count 11.6 10^3/uL (4.8-10.8)
[2024-04-05 08:35] LABS: Lactic Acid 0.8 mmol/L (0.7-2.0)
[2024-04-05 08:38] LABS: ALT (SGPT) 16 U/L (0-50); AST (SGOT) 20 U/L (17-59); Albumin 3.9 g/dl (3.5-5.0); Alkaline Phosphatase 55 U/L (38-126); Blood Urea Nitrogen 34 mg/dl (9-20); Calcium 9.6 mg/dl (8.4-10.2); Carbon Dioxide 29 mmol/L (22-30); Chloride 104 mmol/L (98-107); Glucose 132 mg/dl (70-99); Potassium 4.4 mmol/L (3.5-5.1); Sodium 139 mmol/L (135-145); Total Bilirubin 0.4 mg/dl (0.2-1.3); Total Protein 6.4 g/dl (6.3-8.2); eGFR 57.65
[2024-04-05 08:42] LABS: COVID-19 Antigen Negative (Negative)
[2024-04-05 08:54] LABS: NT-proBNP 1210 pg/ml; Troponin I < 0.012 ng/ml
[2024-04-05 10:10] LABS: % Basophils 0.2 % (0-2); % Eosinophils 0.4 % (0-6); % Immature Granulocytes 0.3 % (0-0.5); % Lymphocytes 4.8 % (20.5-51.1); % Monocytes 6.7 % (1.7-9.3); % Neutrophils 87.6 % (42.2-75.2); Absolute Eosinophils 0.1 10^3/uL (0-0.7); Absolute Lymphocytes 0.6 10^3/uL (1.2-3.4); Absolute Monocytes 0.8 10^3/uL (0.1-0.6); Absolute Neutrophils 10.1 10^3/uL (1.4-6.5); Nucleated Red Blood Cells % 0 % (-)
[2024-04-05 10:18] LABS: Urine Albumin 1+ (Neg - Trace); Urine Bilirubin Negative (Negative); Urine Character Clear (Clear); Urine Color Yellow; Urine Glucose Negative (Negative); Urine Ketone Negative (Negative); Urine Leukocyte Negative (Negative); Urine Nitrite Negative (Negative); Urine Occult Blood Trace (Negative); Urine Urobilinogen Negative (Neg - 1+); Urine pH 6.5 (5.0-9.0)
[2024-04-05 10:48] LABS: Urine Amorphous Seen; Urine Granular Cast 0-2 /LPF (0); Urine Squamous Cell 0-2 /LPF (Few)
[2024-04-05 10:55] LABS: Urine White Cell 0-2 /HPF (0-5)
--- NOTE | 2024-04-05 13:04 | HPS.HSE ---
Family Physician
-
Family Physician: Rodger Paul
Chief Complaint
-
Fever of Unknown Origin
History of Present Illness
73 year old male with a history of abdominal aortic aneurysm status post EVAR, CHF, OPD, CAD, Hypertension, Hyperlipidemia, Biventricular AICD, and recent bacteremia presents to the ED for evaluation of generalized weakness and fever. Patient has
been having a dry cough for around a week but has become increasingly weak and feverish the past day. Patient describes that he was being treated with IV antibiotics at [facility] this past summer in October due to gram-positive bacteremia with AICD lead
infection after AICD explant. Following his discharge from [facility], he was on IV antibiotics for 6 weeks then continued with a long course of oral cefuroxime. He states that he was told to stop taking the antibiotics yesterday by his doctor as they
said his bacteremia would be resolved by now. Currently, he reports no chest pain, leg swelling, nausea, vomiting, diarrhea, or shortness of breath. The only thing bothering him at the moment is the occasional dry cough, mild headache and mild
fever.
Medical History
Past Medical History
Past Medical History: Reports Asthma, CAD, CHF, COPD, HTN, Hypercholesterolemia, Hypothyroidism, NIDDM, [place], Psychiatric (Anxiety) and Other (Uri's Esophagus, Renal calculus)
Past Surgical History: Reports Cardiac (Coronary Stents, AICD), Orthopedic (Right and left rotator cuff surgery), Urological (Kidney Stone Removal) and Other (Hernia repair, AAA with repair, Cataracts)
Social History
Tobacco: Former Smoker
Alcohol: None
Drug: None
Personal:
Living: With Family
Employment: Retired
Family History
Family History: Not pertinent
Allergies / Home Medications
Allergies reflects when Allergies were last updated in [facility].
Home Medications with original date entered in [facility]
Allergy/Medication List:
Allergies
Allergy/AdvReac Type Severity Reaction Status Date / Time
No Known Allergies Allergy Verified 03/31/24 16:13
Home Medications
levothyroxine 50 mcg tablet (Levoxyl) 50 mcg PO DAILY Thyroid 09/17/12
escitalopram oxalate 10 mg tablet (Lexapro) 10 mg PO DAILY Mental Health 12/27/21
tamsulosin 0.4 mg capsule 0.4 mg PO HS Urinary issue 12/27/21
metformin 500 mg tablet 500 mg PO BID Diabetes 11/04/23
tolterodine 4 mg capsule,extended release 24 hr 4 mg PO DAILY Urinary Issue 11/04/23
therapeutic multivitamin 1 tab PO DAILY Supplement 12/07/23
carvedilol 6.25 mg tablet 6.25 mg PO BID Blood Pressure 01/19/24
pantoprazole 20 mg tablet,delayed release 20 mg PO DAILY Gastrointestinal Issue 01/19/24
rosuvastatin 20 mg tablet (Crestor) 40 mg PO DAILY High Cholesterol 01/19/24
apixaban 5 mg tablet (Eliquis) 5 mg PO BID Blood Clot Prevention/Tx 04/05/24
fluticasone fur. 100 mcg-umeclid 62.5 mcg-vilant 25 mcg inhalat.powder (Trelegy Ellipta) 1 inh inhalation R DAILY Lung/Breathing Issues 04/05/24
Review of Systems
-
History Source: Patient
A 12 point ROS was completed and negative except as noted: Yes
Constitutional: Reports Fever
EENT: Reports No Symptoms
Respiratory: Reports Cough; Denies Trouble Breathing
Cardiac: Denies Chest Pain, Palpitations or Syncope
Abdomen/GI: Denies Abdominal Pain, Nausea, Vomiting or Diarrhea
: Reports No Symptoms
Musculoskeletal: Reports No Symptoms
Skin: Reports No Symptoms
Neurological: Reports Headache (mild headache)
Endocrine: Reports No Symptoms
Hematologic/Lymphatic: Reports No Symptoms
Psych: Reports Calm
Physical Exam
Vital Signs
Vital Signs
Temp Pulse Resp BP Pulse Ox
100.0 F 76 21 115/66 94
04/05/24 06:33 12/24/24 11:15 04/05/24 11:15 04/05/24 11:00 04/05/24 06:33
Physical Exam
General: Well Developed, Well Nourished, No Apparent Distress and Comfortable
HEENT: NormoCephalic, Anicteric, Moist mucous membranes and Atraumatic
Respiratory: Clear and Non Labored Respirations
Cardiac: S1/S2 and Regular Rhythm
GI: Soft, Non Tender, Non Distended and Normal Bowel Sounds
Musculoskeletal: No Clubbing, No Cyanosis and No Edema
Skin: Warm
Neuro: Awake, Alert, Oriented and AO x 3
Psych: Calm
Laboratory Results
-
04/05/24 07:59
04/05/24 07:59
Laboratory Results
Lactic Acid Cancelled 04/05/24 11:30
Total Bilirubin 0.4 mg/dl (0.2-1.3) 04/05/24 07:59
AST 20 U/L (17-59) 04/05/24 07:59
ALT 16 U/L (0-50) 04/05/24 07:59
Alkaline Phosphatase 55 U/L (38-126) 04/05/24 07:59
Troponin I < 0.012 ng/ml 04/05/24 07:59
Data Reviewed
-
Diagnostic Radiology: Report Reviewed by me, Discussed with Physician and Discussed with Patient
Lab Data: Labs Reviewed by me, Discussed with Physician and Discussed with Patient
Impression/Plan
-
Assessment:
73 year old male with a history of abdominal aortic aneurysm status post EVAR, CHF, CAD, hypertension, hyperlipidemia, coronary artery disease, and biventricular AICD presents to the ED due to generalized weakness and fever. He recently was told to
stop his oral antibiotics for his history of bacteremia and attributes his fever to that. Currently, he is feeling much better and does not report feeling feverish but does still have a dry cough
PLAN:
#Fever of unknown origin
-Temperature at 100.0F
-No other vital signs abnormal
-CXR did not show any abnormalities
-Patient started on Zosyn and Vanc
-Awaiting blood cultures
-Mild Leukocytosis, will monitor how they look tomorrow
-Checking Echo due to his history of AICD lead infection
-Checking ESR and CRP
#Hyperlipidemia
-Continue Rosuvastatin
#GERD
-Continue pantoprazole
#HTN
-Continue Carvedilol
#History of CAD
-Continue Eliquis
#NIDDM
-Hold metformin
-Insulin sliding scale as needed
#COPD
-continue with home therapy
-monitor O2 levels and give O2 as needed
#Asthma
-Continue home meds
#Anxiety
-Continue Lexapro
#BPH
-Continue tamsulosin
Full Code
DVT Prophylaxis: Eliquis
[2024-04-05] MEDS: ZOSYN 50 IV ×3 (13:28→23:56)
[2024-04-05] MEDS: VANCOCIN 535 MG IV (14:30)
[2024-04-05 14:32] LABS: Erythrocyte Sed Rate 23 mm/hour (0-20)
[2024-04-05] MEDS: MOTRIN 400 MG PO (15:36)
[2024-04-05] MEDS: TYLENOL PO (16:11)
--- NOTE | 2024-04-05 17:24 | PTCARENOTE ---
04/05- Patient transferred and oriented to unit without issue. AAOX3, denies any needs at this time.
--- NOTE | 2024-04-05 17:26 | PHA.VAN.IN ---
Assessment
- Assessment
Renal Function: Appears elevated from baseline
Concomitant Antimicrobials: PIPERACILLIN/TAZOBACTAM
- Previous Dosing Experience
Previous Regimen: VANCO 1250 MG Q24H
Date of Regimen: 11/10/2023
Provided Trough of: 10.4
Provided AUC of: 375
Patient's SCR is: Elevated compared to previous dosing experience
Plan
- Plan
Initial / Loading Dose: VANCO 1750 MG X1
Monitoring: CONSIDERING ELEVATED SCR, RANDOM 04/06 @0600
Pharmacokinetics Vancomycin I
- -
Patient Age: 73
Patient Sex: Male (1)
Vancomycin Day #: 1
Indication: Other
Requesting Provider: DR. RAY
Height / Weight:
Height 5 ft 6.5 in
Actual Weight 63.503 kg
Pertinent Past Medical History: Asthma, CAD, CHF, COPD
- Vital Signs / Lab Results
Temp Pulse Resp BP Pulse Ox
100.0 F 74 16 130/54 94
04/05/24 06:33 04/05/24 17:00 04/05/24 17:00 04/05/24 17:00 04/05/24 06:33
Lab Results - Hematology
04/05/24
07:59
WBC 11.6 H
Lab Results - Chemistry
04/05/24
07:59
BUN 34 H
Creatinine 1.3
Albumin 3.9
04/05/24 04/05/24
07:59 11:30
Lactic Acid 0.8 Cancelled
Lab Results - Urine
04/05/24
09:58
Urine Nitrite (Reflex) Negative
Leukocyte Esterase Rfl Negative
Urine WBC (Reflex) 0-2
Ur Squamous Epith Cells 0-2
Microbiology Results
04/05/24 07:59 Influenza Types A & B (MARCELA) - Final
Nasal Swab Negative for Influenza A & B, NAAT
Negative results must be combined with clinical observations
and patient history.
Nucleic Acid Amplification test (NAAT)performed on the
[employer] platform.
[2024-04-05 17:53] LABS: Glucose - Point of Care 129 mg/dl (70-99)
[2024-04-05 18:02] LABS: Glucose - Point of Care 139 mg/dl (70-99)
[2024-04-05] MEDS: ELIQUIS 5 MG PO (20:24)
[2024-04-05] MEDS: COREG 6.25 MG PO (20:24)
[2024-04-05] MEDS: FLOMAX 0.4 MG PO (22:29)
[2024-04-06 03:20] VITALS: BP 119/68
[2024-04-06] MEDS: TYLENOL 650 MG PO ×3 (04:32→12:10)
[2024-04-06] MEDS: ZOSYN 50 IV ×2 (05:41→12:12)
[2024-04-06 06:00] VITALS: BMI 22.6
[2024-04-06] MEDS: SYNTHROID 50 MCG PO (06:30)
[2024-04-06 07:15] VITALS: BP 131/63
[2024-04-06] MEDS: SPIRIVA RESPIMAT 2.5 MCG 2 PUFF INH (07:31)
[2024-04-06] MEDS: SYMBICORT 80/4.5 MCG INHALER 2 PUFF INH (07:31)
[2024-04-06 07:41] LABS: Glucose - Point of Care 121 mg/dl (70-99)
[2024-04-06 08:11] LABS: Blood Urea Nitrogen 28 mg/dl (9-20); Calcium 9.1 mg/dl (8.4-10.2); Carbon Dioxide 25 mmol/L (22-30); Chloride 103 mmol/L (98-107); Estimated Creatinine Clearance 45 ml/min; Glucose 115 mg/dl (70-99); Potassium 4.3 mmol/L (3.5-5.1); Sodium 136 mmol/L (135-145); eGFR 57.65
[2024-04-06 08:47] LABS: Mean Corp Hgb Conc. 30.8 g/dL (33.0-37.0); Mean Corpuscular Hgb 21.9 pg (27.0-31.0); Mean Corpuscular Volume 71.2 fL (80.0-94.0); Platelet Count 176 10^3/uL (130-400); Red Blood Cell Count 3.65 10^6/uL (4.70-6.10); Red Cell Dist. Width 17.2 % (11.5-14.5); White Blood Cell Count 9.1 10^3/uL (4.8-10.8)
--- NOTE | 2024-04-06 09:18 | W.PN.HOSP.TC ---
Today's Communication/Plan
-
Patient's symptoms have seemed to resolve and he has no fever. Blood cultures did not grow any organism so will be safe to be discharged today.
Assessment / Plan
Assessment / Plan
Assessment:
73 year old male with a history of abdominal aortic aneurysm status post EVAR, CHF, CAD, hypertension, hyperlipidemia, coronary artery disease, and biventricular AICD presents to the ED due to generalized weakness and fever. He recently was told to
stop his oral antibiotics for his history of bacteremia and attributes his fever to that. He continues to feel much better and does not report feeling feverish but does still have a dry cough.
PLAN:
#Fever of unknown origin
-No fever overnight
-CXR did not show any abnormalities
-Echocardiogram:
1. Technically limited study
2. Normal left ventricular size and function, EF 55%
3. Trace mitral regurgitation with mildly dilated left atrium
4. Grossly normal aortic valve
5. Normal right heart with moderate pulmonary hypertension, 45-50 mmHg systolic
-Patient on Zosyn and Vanc
-Blood cultures negative for growth
-Mild Leukocytosis that has now resolved (11.6->9.1 now)
-ESR 23 and CRP 44
-Could be elevated due to chronic inflammation
#Hyperlipidemia
-Continue Rosuvastatin
#GERD
-Continue pantoprazole
#HTN
-Continue Carvedilol
#History of CAD
-Continue Eliquis
#NIDDM
-Hold metformin
-Insulin sliding scale as needed
#COPD
-continue with home therapy
-monitor O2 levels and give O2 as needed
#Asthma
-Continue home meds
#Anxiety
-Continue Lexapro
#BPH
-Continue tamsulosin
Full Code
DVT Prophylaxis: Eliquis
Anticipated Discharge: Today
Subjective/Interval History
-
Date of Service: April 06, 2024
Patient says that he is feeling much better from yesterday. He was able to sleep well in his room and did not feel feverish at all. He still complains of a lingering dry cough but no other complaints.
Objective Data
-
Labs:
Laboratory Results
04/06/24
07:24
WBC 9.1
Hgb 8.0 L
Hct 26.0 L
Plt Count 176 D
Sodium 136
Potassium 4.3
Chloride 103
Carbon Dioxide 25
BUN 28 H
Creatinine 1.3
Glucose 115 H
Calcium 9.1
Vital Signs:
Vital Signs
Temp Pulse Resp BP Pulse Ox
97.5 F 67 16 131/63 94
04/06/24 07:15 04/06/24 07:37 04/06/24 07:37 04/06/24 07:15 04/06/24 07:37
I&O
04/05/24 04/06/24 04/07/24
06:59 06:59 06:59
Intake Total 240 / 240
Balance 240 / 240
Review of Systems
-
History Source: Patient
Constitutional: Denies Fever or Fatigue
EENT: Reports No Symptoms Reported
Respiratory: Denies Cough, Trouble Breathing or Wheezing
Cardiac: Denies Chest Pain, Diaphoresis, Palpitations or Syncope
Abdomen/GI: Denies Abdominal Pain, Nausea, Vomiting or Diarrhea
Genitourinary: Reports No Symptoms
Skin: Denies Rash
Neuro: Reports Headache; Denies Weakness
Endocrine: Reports No Symptoms
Hematologic / Lymphatic: Reports No Symptoms
Allergy / Immunology: Reports No Symptoms
Physical Exam
-
General: Well Developed, Well Nourished, No Apparent Distress and Comfortable
HEENT: Normocephalic and Atraumatic
Respiratory: Clear to Auscultation and Non Labored Respirations
Cardiac: Regular Rhythm and S1/S2
GI: Soft, Nontender and Nondistended
Musculoskeletal: No Clubbing, No Cyanosis and No Edema
Skin: Warm
Neuro: Awake, Alert, Oriented, AO x 3 and No Motor Deficits
Psych: Calm
Data Reviewed
-
Labs: Labs Reviewed by me, Discussed with Physician and Discussed with Patient
[2024-04-06] MEDS: CRESTOR 40 MG PO (09:26)
[2024-04-06] MEDS: LEXAPRO 10 MG PO (09:26)
[2024-04-06] MEDS: THERAGRAN 1 TABLET PO (09:26)
[2024-04-06] MEDS: ELIQUIS 5 MG PO (09:26)
[2024-04-06] MEDS: DETROL LA 4 MG PO (09:27)
[2024-04-06] MEDS: COREG 6.25 MG PO (09:27)
[2024-04-06] MEDS: PROTONIX 20 MG PO (09:27)
--- NOTE | 2024-04-06 09:45 | PHA.VAN.FU ---
Vancomycin Assessment / Plan
- Assessment
Renal Function: Stable
WBC's are: Trending Down
In the past 24 hrs, patient has been: Afebrile
Concomitant Antimicrobials: Piperacillin-tazobactam
- Assessment - Therapeutic Drug Monitoring
Random Level: R = 12 ~ 15hrs post Vanc 1750mg
- Dosing Plan
Continue: Dose by level
Dosing by Level: Re-dose today (Vanc 750mg--11.6mg/kg)
- Monitoring Plan
Random Level: R in AM
- Follow Up
Pharmacy will continue to follow.
Vancomycin Follow UP
- -
Patient Age: 73
Patient Sex: Male (1)
Vancomycin Day #: 2
Indication: Other
Requesting Provider: DR. RAY
Height / Weight:
Height 5 ft 6.5 in
Actual Weight 64.438 kg
Pertinent Past Medical History: Asthma, CAD, CHF, COPD
- Vital Signs / Lab Results
Temp Pulse Resp BP Pulse Ox
97.5 F 67 16 131/63 94
04/06/24 07:15 04/06/24 07:37 04/06/24 07:37 04/06/24 09:27 04/06/24 07:37
Lab Results - Hematology
04/05/24 04/06/24
07:59 07:24
WBC 11.6 H 9.1
Lab Results - Chemistry
04/05/24 04/06/24
07:59 07:24
BUN 34 H 28 H
Creatinine 1.3 1.3
Estimated Creat Clear 45
Albumin 3.9
04/05/24 04/05/24
07:59 11:30
Lactic Acid 0.8 Cancelled
Lab Results - Urine
04/05/24
09:58
Urine Nitrite (Reflex) Negative
Leukocyte Esterase Rfl Negative
Ur Squamous Epith Cells 0-2
Microbiology Results
04/05/24 08:00 Blood Culture - Preliminary
Blood/Venous No Growth in 24 hours- Final report to follow
04/05/24 07:59 Blood Culture - Preliminary
Blood/Venous No Growth in 24 hours- Final report to follow
04/05/24 07:59 Influenza Types A & B (MARCELA) - Final
Nasal Swab Negative for Influenza A & B, NAAT
Negative results must be combined with clinical observations
and patient history.
Nucleic Acid Amplification test (NAAT)performed on the
[employer] platform.
Therapeutic Drug Monitoring
Random Vancomycin 12.0 ug/ml 04/06/24 07:24
[2024-04-06 11:21] VITALS: BP 121/61
[2024-04-06] MEDS: VANCOCIN 150 IV (11:21)
[2024-04-06 11:49] LABS: Iron 29 ug/dl (49-181)
[2024-04-06 11:59] LABS: Percent Saturation 8 % (20-50); Total Iron Binding Capacity 337 ug/dl (261-462)
[2024-04-06 12:17] LABS: Glucose - Point of Care 134 mg/dl (70-99)
[2024-04-06 12:27] LABS: Ferritin 16.3 ng/ml (17.9-464.0)
--- NOTE | 2024-04-06 12:30 | W.DCSUMMARY ---
Documented by User: Kenton Medrano MD, Resident 04/06/24 13:05
Discharge Summary
Discharge Data
Date of Admission: 04/05/24
Date of Discharge: 04/06/24
-
Pending Results: No
Hospital Course
Discharging Physician : Dr. Roberto Alejandre, Dr. Kenton Medrano
Disposition : Home
Primary care physician : Dr. Sam Rowe
Principal Discharge diagnosis : Fever of Unknown Origin
Chronic Discharge diagnosis : Asthma, CAD, CHF, COPD, Hypertension, Hypercholesterolemia, Hypothyroidism, NIDDM, [place], Anxiety, Peraza's Esophagus, Renal calculus
Hospital Course :
73 year old male with a history of abdominal aortic aneurysm status post EVAR, CHF, OPD, CAD, Hypertension, Hyperlipidemia, Biventricular AICD, and recent bacteremia presents to the [facility] ED on 04/05/2024 for evaluation of generalized weakness
and fever. Patient had been having a dry cough for around a week but had become increasingly weak and feverish. Patient was being treated with IV antibiotics at [facility] this past summer in October due to gram-positive bacteremia with AICD lead infection
after AICD explant. Following his discharge from [facility], he was on IV antibiotics for 6 weeks then continued with a long course of oral cefuroxime. He states that he was told to stop taking the antibiotics yesterday by his doctor as they said his
bacteremia would be resolved by now. He stated that his grandson had been ill recently with similar symptoms. In the ED he had mild leukocytosis and an x-ray was done of his chest which showed no signs of consolidation or pulmonary infiltrates.
Blood cultures were obtained and he was started on broad-spectrum antibiotics. Patient was started on supportive therapy and was monitored for any worsening symptoms. Patient experienced no symptoms and no fever overnight. His blood cultures were
negative for any growth and showed no signs of any bacteremia. The only abnormality on his labs was that he was found to be iron deficient. As patient was stable, he was discharged from the hospital with instructions to follow-up with his GI
doctor Dr. Paul for his iron deficiency and to monitor for any worsening symptoms like fever.
Important imaging findings :
CR Chest - 2 Views (04/05/2024)
No radiographic evidence of acute cardiopulmonary abnormality
Discharge Plan
-
Patient Disposition: Home (Routine Discharge)
Discharge Diagnosis/Procedures: Fever of Unknown Origin
Condition: Fair
Diet: Low Cholesterol
Activity: No restrictions and As tolerated
Driving Restrictions: As prior to admission
Blood Work: Repeat Iron panel as per GI Specialist
Referrals:
Rodger Paul MD [Family Provider] -
Sam Rowe MD [Active] -
Additional Discharge Medication Instructions: Follow up with PCP in 1 week
Follow up with Dr. Paul regarding Iron Deficiency and other GI procedures he wants done
Take 1 Tablet of Ferrous Sulfate 325 once a day
Prescriptions:
New
ferrous sulfate 325 mg (65 mg iron) tablet
325 mg PO DAILY 30 Days Qty: 30 1RF
Continued
levothyroxine [Levoxyl] 50 MCG tablet
50 mcg PO DAILY
tamsulosin 0.4 mg Capsule
0.4 mg PO HS
escitalopram oxalate [Lexapro] 10 mg Tablet
10 mg PO DAILY
tolterodine 4 mg capsule,extended release 24hr
4 mg PO DAILY
metformin 500 mg tablet
500 mg PO BID
therapeutic multivitamin Tablet
1 tab PO DAILY
carvedilol 6.25 mg Tablet
6.25 mg PO BID
pantoprazole 20 mg Tablet,Delayed Release (Dr/Ec)
20 mg PO DAILY
rosuvastatin [Crestor] 20 mg Tablet
40 mg PO DAILY
Trelegy Ellipta 100-62.5-25 mcg Blister With Device
1 inh INHALATION R DAILY
Eliquis 5 mg tablet
5 mg PO BID
Discharge Orders:
Discharge Patient (As Directed); Ordered 04/06/24
Ordered By: Kenton Medrano
Discharge Date and Time
Print Language: EGYPTIAN

Documented by User: Roberto Alejandre DO 04/06/24 13:23
Discharge Summary
Discharge Data
Date of Admission: 04/05/24
Date of Discharge: 04/06/24
Discharge Plan
-
Patient Disposition: Home (Routine Discharge)
Discharge Diagnosis/Procedures: Fever of Unknown Origin
Condition: Fair
Diet: Low Cholesterol
Activity: No restrictions and As tolerated
Driving Restrictions: As prior to admission
Blood Work: Repeat Iron panel as per GI Specialist
Referrals:
Rodger Paul MD [Family Provider] -
Sam Rowe MD [Active] -
Additional Discharge Medication Instructions: Follow up with PCP in 1 week
Follow up with Dr. Paul regarding Iron Deficiency and other GI procedures he wants done
Take 1 Tablet of Ferrous Sulfate 325 once a day
Prescriptions:
New
ferrous sulfate 325 mg (65 mg iron) tablet
325 mg PO DAILY 30 Days Qty: 30 1RF
Continued
levothyroxine [Levoxyl] 50 MCG tablet
50 mcg PO DAILY
tamsulosin 0.4 mg Capsule
0.4 mg PO HS
escitalopram oxalate [Lexapro] 10 mg Tablet
10 mg PO DAILY
tolterodine 4 mg capsule,extended release 24hr
4 mg PO DAILY
metformin 500 mg tablet
500 mg PO BID
therapeutic multivitamin Tablet
1 tab PO DAILY
carvedilol 6.25 mg Tablet
6.25 mg PO BID
pantoprazole 20 mg Tablet,Delayed Release (Dr/Ec)
20 mg PO DAILY
rosuvastatin [Crestor] 20 mg Tablet
40 mg PO DAILY
Trelegy Ellipta 100-62.5-25 mcg Blister With Device
1 inh INHALATION R DAILY
Eliquis 5 mg tablet
5 mg PO BID
Discharge Orders:
Discharge Patient (As Directed); Ordered 04/06/24
Ordered By: Kenton Medrano
Discharge Date and Time
Print Language: EGYPTIAN
[2024-04-06 12:58] LABS: Folate 19.4 ng/ml (2.76-20); Vitamin B12 400 pg/ml (239-931)
--- NOTE | 2024-04-06 13:24 | CM ---
Initial assessment completed
Pharmacy verified: [facility] @ [address]
Lives with in a multilevel home; 3 steps to enter; 12-13 steps between floors; inside railings on stairs; powder room 1st floor; 2nd floor bath has stall shower
Independent with ambulation, stairs, and ADLs; drives; retired
will transport home
SNF stay @ [facility] this year followed by home health services
Plan: Discharge to home today; no needs
[2024-04-06 15:08] VITALS: BP 126/59
== END 2024-04-06 16:06 | disposition home or self-care (01) | DRG 153 ==
LOC: 4 WEST ACU 12:36
PROVIDERS: Physician Assistant; ADMITTING PHYSICIAN Internal Medicine; EMERGENCY PHYSICIAN Emergency Medicine; FAMILY PHYSICIAN Specialist
DX: J06.9 Acute upper respiratory infection, unspecified (principal); I50.32 Chronic diastolic (congestive) heart failure; G93.40 Encephalopathy, unspecified; R78.81 Bacteremia; R53.1 Weakness; E78.00 Pure hypercholesterolemia, unspecified; E03.9 Hypothyroidism, unspecified; E11.9 Type 2 diabetes mellitus without complications; R50.9 Fever, unspecified; B96.89 Other specified bacterial agents as the cause of diseases classified elsewhere; N40.0 Benign prostatic hyperplasia without lower urinary tract symptoms; I25.5 Ischemic cardiomyopathy; F41.9 Anxiety disorder, unspecified; D50.9 Iron deficiency anemia, unspecified; K21.9 Gastro-esophageal reflux disease without esophagitis; K22.70 Barrett's esophagus without dysplasia; J44.9 Chronic obstructive pulmonary disease, unspecified; I27.20 Pulmonary hypertension, unspecified; I25.10 Atherosclerotic heart disease of native coronary artery without angina pectoris; I11.0 Hypertensive heart disease with heart failure; Z86.79 Personal history of other diseases of the circulatory system; Z87.891 Personal history of nicotine dependence; Z95.5 Presence of coronary angioplasty implant and graft; Z87.442 Personal history of urinary calculi; I25.2 Old myocardial infarction; Z87.01 Personal history of pneumonia (recurrent); Z79.01 Long term (current) use of anticoagulants; Z79.890 Hormone replacement therapy; Z79.51 Long term (current) use of inhaled steroids; Z79.84 Long term (current) use of oral hypoglycemic drugs; Z11.52 Encounter for screening for COVID-19
CPT/HCPCS: 93308; 71046; 80048; 80053; 80202; 81003; 81015; 82607; 82728; 82746; 82962; 83540; 83550; 83605; 83880; 84484; 85025; 85027; 85652; 86140; 87040; 87070; 87502; 87811; 93321; 93325; 94640; 99285

== ENCOUNTER 2024-04-09 09:51 | Inpatient (IN) | payer MEDICARE, OTHER, SELFPAY ==
[2024-04-09] VITALS (15 sets, daily range): BP systolic 128–174; BP diastolic 62–137; BMI 23.7; BMI 22.5
[2024-04-09 03:47] LABS: Hematocrit 28.9 % (39.0-52.0); Hemoglobin 8.7 g/dL (13.0-18.0); Mean Corp Hgb Conc. 30.1 g/dL (33.0-37.0); Mean Corpuscular Hgb 21.6 pg (27.0-31.0); Mean Corpuscular Volume 71.9 fL (80.0-94.0); Mean Platelet Volume 9.5 fL (7.4-10.4); Platelet Count 254 10^3/uL (130-400); Red Blood Cell Count 4.02 10^6/uL (4.70-6.10); Red Cell Dist. Width 17.4 % (11.5-14.5); White Blood Cell Count 7.5 10^3/uL (4.8-10.8)
[2024-04-09 03:53] LABS: COVID-19 Antigen Negative (Negative)
[2024-04-09 03:57] LABS: ALT (SGPT) 16 U/L (0-50); AST (SGOT) 22 U/L (17-59); Albumin 4.1 g/dl (3.5-5.0); Alkaline Phosphatase 55 U/L (38-126); Blood Urea Nitrogen 28 mg/dl (9-20); Calcium 9.5 mg/dl (8.4-10.2); Carbon Dioxide 27 mmol/L (22-30); Chloride 105 mmol/L (98-107); Estimated Creatinine Clearance 41 ml/min; Glucose 142 mg/dl (70-99); Sodium 143 mmol/L (135-145); Total Bilirubin 0.3 mg/dl (0.2-1.3); Total Protein 6.8 g/dl (6.3-8.2); eGFR 52.74
[2024-04-09 05:30] LABS: Lactic Acid 1.2 mmol/L (0.7-2.0)
--- NOTE | 2024-04-09 06:35 | ED.GENMED ---
History of Present Illness
General
Chief Complaint: Breathing Problem
Time Seen by Provider: 04/09/24 04:02
History of Present Illness
History of Present Illness:
73-year-old male with history of PE on Eliquis, hyperlipidemia, hypertension, asthma/COPD, CHF, AAA status EVAR, history of AICD status post removal after concern of infection presenting to the emergency department for difficulty breathing. Patient
reports increased difficulty breathing for the past several days, was recently admitted to the hospital on 04/05 for weakness and fever, thought to have pneumonia. Patient received antibiotics, however no specific infiltrates on chest x-ray, which
discharged home off of antibiotics . Tonight, had increased occultly breathing, called the medics. On medics arrival, was hypoxic. Patient is not on oxygen at home. He reports compliance with his medications including Eliquis. He reports
persistent cough, productive, denies fever. He is somewhat of a limited historian. Denies abdominal pain or GI symptoms. Denies chest pain. Denies additional acute complaints
Past History
Past History
ED Past Medical History: Asthma, CAD, CHF, COPD, GERD, HTN, Hypercholesterolemia, NIDDM, [place], Hypothyroidism, Psychiatric (Anxiety), Other (Peraza's Esophagus, Renal calculus, ) and Other ( Heart class III CHF, Back pain, Migraines, PNA, )
ED Past Surgical History: Cardiac (Coronary stents, AICD), Orthopedic (Right and left rotator cuff surgery), Urological (Kidney stone removal) and Other (Hernia repair, AAA with repair, Cataracts, )
Social History
Tobacco: Former smoker
Alcohol: None
Drug: None
Personal:
Living: with family
Employment: Retired
Family History
Family History: Other (Noncontributory)
Phy Exam
Physical Exam
Physical Exam:
General: No clinical signs of dehydration
HEENT: protecting airway
Neck: appears supple
CV: Normal heart rate, regular rhythm, no evidence of cyanosis
Resp: No accessory muscle use, no increased work of breathing, diminished air movement bilaterally
Abd: Soft and non-distended, no tenderness to palpation
Extremities: No deformities, no swelling, no erythema
Neuro: alert, no focal neurologic deficit
: deferred
Rectal: deferred
Psych: Normal affect
Skin: Intact
Scores
Heart Failure Risk
Heart Failure Risk Score: Not Applicable
Sepsis
Sepsis Screening
Sepsis Assessment: Sepsis Ruled Out
Sepsis Screen
Sepsis Screen: Sepsis Ruled Out
Date: 04/10/24
Time: 17:08
Course
Orders/Labs/Results
Orders:
Orders
04/09/24 03:25
Electrocardiogram (*1) Urgent
Reason for Study: Other
Other Reason for Exam: Possible Sepsis
Cardiac Monitoring- Treatment ONCE
IV Insert/Care/Rem.- Treatment PRN
O2 Therapy [RESP] Urgent
Titrate/Wean O2 to maintain O2 sat greater than (%): 93
Special Instructions: TO MAINTAIN CONTINUOUS O2 SATS > OR = 93%
Pulse Ox/cont/shift [RESP] Urgent
Quantity: 1
Special Instructions: CONTINUOUS
04/09/24 03:26
EKG- Treatment ONCE
04/09/24 03:27
Complete Blood Count/With Diff Urgent
Comprehensive Metabolic Panel Urgent
Manual Differential Urgent
04/09/24 03:29
COVID-19 Antigen Urgent
Source: Nasal Swab
Influenza A+B Rapid Molecular Urgent
ALONSO Source: Nasal Swab
Specimen Description:
04/09/24 04:39
CT Chest Pe Study Urgent
Comment:
Reason For Exam: SOB, hypoxia
04/09/24 05:04
Lactic Acid Q4H
Comment: ON ICE, CANCEL 2ND ORDER IF FIRST LACTIC ACID LEVEL <2
04/09/24 06:45
Cefepime HCl [Maxipime] 2,000 mg IV NOW STA
04/09/24 06:57
PTT Urgent
04/09/24 07:09
Heparin 76687 Units/250 ml 25,000 units in 250 ml .ROUTE .STK-MED
04/09/24 07:40
Heparin 5,200 units IV NOW STA
04/09/24 08:00
Flush (0.9% Sodium Chloride) [Flush (Nss)] See Dose Instructions IV PER PROTOCOL
Heparin 5,200 units IV PRN PRN
Heparin [id number] Units/250 ml 25,000 units in 250 ml IV PER PROTOCOL
Weight to be used for heparin protocol in kilograms (kg):: 65.6
Protocol:: DVT/PE
PTT Goal Range to be used:: PTT 73 to 111 seconds
Order type:: Initial
INITIAL Infusion Dose (UNITS/KG/hr) & then follow protocol:: 18 units/kg/hr
Infusion Dose in UNITS/hr & then follow protocol (UNITS/hr):: 1,200
INFUSION RATE in mL/hr & then follow protocol (mL/hr):: 12
For DVT/PE algorithm, re-bolus for low PTT?: Yes
PTT less than or equal to 64 seconds:: Re-bolus 80 units/kg (max 10,000units). Increase by 300 units/hr
(+ 3mL/hr)
PTT 64.1 to 72.9 seconds:: Re-bolus 40 units/kg (max 5,000 units). Increase by 100 units/hr
(+ 1mL/hr)
PTT 73 to 111 seconds:: Target Range. No change in rate.
PTT 111.1 to 130.9 seconds:: Decrease rate by 100 units/hr (- 1 mL/hr)
PTT 131 to 199.9 seconds:: HOLD for 1 hr. Then decrease by 200 units/hr (- 2mL/hr)
PTT greater than or equal to 200 seconds:: HOLD for 2 hrs & Notify Provider. Then decrease by 300 units/hr
(- 3mL/hr)
Lab follow-up:: Each change, PTT q6h until 2 consecutive are therapeutic. Then
PTT daily.
04/09/24 08:01
Heparin 2,600 units IV PRN PRN
04/09/24 08:13
Vancomycin [Vancocin] 1,500 mg 0.9% Sodium Chloride 500 ml [Nss] 500 ml IV NOW
04/09/24 09:37
Admit/Transfer Patient As Directed
Co-Sign Provider:
Level of Care: Inpatient admission
Assign to:: Telemetry
Physician / Group: Roberto Alejandre
Diagnosis: Hypoxemia
Reason for Telemetry: Arrhythmia
Date to Stop Telemetry: 04/12/24
Time to Stop Telemetry: 11:00
Reason for Hospitalization: Acute hypoxemic respiratory insufficiency due to PE, Eliquis failure, pneumonia
Expected length of stay greater than two midnights?: Yes
ELOS- Estimated Length of Stay in days: 3
I certify the patient meets the requirements for IP care: Yes
PRN Pain Medication Management As Directed
May give lesser potent ordered pain med per pt: Yes
preference::
Protocol:: Medication orders for pain may be administered in a
manner that supports deferring to patient preference
when the pt is:
- Requesting an ordered lesser potent pain medication.
Least to most potent pain medications are defined
as: acetaminophen < NSAID < tramadol < opioids
(morphine, oxycodone, hydromorphone).
- Requesting a lesser dose of the same medication IF
ORDERED.
- Requesting a less intrusive route of administration
if both routes are prescribed by the provider (PO <
IV).
04/09/24 09:39
Code Status As Directed
Resuscitation Status: Full Code
04/09/24 09:44
Add On- LAB Routine
Tests Added?: Procalcitonin
Accucheck [Bedside Glucose Monitoring] As Directed
Frequency: AC&HS
04/09/24 09:45
US Legs, Bilateral [US Periph Venous LOWER Ext Jonh] Urgent
Comment:
Reason For Exam: Assess for DVT
04/09/24 Lunch
Regular
At Your Request: Full Participation
04/09/24 10:10
Procalcitonin Routine
04/09/24 11:30
Insulin Aspart Corrective Low [Novolog Flexpen-Low Resistance] See Protocol SC AC
04/09/24 12:43
Acetaminophen [Tylenol] 650 mg PO Q4HPRN PRN
Bisacodyl [Dulcolax] 10 mg RECTAL [id number] PRN
Docusate W/Senna [Senokot-S] 1 tablet PO BIDPRN PRN
Ipratropium/Albuterol Sulfate [Duoneb] 3 ml INH R Q4HPRN PRN
Polyethylene Glycol Powder [Miralax] 17 grams PO DAILYPRN PRN
04/09/24 12:43
Echo 2D MMode Color/Doppler Routine
Reason for Study: AF
Activity As Directed
Activity Level: Out of Bed-Early Mobility
Intake/ Output As Directed
Frequency: Per unit guidelines
Pneumatic Compression Sleeves As Directed
Type: Knee high
Vital Signs As Directed
Frequency: Per unit guidelines
Weight As Directed
Frequency: Daily
O2 Therapy [RESP] Routine
Titrate/Wean O2 to maintain O2 sat greater than (%): 90
DX Deep Vein Thrombosis Video Routine
04/09/24 14:00
CefTRIAXone [Rocephin] 1,000 mg IV Q24H
04/09/24 14:25
NT-proBNP Routine
PTT Urgent
Troponin I Q6H
04/09/24 20:00
Carvedilol [Coreg] 6.25 mg PO BID
04/10/24 06:00
Levothyroxine [Synthroid] 50 mcg PO DAILY@0600
04/10/24 06:31
Basic Metabolic Panel IN AM
Complete Blood Count/With Diff IN AM
Magnesium IN AM
Troponin I Q6H
04/10/24 08:00
Azithromycin [Zithromax] 500 mg PO DAILY
Budesonide/Formoterol 80/4.5 [Symbicort 80/4.5 Mcg Inhaler] 2 puff INH R BID
Escitalopram Oxalate [Lexapro] 10 mg PO DAILY
Ferrous Sulfate [Feosol] 325 mg PO DAILY
Multivitamin [Theragran] 1 tablet PO DAILY
Pantoprazole [Protonix] 20 mg PO DAILY
Rosuvastatin Calcium [Crestor] 40 mg PO DAILY
04/12/24 11:00
DC Protocol for Telemetry ONCE
Abnormal Lab Results
04/09/24
03:27
RBC 4.02 L 10^6/uL
(4.70-6.10)
Hgb 8.7 L g/dL
(13.0-18.0)
Hct 28.9 L %
(39.0-52.0)
MCV 71.9 L fL
(80.0-94.0)
MCH 21.6 L pg
(27.0-31.0)
MCHC 30.1 L g/dL
(33.0-37.0)
RDW 17.4 H %
(11.5-14.5)
Abs Neuts (Manual) 6.7 H 10^3/uL
(1.4-6.5)
Segmented Neutrophils 80 H %
(42-75)
Band Neutrophils 10 H %
(0-3)
Lymphocytes (Manual) 5 L %
(20-51)
BUN 28 H mg/dl
(9-20)
Creatinine 1.4 H mg/dL
(0.7-1.3)
Glucose 142 H mg/dl
(70-99)
04/09/24 03:27
04/09/24 03:27
Vital Signs
Initial and Last Documented VS:
Initial Vital Signs
Pulse Resp Pulse Ox
101 33 94
04/09/24 03:16 04/09/24 03:16 04/09/24 03:16
Last Documented Vital Signs
Temp Pulse Resp BP Pulse Ox
98.5 F 66 18 135/60 93
04/10/24 14:41 04/10/24 14:41 04/10/24 14:41 04/10/24 14:41 04/10/24 14:41
MDM/Problems Addressed
MDM/Problems Addressed:
73-year-old male with history of PE on Eliquis, hyperlipidemia, hypertension, asthma/COPD, CHF, AAA status EVAR, history of AICD status post removal after concern of infection presenting for difficulty breathing and hypoxia. Vital signs on arrival
significant for tachypnea, tachycardia, stable on supplemental O2.
On exam, patient is chronically ill-appearing, diminished air movement bilaterally to lung chen. On review of EMR, recent hospitalization for similar symptoms, thought to have a pneumonia at that time, however chest x-ray was clear. Patient was
discharged 2 days ago, however is still becoming hypoxic. Unclear etiology of this hypoxia. Known history of PE in the past. For this reason feel patient warrants advanced imaging of his chest to rule out PE despite anticoagulation on Eliquis.
Infection is also consideration, plan for laboratory analysis and again CT imaging. EKG obtained, nonischemic, patient without chest pain, without concern for primary cardiac pathology. Will continue to closely monitor.
06:45 - Labs without leukocytosis. However CT does show concern for multifocal pneumonia in the lower lobes bilaterally. In addition there is a right lower lobe segmental and subsegmental pulmonary artery emboli without evidence of right heart
strain. Given PE despite anticoagulation, will start heparin drip. Did discuss with patient - confirms compliance of Eliquis daily as intrusted. Will also start on broad-spectrum antibiotics. The patient warrants admission given persistent oxygen
requirements and new findings of acute PE as well as pneumonia. Patient will be admitted to hospitalist service.
*EKG
Interpreted by ED Provider?: Yes
EKG Intrepretation Date: 04/09/24
Interpretation: normal
Heart Rate: 99
Rate: normal
Rhythm: sinus
[place]: normal axis
Interval: normal interval
QRS Pattern: normal QRS
Ischemia: non-specific ST changes
*Critical Care Note
Total Time (30-74mins, 75-104mins- exclusive of procedures): 41
comment:
The high probability of a clinically significant, sudden or life threatening deterioration of the cardio-respiratory system(s) required my full and direct attention, intervention and personal management. The aggregate critical care time was 41
minutes. This time is in addition to time spent performing reported procedures but includes the following:
[x] Data Review and interpretation
[x] Patient assessment and monitoring of vital signs
[x] Documentation
[x] Medication orders and management
ED Attending Note
-
Portions of this chart may have been created with voice recognition software.� Occasional wrong word or��sound alike� substitutions may have occurred due to the inherent limitations of voice recognition software.
Discharge Plan
Departure
Patient Disposition: Admit
Date of Disposition: 04/09/24
Time of Disposition: 07:12
Presentation/result/management discussed w/ accepting MD/DO: Hospitalist
Condition: Fair
Discharge Problem:
Multifocal pneumonia, Pulmonary embolism, Shortness of breath
Interventions
Interventions:
*Risk Screen - Suicide Last Done: 04/09/24 13:31
*General Assessment Last Done: 04/09/24 03:23
*Neglect/Abuse Screening Last Done: 04/09/24 12:36
ED- Fall Risk Assessment Last Done: 04/09/24 12:36
*ED COVID-19 Vaccine History Last Done: 04/09/24 03:23
*Nursing Disposition Last Done: 04/09/24 12:36
ED- Cardiac Assessment Last Done: 04/09/24 06:30
ED- Pulmonary Assessment Last Done: 04/09/24 06:30
Discharge Date and Time
Discharge Date/Time: 04/09/24 12:37
[2024-04-09 06:45] LABS: Absolute Neutrophils -Man Diff 6.7 10^3/uL (1.4-6.5); Anisocytosis 1+; Band Neutrophils 10 % (0-3); Eosinophils 3 % (0-6); Lymphocytes 5 % (20-51); Monocytes 2 % (2-9); Normal RBC Morphology No; Platelets Checked Yes; Segmented Neutrophils 80 % (42-75); Total Cells Counted 100; Toxic Granulation 1+
[2024-04-09 06:46] LABS: Hypochromasia 1+; Ovalocytes 1+; Target Cells Occasional
[2024-04-09 07:15] LABS: APTT 33.5 Sec (23.4-35.0)
[2024-04-09] MEDS: MAXIPIME 2000 MG IV (07:26)
[2024-04-09] MEDS: HEPARIN 25000 UNITS/250 ML IV (07:50)
[2024-04-09] MEDS: HEPARIN 5200 UNITS IV (07:51)
[2024-04-09] MEDS: VANCOCIN 530 MG IV (08:29)
--- NOTE | 2024-04-09 09:34 | HPS.HSE ---
Family Physician
-
Family Physician: Rodger Paul
Chief Complaint
-
Shortness of breath
History of Present Illness
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 Was recently
hospitalized here with subjective fever and URI symptoms. Infectious workup at the time unremarkable. Was discharged and subsequently developed worsening shortness of breath. Upon arrival was hypoxemic and required 3 L via NC. Otherwise afebrile
and hemodynamically stable. Labs with hemoglobin 8.7, MCV 71.9, creatinine 1.4, BUN 28. COVID testing negative, flu testing negative. CT chest with contrast showed right lower lobe segmental and subsegmental pulmonary artery emboli without signs
of right heart strain as well as findings consistent with multifocal pneumonia that was worst in the lower lobes bilaterally. Was started on IV vancomycin and cefepime. Home Eliquis held and transition to IV heparin drip for presumed
anticoagulation failure.
Medical History
Past Medical History
Past Medical History: Reports CAD, CHF (recEF), COPD, GERD, Hypothyroidism and NIDDM
Past Surgical History: Reports Cardiac (PCI) and Other (EVAR)
Social History
Tobacco: Former Smoker
Alcohol: None
Drug: None
Family History
Family History: Not pertinent
Allergies / Home Medications
Allergies reflects when Allergies were last updated in [facility].
Home Medications with original date entered in [facility]
Allergy/Medication List:
Allergies
Allergy/AdvReac Type Severity Reaction Status Date / Time
No Known Allergies Allergy Verified 03/31/24 16:13
Home Medications
levothyroxine 50 mcg tablet (Levoxyl) 50 mcg PO DAILY Thyroid 09/17/12
escitalopram oxalate 10 mg tablet (Lexapro) 10 mg PO DAILY Mental Health 12/27/21
therapeutic multivitamin 1 tab PO DAILY Supplement 12/07/23
carvedilol 6.25 mg tablet 6.25 mg PO BID Blood Pressure 01/19/24
pantoprazole 20 mg tablet,delayed release 20 mg PO DAILY Gastrointestinal Issue 01/19/24
rosuvastatin 20 mg tablet (Crestor) 40 mg PO DAILY High Cholesterol 01/19/24
apixaban 5 mg tablet (Eliquis) 5 mg PO BID Blood Clot Prevention/Tx 04/05/24
fluticasone fur. 100 mcg-umeclid 62.5 mcg-vilant 25 mcg inhalat.powder (Trelegy Ellipta) 1 inh inhalation R DAILY Lung/Breathing Issues 04/05/24
ferrous sulfate 325 mg (65 mg iron) tablet 325 mg PO DAILY Iron Deficiency 30 days #30 tabs 04/06/24
Review of Systems
-
A 12 point ROS was completed and negative except as noted: Yes
Constitutional: Reports No Symptoms
EENT: Reports No Symptoms
Respiratory: Reports See HPI
Cardiac: Reports No Symptoms
Abdomen/GI: Reports No Symptoms
: Reports No Symptoms
Musculoskeletal: Reports No Symptoms
Skin: Reports No Symptoms
Neurological: Reports No Symptoms
Endocrine: Reports No Symptoms
Hematologic/Lymphatic: Reports No Symptoms
Psych: Reports No Symptoms
Physical Exam
Vital Signs
Vital Signs
Temp Pulse Resp BP Pulse Ox
98.9 F 75 22 135/86 99
04/09/24 03:18 04/09/24 08:45 04/09/24 08:45 04/09/24 08:00 04/09/24 08:45
Physical Exam
General: Well Developed, Well Nourished, No Apparent Distress, Comfortable and Conversant
HEENT: NormoCephalic, Anicteric, Moist mucous membranes, Atraumatic and PERRLA
Respiratory: Clear, Non Labored Respirations and Other (Reduced sounds); No Wheezes, Rhonchi, Crackles or Accessory Resp Muscle Use
Cardiac: S1/S2 and Regular Rhythm; No Murmur, Rub, Gallop, Peripheral Edema or JVD
GI: Soft, Non Tender, Non Distended and Normal Bowel Sounds
Musculoskeletal: No Clubbing, No Cyanosis and Normal Gait & Station
Skin: Warm and Dry; No Rash or Jaundice
Neuro: AO x 3 and Nonfocal/grossly intact; No Tremors
Psych: Calm
Laboratory Results
-
04/09/24 03:27
04/09/24 03:27
Laboratory Results
APTT 33.5 Sec (23.4-35.0) 04/09/24 06:57
Lactic Acid 1.2 mmol/L (0.7-2.0) 04/09/24 05:04
Total Bilirubin 0.3 mg/dl (0.2-1.3) 04/09/24 03:27
AST 22 U/L (17-59) 04/09/24 03:27
ALT 16 U/L (0-50) 04/09/24 03:27
Alkaline Phosphatase 55 U/L (38-126) 04/09/24 03:27
Data Reviewed
-
CT Scan: Report Reviewed by me, Discussed with Physician (Hematology, ED attending) and Discussed with Patient
Lab Data: Labs Reviewed by me and Discussed with Patient
Impression/Plan
-
#Acute hypoxemic respiratory insufficiency
#Acute low risk PE/Eliquis failure
#Multifocal community-acquired pneumonia
-Developed worsening dyspnea after recent discharge, CT with findings of PE and pneumonia
-CT was without evidence of right heart strain, unable to rule out underlying mass per CT read
-Currently on Eliquis twice daily for history of PE, states he is compliant with medication
-Required 4 L supplemental oxygen on arrival; no fever or leukocytosis here
-Remains hemodynamically stable, no indication for intravascular interventions
Plan
-Continue with IV heparin drip, hematology consult for presumed DOAC failure
-Transition antibiotics to IV ceftriaxone and azithromycin
-Continue with home Trelegy, start as needed bronchodilators
-Add on procalcitonin, troponin, BNP; trend CBC and temperature curve
-Order lower extremity duplex ultrasound to assess for DVT
-Plan to repeat CT thorax to assess for lung mass
-Order TTE to assess RV systolic function
-Wean oxygen for SpO2 goal >90%
-Heme/Onc consult
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
#CAD s/p PCI
#S/P AICD extraction
-Home GDMT includes carvedilol, high intensity statin
-Not currently on antiplatelet therapy due to DOAC for history of PE
-Not currently on any standing dose of loop diuretic
-Appears euvolemic
#NIDDM
-Not currently on any antihyperglycemic regimen
-Will start ISS with Accu-Cheks
#Hypothyroidism
-Unclear etiology, home meds include 50 mcg levothyroxine daily
-No signs or symptoms of thyroid dysfunction at this time
#Iron deficiency anemia
-Diagnosed on recent hospital stay, was planned to have outpatient colonoscopy soon
-Will continue with oral iron and trend CBC
#COPD
-No recent PFTs; Home meds include Trelegy Ellipta
-No signs or symptoms of COPD flare here
#GERD C/B Peraza's esophagus
-Unknown if significant dysplasia seen on pathology
-Home medications include PPI regimen
#AAA s/p EVAR
-Remains on high intensity statin
DVT prophylaxis: Heparin drip
Diet: Regular
CODE STATUS: Full code
Disposition: Admit to telemetry
[2024-04-09 10:43] LABS: Procalcitonin 0.73 ng/ml (0.0-0.25)
--- NOTE | 2024-04-09 13:37 | PTCARENOTE ---
pt admit form ed. aaox3. flat affect. 3lnc decreased breath sounds. heparin gtt running as ordered. pt taken to U/S. pt states no pain.
[2024-04-09] MEDS: NOVOLOG FLEXPEN-LOW RESISTANCE SC (14:08)
[2024-04-09] MEDS: STERILE WATER FOR INJECTION 10 ML IV (14:13)
[2024-04-09] MEDS: ROCEPHIN 1000 MG IV (14:13)
[2024-04-09 14:48] LABS: APTT 97.6 Sec (23.4-35.0)
[2024-04-09 15:10] LABS: NT-proBNP 3050 pg/ml
[2024-04-09 17:28] LABS: Glucose - Point of Care 185 mg/dl (70-99)
[2024-04-09] MEDS: NOVOLOG FLEXPEN-LOW RESISTANCE 1 UNITS SC (18:10)
[2024-04-09] MEDS: COREG 6.25 MG PO (19:58)
[2024-04-09] MEDS: TYLENOL 650 MG PO (19:58)
[2024-04-09 21:08] LABS: APTT 79.8 Sec (23.4-35.0)
[2024-04-09 21:19] LABS: Troponin I 0.061 ng/ml
[2024-04-09] MEDS: FLOMAX 0.4 MG PO (21:47)
[2024-04-09 21:51] LABS: Glucose - Point of Care 177 mg/dl (70-99)
--- NOTE | 2024-04-09 23:35 | PTCARENOTE ---
Pt with a 12-beat run of V-tach; pt asleep, asymptomatic, no complaints when woken up, BP stable 137/67. D/w covering TRACK MAN, appropriate labs are ordered for the morning, no new orders at this time. Pt remains on telemetry for monitoring.
[2024-04-10 03:00] VITALS: BP 134/66
[2024-04-10 03:30] LABS: Troponin I 0.054 ng/ml
[2024-04-10] MEDS: HEPARIN 25000 UNITS/250 ML IV (04:25)
[2024-04-10] MEDS: SYNTHROID 50 MCG PO (05:24)
--- NOTE | 2024-04-10 05:24 | CON.ONC ---
Impression
Impression
Hypoxemic respiratory insufficiency
Recurrent PE/Eliquis failure - specifics of first pulmonary embolism for which Eliquis was initiated 11/09/2023 is not clear
History of pulmonary nodule
Multifocal community-acquired pneumonia
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
CAD s/p PCI
Plan
Plan
Specifics of prior PE unknown. I see reference to pulmonary embolism on 11/09/2023 in patient's cardiology outpatient progress note but do not see reference of any imaging confirming that from our hospital.
Patient believes the pulmonary embolism may have been diagnosed at [facility].
My reference to pulmonary embolism is a line in Dr. Wilson PN from 12/24/2023: ' He underwent recent CT scan of the chest through pulmonary office with increased lung nodules. He is going to have a repeat CT scanning in September. 11/09/2023 started on
Eliquis for RLL PE with RLE consolidation'
Regardless, he has having progressive respiratory failure requiring oxygen despite Eliquis for which he states he is compliant.
Agree with IV heparin. He may require Lovenox...TBD
Regarding his respiratory failure, I suspected that it is may be more than his small pulmonary emboli. He has a pretty extensive and complicated history of cardiac and pulmonary disease. He has a history of pulmonary nodules. For now IV heparin
is reasonable but I do suspect cardiology and pulmonary should be consulted during his hospital stay to help optimize his cardiopulmonary status as he has multiple cardiac and pulmonary comorbidities and regarding the history of lung nodules. These
can also be contributing to his present illness specifically hypoxia.
Patient History
History of Present Illness
PCP: Sam Rowe, repairer sash and door: MICHELLE Al, Dr. Rodger Paul, analysis internship Dr. Home Wilson
Reason for hematology consult: Pulmonary embolism despite Eliquis
CC: SOB
HPI: 73-year-old man with history of prior PE 11/09/2023 (see PMH for specifics) presented to the ED 04/09 with shortness of breath. Was recently hospitalized with fever and URI symptoms with negative infectious workup. Was discharged and
subsequently developed worsening shortness of breath. Upon arrival was hypoxemic and required [address] chest with contrast showed right lower lobe segmental and subsegmental pulmonary artery emboli without signs of right heart strain as well
as findings consistent with multifocal pneumonia. This was stopped and he was started on IV vancomycin and cefepime. Hematology has been consulted for presumed anticoagulation failure.
Past-Medical/Surgical History
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
Most recent echocardiogram 01/19/2024 LVEF = 55%
My reference to pulmonary embolism is a line in Dr. Wilson PN from 12/24/2023: ' He underwent recent CT scan of the chest through pulmonary office with increased lung nodules. He is going to have a repeat CT scanning in September. 11/09/2023 started on
Eliquis for RLL PE with RLE consolidation'
Patient Medication
�Medication �Instructions �Recorded �Confirmed �Last Taken �Type
levothyroxine 50 mcg tablet 50 mcg PO DAILY Thyroid 09/17/12 04/09/24 04/04/24 History
(Levoxyl)
escitalopram oxalate 10 mg tablet 10 mg PO DAILY Mental Health 12/27/21 04/09/24 04/04/24 History
(Lexapro)
carvedilol 6.25 mg tablet 6.25 mg PO BID Blood Pressure 01/19/24 04/09/24 04/04/24 History
pantoprazole 20 mg tablet,delayed 20 mg PO DAILY Gastrointestinal 01/19/24 04/09/24 04/04/24 History
release Issue
apixaban 5 mg tablet (Eliquis) 5 mg PO BID Blood Clot 04/05/24 04/09/24 04/04/24 History
Prevention/Tx
fluticasone fur. 100 mcg-umeclid 1 inh inhalation R DAILY 04/05/24 04/09/24 04/04/24 History
62.5 mcg-vilant 25 mcg Lung/Breathing Issues
inhalat.powder (Trelegy Ellipta)
ferrous sulfate 325 mg (65 mg 325 mg PO DAILY Iron Deficiency 30 04/06/24 04/09/24 Unknown Rx
iron) tablet days #30 tabs
acetaminophen 650 mg 1,300 mg PO Q12H 04/09/24 04/09/24 Unknown History
tablet,extended release (Tylenol 8
Hour)
atorvastatin 40 mg tablet (Lipitor) 40 mg PO DAILY 04/09/24 04/09/24 Unknown History
cefuroxime axetil 500 mg tablet 500 mg PO DAILY mcfp 04/09/24 04/09/24 Unknown History
metformin 500 mg tablet 500 mg PO BID 04/09/24 04/09/24 Unknown History
tamsulosin 0.4 mg capsule (Flomax) 0.4 mg PO HS 04/09/24 04/09/24 Unknown History
tolterodine 4 mg capsule,extended 4 mg PO DAILY 04/09/24 04/09/24 Unknown History
release 24 hr
Active Medications
Generic Name Dose Route Start Last Admin
Trade Name Freq PRN Reason Stop Dose Admin
Acetaminophen 650 mg 04/09/24 12:43 04/09/24 19:58
Acetaminophen 325 Mg Tablet PO 05/07/24 12:42 650 mg
Q4HPRN PRN Administration
mild pain/ORTEGA/temp> 100.4F
Albuterol/Ipratropium 3 ml 04/09/24 12:43
Ipratropium 0.5/Albuterol 3 Mg (3 Ml Ampul) INH
R Q4HPRN PRN
SOB, wheeze
Protocol
Azithromycin 500 mg 04/10/24 08:00
Azithromycin 250 Mg Tablet PO
DAILY MARY
Bisacodyl 10 mg 04/09/24 12:43
Bisacodyl 10 Mg Rectal Suppository RECTAL 05/07/24 12:42
I15ECAR PRN
constipation
Budesonide/Formoterol Fumarate 2 puff 04/10/24 08:00
Symbicort Inhaler 80/4.5 INH 05/08/24 07:59
R BID MARY
Carvedilol 6.25 mg 04/09/24 20:00 04/09/24 19:58
Carvedilol 6.25 Mg Tablet PO 05/07/24 19:59 6.25 mg
BID MARY Administration
Ceftriaxone Sodium 1,000 mg 04/09/24 14:00 04/09/24 14:13
Ceftriaxone 1000 Mg / 10 Ml Vial IV 1,000 mg
Q24H MARY Administration
Escitalopram Oxalate 10 mg 04/10/24 08:00
Escitalopram 10 Mg Tablet PO 05/08/24 07:59
DAILY MARY
Ferrous Sulfate 325 mg 04/10/24 08:00
Ferrous Sulfate 325 Mg Tablet PO 05/08/24 07:59
DAILY MARY
Heparin Sodium 5,200 units 04/09/24 08:00
Heparin 80 Units/Kg Rebolus-Do Not Discard IV 05/07/24 07:59
PRN PRN
PTT < OR = 64 seconds
Heparin Sodium 2,600 units 04/09/24 08:01
Heparin 40 Units/Kg Rebolus-Do Not Discard IV 05/07/24 08:00
PRN PRN
PTT = 64.1 to 72.9 seconds
Heparin Sodium 25,000 units in 250 mls @ 0 mls/hr 04/09/24 08:00 04/10/24 04:25
Heparin 49129 Units/250 Ml IV 250 mls
PER PROTOCOL MARY Administration
Protocol
Per Protocol
Insulin Aspart 0 units 04/09/24 11:30 04/09/24 18:10
Insulin Aspart Low Resistance 300 Units/3 Ml Pen.Injctr SC 05/07/24 11:29 1 units
AC MARY Administration
Protocol
Levothyroxine Sodium 50 mcg 04/10/24 06:00
Levothyroxine 50 Mcg Tablet PO 05/08/24 05:59
DAILY@0600 MARY
Multivitamins Therapeutic 1 tablet 04/10/24 08:00
Multivitamin Tablet PO 05/08/24 07:59
DAILY MARY
Pantoprazole Sodium 20 mg 04/10/24 08:00
Pantoprazole 20 Mg Delayed Release Tablet PO 05/08/24 07:59
DAILY MARY
Polyethylene Glycol 17 grams 04/09/24 12:43
Polyethylene Glycol Powder 17 Grams Packet PO 05/07/24 12:42
DAILYPRN PRN
constipation
Rosuvastatin Calcium 40 mg 04/10/24 08:00
Rosuvastatin (Crestor) 20 Mg Tablet PO 05/08/24 07:59
DAILY MARY
Senna/Docusate Sodium 1 tablet 04/09/24 12:43
Docusate W/Senna (Rosana-Colace) Tablet PO 05/07/24 12:42
BIDPRN PRN
constipation
Sodium Chloride 0 flush 04/09/24 14:00
Sodium Chloride 0.9% (Flush) Syringe IV 05/07/24 13:59
PER PROTOCOL MARY
Sterile Water 10 ml 04/09/24 14:00 04/09/24 14:13
Sterile Water For Injection 10 Ml Vial IV 05/07/24 13:59 10 ml
Q24H MARY Administration
Tamsulosin HCl 0.4 mg 04/09/24 22:00 04/09/24 21:47
Tamsulosin 0.4 Mg Capsule PO 05/07/24 21:59 0.4 mg
HS MARY Administration
Tiotropium [place] 2 puff 04/10/24 08:00
Tiotropium (Spiriva Respimat) 2.5 Mcg Inhaler INH 05/08/24 07:59
R DAILY MARY
Physical Exam
-
General: Well Developed, Well Nourished and No Apparent Distress
Cardiology: Normal Sinus Rhythm, S1 and S2
Pulmonary: Clear
GI: Soft
Extremities: No C/C/E
Labs
Lab Results
WBC 7.5 10^3/uL (4.8-10.8) 04/09/24 03:27
RBC 4.02 10^6/uL (4.70-6.10) L 04/09/24 03:27
Hgb 8.7 g/dL (13.0-18.0) L 04/09/24 03:27
Hct 28.9 % (39.0-52.0) L 04/09/24 03:27
MCV 71.9 fL (80.0-94.0) L 04/09/24 03:27
MCH 21.6 pg (27.0-31.0) L 04/09/24 03:27
MCHC 30.1 g/dL (33.0-37.0) L 04/09/24 03:27
RDW 17.4 % (11.5-14.5) H 04/09/24 03:27
Plt Count 254 10^3/uL (130-400) D 04/09/24 03:27
MPV 9.5 fL (7.4-10.4) 04/09/24 03:27
Creatinine 1.4 mg/dL (0.7-1.3) H 04/09/24 03:27
Vital Signs
Vital Signs
Temp Pulse Resp BP Pulse Ox
97.7 F 63 18 134/66 100
04/10/24 03:00 04/10/24 03:00 04/10/24 03:00 04/10/24 03:00 04/10/24 03:00
[2024-04-10 05:26] VITALS: BMI 22.5
[2024-04-10 06:52] LABS: APTT 105.7 Sec (23.4-35.0)
[2024-04-10 07:05] VITALS: BP 135/63
[2024-04-10] MEDS: SYMBICORT 80/4.5 MCG INHALER 2 PUFF INH ×2 (07:06→17:36)
[2024-04-10] MEDS: SPIRIVA RESPIMAT 2.5 MCG 2 PUFF INH (07:06)
[2024-04-10 07:07] LABS: Troponin I 0.056 ng/ml
[2024-04-10 07:09] LABS: % Basophils 0.1 % (0-2); % Immature Granulocytes 0.4 % (0-0.5); % Lymphocytes 7.1 % (20.5-51.1); % Monocytes 6.8 % (1.7-9.3); % Neutrophils 85.6 % (42.2-75.2); Absolute Immature Granulocytes 0.1 10^3/uL (0-0.05); Absolute Lymphocytes 1.1 10^3/uL (1.2-3.4); Absolute Neutrophils 13.1 10^3/uL (1.4-6.5); Hematocrit 23.2 % (39.0-52.0); Hemoglobin 7.2 g/dL (13.0-18.0); Mean Corpuscular Volume 70.7 fL (80.0-94.0); Mean Platelet Volume 10.2 fL (7.4-10.4); Nucleated Red Blood Cells % 0 % (-); Platelet Count 189 10^3/uL (130-400); Red Blood Cell Count 3.28 10^6/uL (4.70-6.10); Red Cell Dist. Width 17.3 % (11.5-14.5); White Blood Cell Count 15.3 10^3/uL (4.8-10.8)
[2024-04-10 07:41] LABS: Glucose - Point of Care 146 mg/dl (70-99)
[2024-04-10 08:00] LABS: Blood Urea Nitrogen 27 mg/dl (9-20); Calcium 9.3 mg/dl (8.4-10.2); Carbon Dioxide 25 mmol/L (22-30); Chloride 105 mmol/L (98-107); Estimated Creatinine Clearance 58 ml/min; Glucose 132 mg/dl (70-99); Sodium 137 mmol/L (135-145); eGFR > 60.00
[2024-04-10] MEDS: ZITHROMAX 500 MG PO (08:13)
[2024-04-10] MEDS: NOVOLOG FLEXPEN-LOW RESISTANCE SC ×3 (08:13→17:02)
[2024-04-10] MEDS: LEXAPRO 10 MG PO (08:14)
[2024-04-10] MEDS: THERAGRAN 1 TABLET PO (08:14)
[2024-04-10] MEDS: COREG 6.25 MG PO ×2 (08:14→19:42)
[2024-04-10] MEDS: FEOSOL 325 MG PO (08:14)
[2024-04-10] MEDS: PROTONIX 20 MG PO (08:14)
[2024-04-10] MEDS: CRESTOR 40 MG PO (08:14)
[2024-04-10 08:28] LABS: Potassium 4.5 mmol/L (3.5-5.1)
--- NOTE | 2024-04-10 09:50 | CM ---
CM reviewed medical records. Patient lives independently with . Patient is currently with his PCP> patient uses [facility] in [place] for medication services. Patient has a history of placement at [facility].
PLAN: CM will watch for PT needs; possible oxygen needs.
--- NOTE | 2024-04-10 10:07 | PTCARENOTE ---
pt aaox3. states no pain or sob. breath sounds diminished. room air. heparin gtt running as ordered.
[2024-04-10 11:30] VITALS: BP 116/59
[2024-04-10 12:06] LABS: Glucose - Point of Care 121 mg/dl (70-99)
[2024-04-10] MEDS: ROCEPHIN 1000 MG IV (13:25)
[2024-04-10] MEDS: STERILE WATER FOR INJECTION 10 ML IV (13:25)
--- NOTE | 2024-04-10 13:57 | W.PN.HOSP.TC ---
Addendum entered and electronically signed by Roberto Alejandre DO 04/10/24 14:07:
Microcytic anemia. Has known MIKKI, however hemoglobin dropped from 8.7-7.2 after starting heparin drip yesterday. Cannot rule out an occult GI bleeding source at this time. Will repeat H/H this evening, plan to transfuse if hemoglobin <7.0. May
need to hold heparin drip temporarily if significantly worse
Original Note:
Today's Communication/Plan
-
Continue IV heparin drip for now
Continue IV antibiotics
Plan for TTE tomorrow
Pulmonology consult
Assessment / Plan
Assessment / Plan
#Acute hypoxemic respiratory insufficiency
#Acute pulmonary embolism/Eliquis failure
#Multifocal community-acquired pneumonia
-Developed worsening dyspnea after recent discharge, CT with findings of PE and pneumonia
-CT was without evidence of right heart strain, unable to rule out underlying mass per CT read
-Currently on Eliquis twice daily for history of PE, states he is compliant with medication
-Required 4 L supplemental oxygen on arrival; no fever or leukocytosis here
-Remained hemodynamically stable, no indication for intravascular interventions
-Elevated BNP and troponin consistent with RV strain, elevated procalcitonin consistent with CAP
-Has been titrated down to room air, SpO2 in the 90s
Plan
-Continue with IV heparin drip, consider transitioning to Lovenox 1 mg/kg twice daily
-Continue with home Trelegy and as needed bronchodilators
-Continue with ceftriaxone and azithromycin, plan 7 days of Abx
-Plan to repeat CT thorax to assess for lung mass
-Follow-up TTE to assess RV systolic function
-Pulmonary consult
-Consider cards consult if echo abnormal
#Elevated troponin
-Nonischemic myocardial injury, RV strain from PE
-No ischemic ECG changes, flat troponin trend, no chest pain
-Pending TTE as above
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
#CAD s/p PCI
#S/P AICD extraction
-Home GDMT includes carvedilol, high intensity statin
-Not currently on antiplatelet therapy due to DOAC for history of PE
-Not currently on any standing dose of loop diuretic
-Appears euvolemic
#NIDDM
-Not currently on any antihyperglycemic regimen
-Will start ISS with Accu-Cheks
#Hypothyroidism
-Unclear etiology, home meds include 50 mcg levothyroxine daily
-No signs or symptoms of thyroid dysfunction at this time
#Iron deficiency anemia
-Diagnosed on recent hospital stay, was planned to have outpatient colonoscopy soon
-Will continue with oral iron and trend CBC
#COPD
-No recent PFTs; Home meds include Trelegy Ellipta
-No signs or symptoms of COPD flare here
#GERD C/B Peraaz's esophagus
-Unknown if significant dysplasia seen on pathology
-Home medications include PPI regimen
#AAA s/p EVAR
-Remains on high intensity statin
DVT prophylaxis: Heparin drip
Diet: Regular
CODE STATUS: Full code
Disposition: Admit to telemetry
Anticipated Discharge: 24 - 48 hours
Subjective/Interval History
-
Date of Service: April 10, 2024
Seen and examined at the bedside. No acute events reported overnight. AFVSS this morning on room air
He states he feels well, breathing is improved. Denies any chest pain or coughing
Denies any acute complaints
Objective Data
-
Labs:
Laboratory Results
04/10/24
06:31
WBC 15.3 H
Hgb 7.2 L
Hct 23.2 L
Plt Count 189 D
APTT 105.7 H
Sodium 137
Potassium 4.5
Chloride 105
Carbon Dioxide 25
BUN 27 H
Creatinine 1.0
Glucose 132 H
Calcium 9.3
Vital Signs:
Vital Signs
Temp Pulse Resp BP Pulse Ox
97.8 F 64 18 116/59 96
04/10/24 11:30 04/10/24 11:30 04/10/24 11:30 04/10/24 11:30 04/10/24 11:30
I&O
04/09/24 04/10/24 04/11/24
06:59 06:59 06:59
Intake Total 552 / 552 240 / 240
Output Total 750 / 750 400 / 400
Balance -198 / -198 -160 / -160
Review of Systems
-
History Source: Patient
All other systems: Reviewed and negative
Physical Exam
-
General: Well Developed, Well Nourished, No Apparent Distress and Comfortable
HEENT: Normocephalic, Atraumatic, Moist Mucous Membranes and Anicteric
Respiratory: Clear to Auscultation and Non Labored Respirations; Negative Wheezes, Rales or Rhonchi
Cardiac: Regular Rhythm and S1/S2; Negative Murmur, Rub, JVD or Gallop
GI: Soft, Nontender, Nondistended and Normal Bowel Sounds
Musculoskeletal: No Clubbing, No Cyanosis and No Edema
Skin: Warm, Dry and Normal Turgor; Negative Rash
Neuro: AO x 3 and Nonfocal/Grossly Intact; Negative Tremors
Hematologic / Lymphatic: No Lymphadenopathy
Psych: Calm
Data Reviewed
-
CT Scan: Report Reviewed by me and Discussed with Physician (Patient Financial Services Specialist)
Labs: Labs Reviewed by me and Discussed with Patient
[2024-04-10 14:41] VITALS: BP 135/60
--- NOTE | 2024-04-10 16:10 | CON.PUL ---
Consultation
Consultation Request
Date/Time Consultation Requested: 04/10
Date/Time Consultation Performed: 04/10
Reason for Consultation: Shortness of breath, abnormal imaging
Medical History
-
History of Present Illness:
History obtained from the patient, reviewing both inpatient and outpatient records. 73-year-old male with complex medical history including COPD/emphysema, sleep apnea intolerant to CPAP, history of multiple pulmonary nodules which appear to wax
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 October 2023, gram-positive bacteremia with AICD lead infection requiring AICD explant treated at [facility], questionable history
of pulmonary embolism October [address] [facility] following 3 months of anticoagulation (could not confirm). Of note patient was recently discharged 04/06/2024 where he was treated for fever of unknown origin, started on antibiotic therapy. Cultures
were negative. He presents to [facility] with increased shortness of breath for a few days. He was brought by ambulance. He states he is taking Eliquis therapy but he is not a very good historian overall. Upon arrival to [facility]
Hospital, pulse 101, breathing at 33, 94%, afebrile. CT chest was obtained despite being on anticoagulation. Multifocal pneumonia, bronchiolitis and interstitial changes with scattered nodules along with segmental and subsegmental pulmonary emboli
noted. We are asked to comment on his pulmonary process
.
PMH: Hypertension, hypercholesterolemia, history of cardiomyopathy, ICD, hypothyroidism, coronary disease with AR, asthma/COPD/emphysema (FEV1 48%/DLCO 33% as of February 2024), history of Peraza's esophagitis, nephrolithiasis, ventricular
tachycardia, sleep apnea, neck 7.5, desaturation mara 84% intolerant of treatment, hiatal hernia, infrarenal abdominal aortic aneurysm, BPH, diabetes. History of tonsillectomy, lithotripsy, mastoid surgery, rotator cuff surgery, left inguinal
hernia repair, EVAR, iliac stent
Past Medical History
Past Medical History: None (See above)
Past Surgical History: None (See above)
Social History
Tobacco: Former Smoker (40+ pack-year, quit 2015. Smoked 2 packs a day most of his life)
Alcohol: Occasional
Drug: None
Employment: Retired
Family History
Family History: Other (5 children, 5 siblings healthy. Father with diabetes, mother at age 54 from heart disease. Brother has history of aneurysm)
Allergies / Home Medications
Allergies
Allergy/AdvReac Type Severity Reaction Status Date / Time
No Known Allergies Allergy Verified 03/31/24 16:13
Home Medications
�Medication �Instructions �Recorded �Confirmed �Last Taken �Type
levothyroxine 50 mcg tablet 50 mcg PO DAILY Thyroid 09/17/12 04/09/24 04/04/24 History
(Levoxyl)
escitalopram oxalate 10 mg tablet 10 mg PO DAILY Mental Health 12/27/21 04/09/24 04/04/24 History
(Lexapro)
carvedilol 6.25 mg tablet 6.25 mg PO BID Blood Pressure 01/19/24 04/09/24 04/04/24 History
pantoprazole 20 mg tablet,delayed 20 mg PO DAILY Gastrointestinal 01/19/24 04/09/24 04/04/24 History
release Issue
apixaban 5 mg tablet (Eliquis) 5 mg PO BID Blood Clot 04/05/24 04/09/24 04/04/24 History
Prevention/Tx
fluticasone fur. 100 mcg-umeclid 1 inh inhalation R DAILY 04/05/24 04/09/24 04/04/24 History
62.5 mcg-vilant 25 mcg Lung/Breathing Issues
inhalat.powder (Trelegy Ellipta)
ferrous sulfate 325 mg (65 mg 325 mg PO DAILY Iron Deficiency 30 04/06/24 04/09/24 Unknown Rx
iron) tablet days #30 tabs
acetaminophen 650 mg 1,300 mg PO Q12H Pain 04/09/24 04/09/24 Unknown History
tablet,extended release (Tylenol 8
Hour)
atorvastatin 40 mg tablet (Lipitor) 40 mg PO DAILY High Cholesterol 04/09/24 04/09/24 Unknown History
cefuroxime axetil 500 mg tablet 500 mg PO DAILY long chain beamer 04/09/24 04/09/24 Unknown History
metformin 500 mg tablet 500 mg PO BID Diabetes 04/09/24 04/09/24 Unknown History
tamsulosin 0.4 mg capsule (Flomax) 0.4 mg PO HS Urinary Issue 04/09/24 04/09/24 Unknown History
tolterodine 4 mg capsule,extended 4 mg PO DAILY Urinary Issue 04/09/24 04/09/24 Unknown History
release 24 hr
Review of Systems
-
All other systems: Negative unless noted
Vitals / Labs / Diagnostic Testing
Vital Signs
Temp Pulse Resp BP Pulse Ox
98.5 F 66 18 135/60 93
04/10/24 14:41 04/10/24 14:41 04/10/24 14:41 04/10/24 14:41 04/10/24 14:41
Lab Data
04/10/24 06:31
Laboratory Results
04/09/24 04/10/24
20:42 06:31
APTT 79.8 H 105.7 H
Microbiology
04/09/24 03:29 Nasal Swab Influenza Types A & B (MARCELA) - Final
Negative for Influenza A & B, NAAT
Negative results must be combined with clinical observations
and patient history.
Nucleic Acid Amplification test (NAAT)performed on the
[employer] platform.
Diagnostic Testing:
Physical Exam
-
HEENT: Normocephalic and Anicteric
Cardiovascular: S1/S2, Regular Rhythm, Murmur (n), Rub (n) and Peripheral Edema (n)
Respiratory: Wheeze (n), Rales (n), Rhonchi (n), Non-Labored Respirations and Other (Bronchial)
GI: Soft, Non Distended and Non Tender
Neurology: Awake, Alert and No Motor Deficits
Skin: Good Color and Other (No clubbing, cyanosis or edema)
General: Comfortable
Assessment
-
73-year-old male with extremely complex medical history including coronary disease with stent, diabetes, AAA status post EVAR, bacteremia status post AICD extraction October 2023 followed by antibiotics, history of pulmonary embolism around October 2023?
On 3 months of anticoagulation, with recent hospital stay for fever of unknown origin, discharged 04/06. Now returns with progressive shortness of breath. CT chest obtained reveals persistent thromboembolic disease. Patient is extremely poor
historian. Some records states he is taking Eliquis. He could not confirm to me that he was taking his blood thinner. We are asked to comment on his pulmonary process
Acute bilateral pulmonary embolism, per CT chest
Chronicity unclear
Compliance with Eliquis unclear
Apparent thromboembolic disease October [address] [facility]?
Bilateral patchy interstitial changes
Nodular, bronchiolitic
History of waxing waning nodules in the past
Recent ICD infection with bacteremia
Requiring antibiotics with PICC line, removal of AICD
Treated at [facility]?
Renal insufficiency, creatinine 1.4, CKD
Anemia, hemoglobin 7.2
Elevated troponin
Pulmonary hypertension, PA pressure 50
Normal biventricular function, per echo 04/05/2024
Conditions present prior to admission
History of AAA, status post EVAR
Coronary disease with PCI in the past
Diabetes
Hypertension/hyperlipidemia
Hypothyroidism
Severe COPD/emphysema
FEV1 47%, DLCO 33%
On home oxygen, noncompliant
Obstructive sleep apnea with nocturnal hypoxia
Intolerant of CPAP
40+ pack-year history of smoking quit 2015
Plan/recommendations
At this time, patient with extremely complex medical history
At 1 point patient states he is not taking his blood thinner, but records suggest that he is
Outpatient records also suggest that patient only took 3 months of anticoagulation, unclear if this continued past October
It also appears that imaging that confirmed thromboembolic disease was either at [facility] or [facility]
Patient was treated for AICD, bacterial infection at [facility] recently with PICC line. Details unclear
Chest exam is clear
Patient with baseline poor pulmonary function, FEV1 47%, DLCO 33%
He is on chronic Trelegy inhaler therapy
Significant smoking history noted
Moving forward
not sure whether thromboembolic disease represents new disease or unresponsive to current disease.
Patient is not clear as to whether he has been taking his Eliquis therapy
Furthermore, his pulmonary nodules appear to wax and wane in the past
This raise the possibility of aspiration, immune disease, inflammatory disease, embolic disease, especially given his recent bacteremia with AICD
Check VSE
Check CRP, sed rate, haptoglobin, LDH
Given questionable history of endocarditis, bacteremia, anemia, if elevated may consider POLLY
Presently remains on Lovenox, hematology following
Unclear why patient has anemia
Patient is overdue for endoscopy
Given thromboembolic disease, would recommend age-appropriate cancer screening
The above was reviewed at length with patient
We will follow-up
[2024-04-10 16:46] LABS: Glucose - Point of Care 114 mg/dl (70-99)
[2024-04-10] MEDS: FLOMAX 0.4 MG PO (19:42)
[2024-04-10 19:45] LABS: Hematocrit 23.6 % (39.0-52.0); Hemoglobin 7.3 g/dL (13.0-18.0); Mean Corp Hgb Conc. 30.9 g/dL (33.0-37.0); Mean Corpuscular Volume 71.1 fL (80.0-94.0); Mean Platelet Volume 10.3 fL (7.4-10.4); Platelet Count 198 10^3/uL (130-400); Red Blood Cell Count 3.32 10^6/uL (4.70-6.10); Red Cell Dist. Width 17.6 % (11.5-14.5); White Blood Cell Count 12.5 10^3/uL (4.8-10.8)
[2024-04-10 19:48] VITALS: BP 128/65
[2024-04-10 21:49] LABS: Glucose - Point of Care 172 mg/dl (70-99)
[2024-04-10 23:32] VITALS: BP 126/62
--- NOTE | 2024-04-11 00:40 | PTCARENOTE ---
ax3 room air to maintain sats heparin gtt infusing and is therapeutic ptt in am- repeat cbc drawn- vitals pox wnl-
[2024-04-11] MEDS: HEPARIN 25000 UNITS/250 ML IV (02:57)
[2024-04-11 03:02] VITALS: BP 142/70
[2024-04-11] MEDS: SYNTHROID 50 MCG PO (05:17)
[2024-04-11 05:20] VITALS: BMI 22.6
[2024-04-11 06:29] LABS: % Basophils 0.2 % (0-2); % Eosinophils 0.7 % (0-6); % Immature Granulocytes 0.7 % (0-0.5); % Lymphocytes 13.5 % (20.5-51.1); % Monocytes 7.7 % (1.7-9.3); % Neutrophils 77.2 % (42.2-75.2); Absolute Eosinophils 0.1 10^3/uL (0-0.7); Absolute Immature Granulocytes 0.1 10^3/uL (0-0.05); Absolute Lymphocytes 1.6 10^3/uL (1.2-3.4); Absolute Monocytes 0.9 10^3/uL (0.1-0.6); Absolute Neutrophils 9.3 10^3/uL (1.4-6.5); Hematocrit 25.1 % (39.0-52.0); Hemoglobin 7.8 g/dL (13.0-18.0); Mean Corp Hgb Conc. 31.1 g/dL (33.0-37.0); Mean Corpuscular Hgb 21.9 pg (27.0-31.0); Mean Corpuscular Volume 70.5 fL (80.0-94.0); Nucleated Red Blood Cells % 0 % (-); Platelet Count 191 10^3/uL (130-400); Red Blood Cell Count 3.56 10^6/uL (4.70-6.10); Red Cell Dist. Width 17.3 % (11.5-14.5); White Blood Cell Count 12.1 10^3/uL (4.8-10.8)
[2024-04-11 06:57] LABS: Blood Urea Nitrogen 25 mg/dl (9-20); Calcium 9.6 mg/dl (8.4-10.2); Carbon Dioxide 27 mmol/L (22-30); Chloride 102 mmol/L (98-107); Estimated Creatinine Clearance 53 ml/min; Glucose 109 mg/dl (70-99); Potassium 3.9 mmol/L (3.5-5.1); Sodium 138 mmol/L (135-145); eGFR > 60.00
[2024-04-11] MEDS: HEPARIN 5200 UNITS IV (07:01)
[2024-04-11] MEDS: SPIRIVA RESPIMAT 2.5 MCG 2 PUFF INH (07:25)
[2024-04-11] MEDS: SYMBICORT 80/4.5 MCG INHALER 2 PUFF INH ×2 (07:25→21:03)
[2024-04-11 07:33] LABS: LDH 204 U/L (120-246)
[2024-04-11 07:42] LABS: Erythrocyte Sed Rate 52 mm/hour (0-20)
[2024-04-11] MEDS: NOVOLOG FLEXPEN-LOW RESISTANCE SC ×3 (07:57→17:34)
[2024-04-11 07:58] VITALS: BP 140/69
[2024-04-11 08:10] LABS: Glucose - Point of Care 129 mg/dl (70-99)
--- NOTE | 2024-04-11 08:35 | PTOTSP ---
Speech Language Pathology
VIDEOFLUOROSCOPIC SWALLOWING EXAMINATION (VSE) completed. Mild pharyngeal dysphagia noted. Supraglottic penetration (PAS 3) noted with consecutive sips of thin liquids and mildly thick liquids via straw. This cleared with a cued cough. No other
penetration or any aspiration noted.
Recommend:
(1) Regular solids/thin liquids
(2) Aspiration precautions: single sips only (or throat clear if takes consecutive sips), sit upright, slow rate
(3) Meds whole with liquid if able to take with single sip of liquid
(4) Further KENO DEALER services not indicated
--- NOTE | 2024-04-11 09:20 | W.PN.PUL3 ---
Today's Communication / Plan
-
Continue with therapeutic Lovenox
Recs appreciated by heme/onc
Continue with antibiotics for total of 7 days
Monitor procal for trending power (0.73 on 04/09/2024)
Maintain SpO2 88-95%
Up OOB as tolerated
PT/OT
According to family, patient is sedentary at home and this likely contributed to his VTE
Pulmonary service will continue to follow along - follow-up with Dr. Brooke in the office (last visit 02/24/2024)
Assessment
-
73-year-old male with extremely complex medical history including coronary disease with stent, diabetes, AAA status post EVAR, bacteremia status post AICD extraction October 2023 followed by antibiotics, history of pulmonary embolism around October 2023?
On 3 months of anticoagulation, with recent hospital stay for fever of unknown origin, discharged 04/06. Now returns with progressive shortness of breath. CT chest obtained reveals persistent thromboembolic disease. Patient is extremely poor
historian. Some records states he is taking Eliquis. He could not confirm to me that he was taking his blood thinner. We are asked to comment on his pulmonary process
Acute RLL pulmonary embolism
Chronicity unclear
Compliance with Eliquis unclear, although patient reports that he has been using it as directed
Apparent thromboembolic disease October 2023 at [facility]?
Bilateral patchy interstitial changes
Nodular, bronchiolitic
History of waxing waning nodules in the past
Recent ICD infection with bacteremia
Requiring antibiotics with PICC line, removal of AICD
Treated at [place]?
Renal insufficiency, creatinine 1.4, CKD - Cr improving
Anemia
Elevated troponin � peaked at 0.061 on 04/09/2024
Pulmonary hypertension, PA pressure 50
Normal biventricular function, per echo 04/05/2024
Conditions present prior to admission
History of AAA, status post EVAR
Coronary disease with PCI in the past
Diabetes
Hypertension/hyperlipidemia
Hypothyroidism
Severe COPD/emphysema
FEV1 47%, DLCO 33%
On home oxygen, noncompliant
Obstructive sleep apnea with nocturnal hypoxia
Intolerant of CPAP
40+ pack-year history of smoking quit 2015
Plan/recommendations
At this time, patient with extremely complex medical history
At one point patient states he was not taking his blood thinner, but records suggest that he is
Outpatient records also suggest that patient only took 3 months of anticoagulation, unclear if this continued past October
It also appears that imaging that confirmed thromboembolic disease was either at [facility] or [facility]
Patient was treated for AICD, bacterial infection at [facility] recently with PICC line. Details unclear
Chest exam has coarse breath sounds
Patient with baseline poor pulmonary function with moderate COPD and severe gas exchange capacity defect which is moderate when accounting for alveolar volume involved in gas exchange (post�bronchodilator FEV1: 1.27 L / 51% predicted, DLco: 33%,
DLco/VA: 45%)
He is on chronic Trelegy inhaler therapy
Significant smoking history noted
Moving forward
not sure whether thromboembolic disease represents new disease or unresponsive to current disease, however considering that this thrombus is in a different distribution compared to prior imaging from October 2023 (it is more proximal now), this suggest
that this is an acute PE
Patient is not clear as to whether he has been taking his Eliquis therapy, but today (04/11/2024) he says that he has been taking up until his current hospitalization
Furthermore, his pulmonary nodules appear to wax and wane in the past
This raise the possibility of aspiration, immune disease, inflammatory disease, embolic disease, especially given his recent bacteremia with AICD
Given the concern for multifocal pneumonia on his CTA chest from 04/09/2024, recommend a 7-day course of antibiotics - currently on ceftriaxone/Zithromax (monitor QTc: 477ms on 04/09/2024)
CHANGE ANALYST performed VSE today showing mild pharyngeal dysphagia with no penetration or aspiration noted; continue diet as per CHANGE ANALYST
Inflammatory markers are elevated (CRP: 59.7+ ESR: 52)
Haptoglobin is pending
LDH is WNL at 204
Given questionable history of endocarditis, bacteremia, anemia, if patient becomes febrile with worsening leukocytosis then would consider POLLY
Presently remains on therapeutic Lovenox, hematology following
Unclear why patient has anemia
Patient is overdue for endoscopy - this should be reviewed as an outpatient
Given thromboembolic disease, would recommend age-appropriate cancer screening
The above was reviewed at length with patient and his son and brother by Dr. Do
We will continue to follow along.
Total time spent today was 37 minutes for this encounter. Time includes reviewing laboratory test/imaging results, reviewing pertinent medical records, obtaining and reviewing medical history, performing an appropriate exam, ordering medications,
tests and procedures. Time also includes documentation of this encounter, coordinating patient care and communicating with other healthcare professionals. Total time does not include separately billed tests performed on this date of service.
Subjective Data
-
Date of Service:
Date of Service: April 11, 2024
Chief Complaint: Pulmonary Follow Up
Subjective:
Patient seen and evaluated today at bedside. Currently on heparin drip. On room air breathing comfortably. Denies shortness of breath with activity. Patient's brother, Johan, at bedside, as well as the patient's son. All questions were answered.
No acute events reported from overnight. He currently denies chest pain, ORTEGA, abdominal pain, nausea, fevers or chills.
Review of Systems
General: Other (Negative unless mentioned above)
Objective Data
Data Reviewed
Vital Signs / I&O / Oxygen:
Vital Signs
Temp Pulse Resp BP Pulse Ox
98.4 F 60 18 140/69 95
04/11/24 07:58 04/11/24 07:58 04/11/24 07:58 04/11/24 07:58 04/11/24 07:58
Intake and Output
04/10/24 04/11/24 04/12/24
06:59 06:59 06:59
Intake Total 552 / 552 624 / 624
Output Total 750 / 750 1700 / 1700
Balance -198 / -198 -1076 / -1076
SaO2 95
Nasal Cannula flow liters per 2
minute
Physical Exam
General: Respiratory Distress (negative), Comfortable, Chills (negative) and Sweats (negative)
HEENT: Normocephalic and Anicteric
Cardiovascular: S1-S2 and Peripheral Edema (negative)
Respiratory: Wheeze (negative), Rhonchi (negative), Non-Labored Respirations and Other (Coarse breath sounds bilaterally)
GI: Soft, Non Distended, Non Tender and Normal Bowel Sounds
Neurology: AO x 3 and Tremors (negative)
Skin: Warm, Dry, Cyanosis (negative) and Jaundice (negative)
Labs/Micro/Reports
Lab Data
04/11/24 05:38
04/11/24 05:38
Laboratory Results
04/11/24
05:38
APTT 62.0 H
Microbiology
04/09/24 03:29 Nasal Swab Influenza Types A & B (MARCELA) - Final
Negative for Influenza A & B, NAAT
Negative results must be combined with clinical observations
and patient history.
Nucleic Acid Amplification test (NAAT)performed on the
[employer] platform.
[2024-04-11] MEDS: ZITHROMAX 500 MG PO (09:27)
[2024-04-11] MEDS: LEXAPRO 10 MG PO (09:27)
[2024-04-11] MEDS: COREG 6.25 MG PO ×2 (09:27→20:37)
[2024-04-11] MEDS: CRESTOR 40 MG PO (09:27)
[2024-04-11] MEDS: PROTONIX 20 MG PO (09:27)
[2024-04-11] MEDS: FEOSOL 325 MG PO (09:27)
[2024-04-11] MEDS: THERAGRAN 1 TABLET PO (09:28)
--- NOTE | 2024-04-11 11:12 | W.PN.ONC2 ---
Addendum entered and electronically signed by SHEKHAR Arana 04/11/24 15:40:
I reviewed imaging with Dr. Greer, radiologist - the right lower lobe pulmonary arterial emboli are in a slightly different distribution (involving different segmental/subsegmental pulmonary arteries) compared to the right lower lobe pulmonary
arterial emboli seen in retrospect on prior CTA abdomen/pelvis exam from 11/06/2023. This suggests that the current pulmonary emboli are likely acute.
Original Note:
Today's Communication / Plan
-
continue anemia evaluation
continue heparin gtt
check APLS panel
pulmonary following
Impression
Impression
Hypoxemic respiratory insufficiency
Recurrent PE/Eliquis failure - specifics of first pulmonary embolism for which Eliquis was initiated 11/09/2023 is not clear
History of pulmonary nodule
Multifocal community-acquired pneumonia
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
CAD s/p PCI
Anemia multifactorial including MIKKI with ferritin ~16, inflammation with elevated ESR. No B12 or folate deficiency.
Plan
Plan
October 2023 pulmonary embolism details unclear, however, was treated with DOAC. I called [facility] pharmacy in [place] and pharmacist confirmed that pt has been picking up Eliquis 5mg BID monthly #60 which implies compliance.
Respiratory failure unexplained by small pulmonary emboli, likely multifactorial extensive and complicated history of cardiac and pulmonary disease
on heparin gtt, concern for DOAC failure if CT respresents an acute thrombosis. Would need to consider enoxaparin vs warfarin at dc
pulmonary nodules
avoid parenteral iron with active infection, on ferrous sulfate daily, monitor for GI toxicity/constipation
check heme stool and retic
Subjective/Objective
Subjective
denies bleeding or pain
Vital Signs:
Vital Signs
Temp Pulse Resp BP Pulse Ox
98.4 F 60 18 140/69 95
04/11/24 07:58 04/11/24 07:58 04/11/24 07:58 04/11/24 07:58 04/11/24 07:58
Lab Results:
Laboratory Data
WBC 12.1 10^3/uL (4.8-10.8) H 04/11/24 05:38
Hgb 7.8 g/dL (13.0-18.0) L 04/11/24 05:38
Plt Count 191 10^3/uL (130-400) 04/11/24 05:38
APTT 62.0 Sec (23.4-35.0) H 04/11/24 05:38
eGFR > 60.00 04/11/24 05:38
Physical Exam
HEENT: Moist Mucous Membranes; No Jaundice
Pulmonary: Clear
GI: Soft
Extremities: Pulses Present; No Edema
[2024-04-11 12:31] LABS: Reticulocyte Count 1.9 % (0.4-2.8)
[2024-04-11 12:40] LABS: Glucose - Point of Care 106 mg/dl (70-99)
[2024-04-11 12:53] VITALS: BP 143/70
--- NOTE | 2024-04-11 13:01 | W.PN.HOSP.TC ---
Today's Communication/Plan
-
Will stop hep gtt
Start LMWH Tx dosing and he will need teaching
Assessment / Plan
Assessment / Plan
#Acute hypoxemic respiratory insufficiency
#Acute pulmonary embolism/Eliquis failure
#Multifocal community-acquired pneumonia
-Unclear as to etiology of hypoxia potentially could be related to PE/pneumonia/pulmonary nodules. But now resolved as he has been on room air per EMR since 04/10 at 10am.
-- Pulmonary following
-- 2D echo per cardiology demonstrating inferior lateral hypokinesis which is unchanged from prior echo from a week ago, this does not appear to be an acute finding
--Hem/Onc following, believed to be true eliquis failure, rec on dc coumadin or lmwh dosing, additionally, they have ordered an hypercoag work up.
--Will need outpatient heme/cards/pulm follow up
#Elevated troponin
-Nonischemic myocardial injury
-2d echo without evidence of RV strain from PE
-No ischemic ECG changes, flat troponin trend, no chest pain
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
#CAD s/p PCI
#S/P AICD extraction
-Home GDMT includes carvedilol, high intensity statin
-Not currently on antiplatelet therapy due to DOAC for history of PE
-Not currently on any standing dose of loop diuretic
-Appears euvolemic
#NIDDM
-Not currently on any antihyperglycemic regimen
-Will start ISS with Accu-Cheks
-BG 140-180
-CCDiet
#Hypothyroidism
-Continue Levothyroxine 50mcg
-No signs or symptoms of thyroid dysfunction at this time
#Iron deficiency anemia
-Diagnosed on recent hospital stay, was planned to have outpatient colonoscopy soon
-Will continue with oral iron and trend CBC
#COPD
-No recent PFTs; Home meds include Trelegy Ellipta
-No signs or symptoms of COPD flare here
#GERD C/B Peraza's esophagus
-Unknown if significant dysplasia seen on pathology
-Home medications include PPI regimen
#AAA s/p EVAR
-Remains on high intensity statin
DVT prophylaxis: Heparin drip
Diet: Regular
CODE STATUS: Full code
Disposition: Admit to telemetry
Anticipated Discharge: Within 24 hours
Subjective/Interval History
-
Date of Service: April 11, 2024
Seen and examined. No new complaints. No acute overnight events.
Has not required supplemental oxygen today
Objective Data
-
Labs:
Laboratory Results
04/11/24 04/11/24
05:38 13:00
WBC 12.1 H
Hgb 7.8 L
Hct 25.1 L
Plt Count 191
APTT 62.0 H Pending
Sodium 138
Potassium 3.9
Chloride 102
Carbon Dioxide 27
BUN 25 H
Creatinine 1.1
Glucose 109 H
Calcium 9.6
Vital Signs:
Vital Signs
Temp Pulse Resp BP Pulse Ox
98.9 F 58 18 143/70 95
04/11/24 12:53 04/11/24 12:53 04/11/24 12:53 04/11/24 12:53 04/11/24 12:53
I&O
04/10/24 04/11/24 04/12/24
06:59 06:59 06:59
Intake Total 552 / 552 624 / 624
Output Total 750 / 750 1700 / 1700 500 / 500
Balance -198 / -198 -1076 / -1076 -500 / -500
Physical Exam
-
General: Well Developed and Well Nourished
HEENT: Normocephalic and Atraumatic
Respiratory: Rhonchi
Cardiac: Regular Rhythm and S1/S2
GI: Soft, Nontender, Nondistended and Normal Bowel Sounds
Musculoskeletal: No Clubbing and No Cyanosis
Skin: Warm
Neuro: Awake, Alert, Oriented and AO x 3
Psych: Calm
[2024-04-11 13:50] LABS: APTT 92.8 Sec (23.4-35.0)
[2024-04-11] MEDS: LOVENOX 60 MG SC (14:32)
[2024-04-11] MEDS: ROCEPHIN 1000 MG IV (14:33)
[2024-04-11] MEDS: STERILE WATER FOR INJECTION 10 ML IV (14:33)
--- NOTE | 2024-04-11 15:19 | CM ---
Addendum entered by Nona Escalera 04/11/24 15:20:
Order for consult with Dr. Hill murphy.
Original Note:
Patient now on room air. Cleared by speech therapy. No PT notes.
[2024-04-11 16:31] VITALS: BP 153/70
[2024-04-11 17:43] LABS: Glucose - Point of Care 127 mg/dl (70-99)
--- NOTE | 2024-04-11 20:18 | PTCARENOTE ---
Received pt from previous RN. Pt is AAOx3. NSR on the monitor. On RA 02 sat 95%, lungs diminished. Assessment done (see worklist). Pt is laying in bed with call rodriguez in reach.
[2024-04-11 20:21] VITALS: BP 149/68
[2024-04-11] MEDS: FLOMAX 0.4 MG PO (20:37)
[2024-04-11 22:15] LABS: Glucose - Point of Care 195 mg/dl (70-99)
[2024-04-11 22:41] VITALS: BP 146/66
[2024-04-12] MEDS: LOVENOX 60 MG SC ×2 (02:54→14:05)
[2024-04-12] MEDS: SYNTHROID 50 MCG PO (02:55)
[2024-04-12 03:06] VITALS: BP 156/64
[2024-04-12 03:09] VITALS: BMI 22.5
[2024-04-12 07:19] LABS: Glucose - Point of Care 135 mg/dl (70-99)
[2024-04-12] MEDS: NOVOLOG FLEXPEN-LOW RESISTANCE SC ×2 (07:20→11:16)
[2024-04-12 07:36] VITALS: BP 151/76
[2024-04-12] MEDS: SPIRIVA RESPIMAT 2.5 MCG 2 PUFF INH (07:43)
[2024-04-12] MEDS: SYMBICORT 80/4.5 MCG INHALER 2 PUFF INH (07:43)
[2024-04-12] MEDS: THERAGRAN 1 TABLET PO (09:06)
[2024-04-12] MEDS: LEXAPRO 10 MG PO (09:06)
[2024-04-12] MEDS: PROTONIX 20 MG PO (09:06)
[2024-04-12] MEDS: CRESTOR 40 MG PO (09:06)
[2024-04-12] MEDS: FEOSOL 325 MG PO (09:06)
[2024-04-12] MEDS: ZITHROMAX 500 MG PO (09:06)
[2024-04-12] MEDS: COREG 6.25 MG PO (09:06)
--- NOTE | 2024-04-12 09:10 | W.PN.PUL3 ---
Today's Communication / Plan
-
Continue with therapeutic Lovenox, and DC home on Eliquis as per hematology
Recs appreciated by heme/onc
Continue with antibiotics for total of 7 days
Monitor procal for trending power (0.73 on 04/09/2024)
Maintain SpO2 88-95%
Up OOB as tolerated
PT/OT
According to family, patient is sedentary at home and this likely contributed to his VTE
Patient did not appear for discharge home today, we will now sign off. Follow-up with Dr. Brooke in the office (last visit 02/24/2024)
Assessment
-
73-year-old male with extremely complex medical history including coronary disease with stent, diabetes, AAA status post EVAR, bacteremia status post AICD extraction October 2023 followed by antibiotics, history of pulmonary embolism around October 2023?
On 3 months of anticoagulation, with recent hospital stay for fever of unknown origin, discharged 04/06. Now returns with progressive shortness of breath. CT chest obtained reveals persistent thromboembolic disease. Patient is extremely poor
historian. Some records states he is taking Eliquis. He could not confirm to me that he was taking his blood thinner. We are asked to comment on his pulmonary process
Impression:
Acute RLL pulmonary embolism
Chronicity unclear
Compliance with Eliquis unclear, although patient reports that he has been using it as directed
Apparent thromboembolic disease October 2023 at [facility]?
Bilateral patchy interstitial changes
Nodular, bronchiolitic
History of waxing waning nodules in the past
Recent ICD infection with bacteremia
Requiring antibiotics with PICC line, removal of AICD
Treated at [facility]?
Renal insufficiency, creatinine 1.4, CKD - Cr improving
Anemia
Elevated troponin � peaked at 0.061 on 04/09/2024
Pulmonary hypertension, PA pressure 50
Normal biventricular function, per echo 04/05/2024
Conditions present prior to admission
History of AAA, status post EVAR
Coronary disease with PCI in the past
Diabetes
Hypertension/hyperlipidemia
Hypothyroidism
Severe COPD/emphysema
FEV1 47%, DLCO 33%
On home oxygen, noncompliant
Obstructive sleep apnea with nocturnal hypoxia
Intolerant of CPAP
40+ pack-year history of smoking quit 2015
Plan/recommendations
At this time, patient with extremely complex medical history
At one point patient states he was not taking his blood thinner, but records suggest that he is
Outpatient records also suggest that patient only took 3 months of anticoagulation, unclear if this continued past October
It also appears that imaging that confirmed thromboembolic disease was either at [facility] or [facility]
Patient was treated for AICD, bacterial infection at [facility] recently with PICC line. Details unclear
Chest exam had coarse breath sounds, sounds improved today
Patient with baseline poor pulmonary function with moderate COPD and severe gas exchange capacity defect which is moderate when accounting for alveolar volume involved in gas exchange (post�bronchodilator FEV1: 1.27 L / 51% predicted, DLco: 33%,
DLco/VA: 45%)
He is on chronic Trelegy inhaler therapy which should be resumed on discharge
Significant smoking history noted
Moving forward
not sure whether thromboembolic disease represents new disease or unresponsive to current disease, however considering that this thrombus is in a different distribution compared to prior imaging from October 2023 (it is more proximal now), this suggest
that this is an acute PE
Patient is not clear as to whether he has been taking his Eliquis therapy, but today (04/11/2024) he says that he has been taking up until his current hospitalization
Would resume anticoagulation as per hematology (they recommend Lovenox while inpatient and discharging home on Eliquis)
Furthermore, his pulmonary nodules appear to wax and wane in the past
This raise the possibility of aspiration, immune disease, inflammatory disease, embolic disease, especially given his recent bacteremia with AICD
Given the concern for multifocal pneumonia on his CTA chest from 04/09/2024, recommend a 7-day course of antibiotics - currently on ceftriaxone/Zithromax (monitor QTc: 477ms on 04/09/2024)
[employer] performed VSE yesterday showing mild pharyngeal dysphagia with no penetration or aspiration noted; continue diet as per [employer]
Inflammatory markers are elevated (CRP: 59.7+ ESR: 52)
Haptoglobin is slightly elevated at 278
LDH is WNL at 204
Given questionable history of endocarditis, bacteremia, anemia, if patient becomes febrile with worsening leukocytosis then would consider POLLY -he has remained afebrile so this can be deferred for now
Presently remains on therapeutic Lovenox, hematology following
Unclear why patient has anemia
Patient is overdue for endoscopy - this should be reviewed as an outpatient
Given thromboembolic disease, would recommend age-appropriate cancer screening
The above was reviewed at length with patient and his son and brother by Dr. Do
Patient being prepared for discharge home today -we will now sign off. Thank you for allowing us to be involved in the care of this patient. Outpatient follow-up will be arranged
Total time spent today was 36 minutes for this encounter. Time includes reviewing laboratory test/imaging results, reviewing pertinent medical records, obtaining and reviewing medical history, performing an appropriate exam, ordering medications,
tests and procedures. Time also includes documentation of this encounter, coordinating patient care and communicating with other healthcare professionals. Total time does not include separately billed tests performed on this date of service.
Subjective Data
-
Date of Service:
Date of Service: April 12, 2024
Chief Complaint: Pulmonary Follow Up
Subjective:
Seen and evaluated today at bedside. On room air. Feels well today without shortness of breath or shortness breath with activity. Has an intermittent cough with off-white colored phlegm production. Denies chest pain, ORTEGA, abdominal pain, nausea,
fevers or chills.
Review of Systems
General: Other (Negative unless mentioned above)
Objective Data
Data Reviewed
Vital Signs / I&O / Oxygen:
Vital Signs
Temp Pulse Resp BP Pulse Ox
98.0 F 63 14 151/76 95
04/12/24 07:36 12/31/24 07:48 04/12/24 07:48 04/12/24 07:36 04/12/24 07:48
Intake and Output
04/11/24 04/12/24 04/13/24
06:59 06:59 06:59
Intake Total 624 / 624 410 / 410 420 / 420
Output Total 1700 / 1700 500 / 500
Balance -1076 / -1076 -90 / -90 420 / 420
SaO2 95
Nasal Cannula flow liters per 2
minute
Physical Exam
General: Respiratory Distress (negative), Comfortable, Chills (negative) and Sweats (negative)
HEENT: Normocephalic and Anicteric
Cardiovascular: S1-S2, Peripheral Edema (negative) and Other (Distant cardiac sounds)
Respiratory: Wheeze (negative), Crackles (negative), Rhonchi (negative) and Non-Labored Respirations
GI: Soft, Non Distended, Non Tender and Normal Bowel Sounds
Neurology: AO x 3 and Tremors (negative)
Skin: Warm, Dry, Cyanosis (negative) and Jaundice (negative)
Labs/Micro/Reports
Lab Data
04/11/24 05:38
04/11/24 05:38
Laboratory Results
04/11/24
13:27
APTT 92.8 H
--- NOTE | 2024-04-12 09:18 | W.PN.ONC ---
Today's Communication / Plan
-
Unclear if this really represents Eliquis failure, as his compliance has been questioned, and he was surely off a/c for some time earlier this month for AICD explant. While current PEs are thought to be new since October, the acuity is unknown.
We discussed consideration for Lovenox as outpatient, but he's reluctant to give himself injections.
His respiratory issues are likely mostly related to pneumonia, and anemia, less likely small PEs.
Would continue Lovenox while inpatient, but I think it's reasonable to switch back to Eliquis 5mg BID at time of discharge.
His iron def anemia is concerning. Heme testing of stool has been ordered, pending.
Iron def anemia and recurrent VTE raises suspicion for underlying malignancy.
He's due for colonoscopy with Dr. Paul, which I encouraged him to schedule. If heme+, t/c inpatient GI consult.
Continue oral iron, avoid IV iron in the setting of infections.
OOB
Impression
Impression
Hypoxemic respiratory insufficiency
Multifocal community-acquired pneumonia
Recurrent PE, acuity unclear - specifics of first pulmonary embolism for which Eliquis was initiated 11/09/2023 is not clear
History of pulmonary nodule
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
CAD s/p PCI
Anemia multifactorial including MIKKI with ferritin ~16, inflammation with elevated ESR. No B12 or folate deficiency.
Plan
Plan
Patient reports compliance with Eliquis, though has had a complicated course since October 2023, including COVID+, prolonged antibiotics for bacteremia and staph endocarditis/AICD lead infection, with ultimate AICD explant in early Mar 2024. Labs noted
for progressive iron def anemia, without obvious bleeding source. Now admitted with shortness of breath, and CT imaging showing multifocal pneumonia, bronchiolitis, and segmental/subsegmental pulm emboli.
Unclear if this really represents Eliquis failure, as his compliance has been questioned, and he was surely off a/c for some time earlier this month for AICD explant. While current PEs are thought to be new since October, the acuity is unknown.
We discussed consideration for Lovenox as outpatient, but he's reluctant to give himself injections.
His respiratory issues are likely mostly related to pneumonia, and anemia, less likely small PEs.
Would continue Lovenox while inpatient, but I think it's reasonable to switch back to Eliquis 5mg BID at time of discharge.
His iron def anemia is concerning. Heme testing of stool has been ordered, pending.
Iron def anemia and recurrent VTE raises suspicion for underlying malignancy.
He's due for colonoscopy with Dr. Paul, which I encouraged him to schedule. If heme+, t/c inpatient GI consult.
Continue oral iron, avoid IV iron in the setting of infections.
OOB
Subjective/Objective
Subjective/Objective
no complaints currently, not getting out of bed
Vital Signs:
Vital Signs
Temp Pulse Resp BP Pulse Ox
98.0 F 63 14 151/76 95
04/12/24 07:36 04/12/24 07:48 04/12/24 07:48 04/12/24 07:36 04/12/24 07:48
Lab Results:
Laboratory Data
WBC 12.1 10^3/uL (4.8-10.8) H 04/11/24 05:38
Hgb 7.8 g/dL (13.0-18.0) L 04/11/24 05:38
Plt Count 191 10^3/uL (130-400) 04/11/24 05:38
APTT 92.8 Sec (23.4-35.0) H 04/11/24 13:27
eGFR > 60.00 04/11/24 05:38
[2024-04-12 11:05] LABS: Haptoglobin 278 mg/dL (30-200)
[2024-04-12 11:14] LABS: Glucose - Point of Care 159 mg/dl (70-99)
[2024-04-12 11:15] VITALS: BP 117/63
--- NOTE | 2024-04-12 12:25 | W.PN.HOSP.TC ---
Today's Communication/Plan
-
DC home
Assessment / Plan
Assessment / Plan
#Acute hypoxemic respiratory insufficiency
#Acute pulmonary embolism/Eliquis failure
#Multifocal community-acquired pneumonia
-Unclear as to etiology of hypoxia potentially could be related to PE/pneumonia/pulmonary nodules. But now resolved as he has been on room air per EMR since 04/10 at 10am.
-- Pulmonary following
-- 2D echo per cardiology demonstrating inferior lateral hypokinesis which is unchanged from prior echo from a week ago, this does not appear to be an acute finding
--Hem/Onc following, believed to be true eliquis failure, rec on dc coumadin or lmwh dosing, additionally, they have ordered an hypercoag work up.
--Will need outpatient heme/cards/pulm follow up
#Elevated troponin
-Nonischemic myocardial injury
-2d echo without evidence of RV strain from PE
-No ischemic ECG changes, flat troponin trend, no chest pain
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
#CAD s/p PCI
#S/P AICD extraction
-Home GDMT includes carvedilol, high intensity statin
-Not currently on antiplatelet therapy due to DOAC for history of PE
-Not currently on any standing dose of loop diuretic
-Appears euvolemic
#NIDDM
-Not currently on any antihyperglycemic regimen
-Will start ISS with Accu-Cheks
-BG 140-180
-CCDiet
#Hypothyroidism
-Continue Levothyroxine 50mcg
-No signs or symptoms of thyroid dysfunction at this time
#Iron deficiency anemia
-Diagnosed on recent hospital stay, was planned to have outpatient colonoscopy soon
-Will continue with oral iron and trend CBC
#COPD
-No recent PFTs; Home meds include Trelegy Ellipta
-No signs or symptoms of COPD flare here
#GERD C/B Peraza's esophagus
-Unknown if significant dysplasia seen on pathology
-Home medications include PPI regimen
#AAA s/p EVAR
-Remains on high intensity statin
DVT prophylaxis: Heparin drip
Diet: Regular
CODE STATUS: Full code
Disposition: Admit to telemetry
I spoke with his Renée on the day of discharge. She states that he is compliant with Eliquis. This has reinforced decision that he should be discharged home with Lovenox twice a day therapeutic dosing. When she picks him up she will stop by
the nursing station to also ask for lovenox teaching.
I also spoke with Meir at bedside and had a patient centered discussion about compliance risk versus benefit. He understands that there is concern that he might have failed Eliquis. He understands that if he develops a blood clot in the future
this could lead to respiratory arrest and cardiac arrest. He understand that he needs to be compliant with Lovenox and is agreeable with going home with Lovenox rather than Eliquis.
Anticipated Discharge: Today
Subjective/Interval History
-
Date of Service: April 12, 2024
seen and examined. no new complaints. no acute overnight events
Objective Data
-
Vital Signs:
Vital Signs
Temp Pulse Resp BP Pulse Ox
98.1 F 69 17 117/63 97
04/12/24 11:15 04/12/24 11:15 04/12/24 11:15 04/12/24 11:15 04/12/24 11:15
I&O
04/11/24 04/12/24 04/13/24
06:59 06:59 06:59
Intake Total 624 / 624 410 / 410 420 / 420
Output Total 1700 / 1700 500 / 500
Balance -1076 / -1076 -90 / -90 420 / 420
Physical Exam
-
General: Well Developed and Well Nourished
HEENT: Normocephalic and Atraumatic
Respiratory: Clear to Auscultation
Cardiac: Regular Rhythm and S1/S2
GI: Soft, Nontender, Nondistended and Normal Bowel Sounds
Skin: Warm
Neuro: Awake, Alert, Oriented and AO x 3
Psych: Calm
--- NOTE | 2024-04-12 12:41 | W.DCSUMMARY ---
Discharge Summary
Discharge Data
Date of Admission: 04/09/24
Date of Discharge: 04/12/24
-
Pending Results: Yes
Additional Pending Results:
Hypercoag work up
Hospital Course
Presented with complaints of shortness of breath and required supplemental oxygen. COVID flu were negative. CT chest did show right lower lobe segmental and subsegmental pulmonary artery emboli without signs of right heart strain. There was also
findings consistent with multifocal pneumonia that were worst in the lower lobes therefore started on broad-spectrum IV antibiotics.
Was seen by pulmonary and hematology oncology. Pulmonary recommended to transition antibiotics and to complete full 7-day course. While hematology was concern for potential Eliquis failure as was compliant on Eliquis at home for previous pulmonary
embolism. Therefore initiated on heparin drip and eventually transition to Lovenox therapeutic twice a day dosing. Had a discussion about eliquis vs enoxparin, is agreeable to go home with enoxparin and understand the importance of complaince and
taking this medication twice a .day
Will need to continue to follow-up with hematology/oncology along with pulmonary and PCP.
Hematology/oncology will continue to determine if this is true Eliquis failure and will follow-up on additional hypercoagulable laboratory testing that was completed as the results are not back.
Additionally, when initially presented was found to have high cardiac markers that trended down. EKG was nonischemic. Therefore, outpatient cardiology follow-up.
Hemoglobin has been stable on discharge was 7.8. Will need outpatient GI follow-up for C-scope and upper endoscopy.
Able to wean off oxygen to room air with improvement in symptomatology therefore discharged home.
2c echo
CONCLUSIONS
Normal left ventricular chamber size. Normal left ventricular systolic
function. Left ventricular ejection fraction is 55%. The distal inferolateral
wall appears hypokinetic. Mild concentric left ventricular hypertrophy.
Normal right ventricular size. Normal right ventricular systolic function.
Mild tricuspid regurgitation.
Compared to the previous echo from Apr 05 2024, which was reviewed, there is no
significant change.
CTPE
IMPRESSION:
1. Right lower lobe segmental and subsegmental pulmonary artery emboli. No overt CT evidence for right heart strain.
2. Findings suggesting multifocal pneumonia worst in the lower lobes bilaterally. Recommend follow-up imaging after treatment to rule out underlying mass. The [facility] Pulmonary Nodule Advisory Board will be notified.
Of note, the right lower lobe pulmonary arterial emboli are in a slightly different distribution (involving different segmental/subsegmental pulmonary arteries) compared to the right lower lobe pulmonary arterial emboli seen in retrospect on prior
CTA abdomen/pelvis exam from 11/06/2023. This suggests that the current pulmonary emboli are likely acute.
DVT STudy
IMPRESSION: No evidence of deep venous thrombosis bilaterally.
Discharge Plan
-
Patient Disposition: Home with Home Care
Discharge Diagnosis/Procedures: Acute hypoxemic respiratory failure secondary to pneumonia and pulmonary embolus
Condition: Good
Diet: As tolerated
Activity: As tolerated
Activity Restrictions/Additional Instructions:
Presented with complaints of shortness of breath and required supplemental oxygen. COVID flu were negative. CT chest did show right lower lobe segmental and subsegmental pulmonary artery emboli without signs of right heart strain. There was also
findings consistent with multifocal pneumonia that were worst in the lower lobes therefore started on broad-spectrum IV antibiotics.
Was seen by pulmonary and hematology oncology. Pulmonary recommended to transition antibiotics and to complete full 7-day course. While hematology was concern for potential Eliquis failure as was compliant on Eliquis at home for previous pulmonary
embolism. Therefore initiated on heparin drip and eventually transition to Lovenox therapeutic twice a day dosing. Had a discussion about eliquis vs enoxparin, is agreeable to go home with enoxparin and understand the importance of complaince and
taking this medication twice a .day
Will need to continue to follow-up with hematology/oncology along with pulmonary and PCP.
Hematology/oncology will continue to determine if this is true Eliquis failure and will follow-up on additional hypercoagulable laboratory testing that was completed as the results are not back.
Additionally, when initially presented was found to have high cardiac markers that trended down. EKG was nonischemic. Therefore, outpatient cardiology follow-up.
Hemoglobin has been stable on discharge was 7.8. Will need outpatient GI follow-up for C-scope and upper endoscopy.
Able to wean off oxygen to room air with improvement in symptomatology therefore discharged home.
2c echo
CONCLUSIONS
Normal left ventricular chamber size. Normal left ventricular systolic
function. Left ventricular ejection fraction is 55%. The distal inferolateral
wall appears hypokinetic. Mild concentric left ventricular hypertrophy.
Normal right ventricular size. Normal right ventricular systolic function.
Mild tricuspid regurgitation.
Compared to the previous echo from Apr 05 2024, which was reviewed, there is no
significant change.
CTPE
IMPRESSION:
1. Right lower lobe segmental and subsegmental pulmonary artery emboli. No overt CT evidence for right heart strain.
2. Findings suggesting multifocal pneumonia worst in the lower lobes bilaterally. Recommend follow-up imaging after treatment to rule out underlying mass. The [facility] Pulmonary Nodule Advisory Board will be notified.
Of note, the right lower lobe pulmonary arterial emboli are in a slightly different distribution (involving different segmental/subsegmental pulmonary arteries) compared to the right lower lobe pulmonary arterial emboli seen in retrospect on prior
CTA abdomen/pelvis exam from 11/06/2023. This suggests that the current pulmonary emboli are likely acute.
DVT STudy
IMPRESSION: No evidence of deep venous thrombosis bilaterally.
Referrals:
Rodger Paul MD [Family Provider] -
Velvet Ford DO [Active] - in two to four weeks
Guzman Barrett MD [Active] - in three to four weeks
Antolin Fuchs MD [Active] - in two to four weeks
Prescriptions:
New
rosuvastatin 20 mg Tablet
40 mg PO DAILY Qty: 30 0RF
enoxaparin 60 mg/0.6 mL Syringe
60 mg SC Q12H Qty: 300 0RF
Continued
levothyroxine [Levoxyl] 50 MCG tablet
50 mcg PO DAILY
escitalopram oxalate [Lexapro] 10 mg Tablet
10 mg PO DAILY
carvedilol 6.25 mg Tablet
6.25 mg PO BID
pantoprazole 20 mg Tablet,Delayed Release (Dr/Ec)
20 mg PO DAILY
Trelegy Ellipta 100-62.5-25 mcg Blister With Device
1 inh INHALATION R DAILY
Eliquis 5 mg tablet
5 mg PO BID
ferrous sulfate 325 mg (65 mg iron) tablet
325 mg PO DAILY 30 Days Qty: 30 1RF
atorvastatin [Lipitor] 40 mg Tablet
40 mg PO DAILY
metformin 500 mg Tablet
500 mg PO BID
tolterodine 4 mg Capsule,Extended Release 24hr
4 mg PO DAILY
acetaminophen [Tylenol 8 Hour] 650 mg Tablet Extended Release
1,300 mg PO Q12H
tamsulosin [Flomax] 0.4 mg Capsule
0.4 mg PO HS
cefuroxime axetil 500 mg Tablet
500 mg PO DAILY
Discharge Orders:
Discharge Patient (As Directed); Ordered 04/12/24
Ordered By: Sarthak Huber
Discharge Date and Time
Print Language: YORUBA
--- NOTE | 2024-04-12 13:31 | CM ---
Discharge order placed. CM went over what IMM is for. Patient verbalized understanding and signed. Patient will have a family come pick him up.
DISCHARGE PLAN: Discharge to home with . Family member will provide transportation.
[2024-04-14 02:28] LABS: Beta-2-Glycoprotein I Ab. IgG >150 SGU (<=20); Beta-2-Glycoprotein I Ab. IgM <10 SMU (<=20)
[2024-04-14 07:33] LABS: Cardiolipin IgA Antibody <10 APL (<=11); Cardiolipin IgM Antibody 10 MPL (<=12); Cardiolipin Igg Antibody <10 GPL (<=14)
[2024-04-15 00:04] LABS: Anti-Xa Qualitative Interp Present (Not Present); Anticoagulant Med Neutralizati DOAC-Stop (Not Performed); Hexagonal Phospholipid Confirm 16.1 s (<=7.9); Neutralized PTT-LA Ratio 1.41 (<=1.20); Neutralized dRVTT Screen Ratio Not Performed (<=1.20); PTT-LA Ratio 1.43 (<=1.20); Prothrombin Time 15.2 s (12.0-15.5); Thrombin Time 18.2 s (<=19.5); dRVTT 1.1 Mix Ratio Not Performed (<=1.20); dRVTT Confirmation Ratio Not Performed (<=1.20); dRVTT Screen Ratio 0.97 (<=1.20)
== END 2024-04-12 14:33 | disposition home health service (06) | DRG 175 ==
LOC: 1 ACUTE 09:51
PROVIDERS: Nurse Practitioner Acute Care; ADMITTING PHYSICIAN Internal Medicine; ATTENDING PHYSICIAN Hospitalist; CONSULT PHYSICIAN Internal Medicine Critical Care Medicine; CONSULT PHYSICIAN Internal Medicine Hematology & Oncology; EMERGENCY PHYSICIAN Student in an Organized Health Care Education/Training Program; FAMILY PHYSICIAN Specialist
DX: I26.93 Single subsegmental thrombotic pulmonary embolism without acute cor pulmonale (principal); J18.9 Pneumonia, unspecified organism; J96.01 Acute respiratory failure with hypoxia; I13.0 Hypertensive heart and chronic kidney disease with heart failure and stage 1 through stage 4 chronic kidney disease, or unspecified chronic kidney disease; I5A Non-ischemic myocardial injury (non-traumatic); I50.32 Chronic diastolic (congestive) heart failure; E03.9 Hypothyroidism, unspecified; E11.22 Type 2 diabetes mellitus with diabetic chronic kidney disease; F41.9 Anxiety disorder, unspecified; I25.10 Atherosclerotic heart disease of native coronary artery without angina pectoris; K21.9 Gastro-esophageal reflux disease without esophagitis; K22.70 Barrett's esophagus without dysplasia; I25.5 Ischemic cardiomyopathy; D50.9 Iron deficiency anemia, unspecified; R91.1 Solitary pulmonary nodule; R91.8 Other nonspecific abnormal finding of lung field; J43.9 Emphysema, unspecified; N40.0 Benign prostatic hyperplasia without lower urinary tract symptoms; G47.30 Sleep apnea, unspecified; K44.9 Diaphragmatic hernia without obstruction or gangrene; E78.00 Pure hypercholesterolemia, unspecified; I27.20 Pulmonary hypertension, unspecified; R70.0 Elevated erythrocyte sedimentation rate; G47.33 Obstructive sleep apnea (adult) (pediatric); N18.9 Chronic kidney disease, unspecified; I25.2 Old myocardial infarction; Z79.01 Long term (current) use of anticoagulants; Z86.711 Personal history of pulmonary embolism; Z95.810 Presence of automatic (implantable) cardiac defibrillator; Z86.79 Personal history of other diseases of the circulatory system; Z95.5 Presence of coronary angioplasty implant and graft; Z87.442 Personal history of urinary calculi; Z87.891 Personal history of nicotine dependence; Z11.52 Encounter for screening for COVID-19; Z79.890 Hormone replacement therapy; Z83.3 Family history of diabetes mellitus; Z82.49 Family history of ischemic heart disease and other diseases of the circulatory system; Z99.81 Dependence on supplemental oxygen; Z91.199 Patient's noncompliance with other medical treatment and regimen due to unspecified reason
CPT/HCPCS: 93308; 71275; 74230; 80048; 80053; 82962; 83010; 83605; 83615; 83735; 83880; 84145; 84484; 85025; 85027; 85045; 85520; 85598; 85610; 85613; 85652; 85670; 85730; 86140; 86146; 86147; 87502; 87811; 92611; 93005; 93321; 93325; 93970; 94640; 96365; 96366; 96375; 99291; Q9967

== ENCOUNTER → 2024-04-25 11:28 | Outpatient (REF) | payer MEDICARE, OTHER, SELFPAY | LOC: REG 11:28 | PROVIDERS: ATTENDING PHYSICIAN Internal Medicine Infectious Disease | DX: T82.7XXD Infection and inflammatory reaction due to other cardiac and vascular devices, implants and grafts, subsequent encounter (principal) | CPT/HCPCS: 36415; 87040 ==

== ENCOUNTER → 2024-05-06 10:53 | Outpatient (REF) | payer MEDICARE, OTHER, SELFPAY ==
[2024-05-06 11:55] LABS: % Basophils 0.2 % (0-2); % Immature Granulocytes 0.2 % (0-0.5); % Lymphocytes 28.2 % (20.5-51.1); % Monocytes 8.3 % (1.7-9.3); % Neutrophils 61.1 % (42.2-75.2); Absolute Eosinophils 0.1 10^3/uL (0-0.7); Absolute Lymphocytes 1.3 10^3/uL (1.2-3.4); Absolute Monocytes 0.4 10^3/uL (0.1-0.6); Absolute Neutrophils 2.7 10^3/uL (1.4-6.5); Hematocrit 30.9 % (39.0-52.0); Mean Corp Hgb Conc. 29.1 g/dL (33.0-37.0); Mean Corpuscular Hgb 21.3 pg (27.0-31.0); Mean Platelet Volume 10.3 fL (7.4-10.4); Nucleated Red Blood Cells % 0 % (-); Platelet Count 208 10^3/uL (130-400); Red Blood Cell Count 4.23 10^6/uL (4.70-6.10); Red Cell Dist. Width 19.3 % (11.5-14.5); White Blood Cell Count 4.4 10^3/uL (4.8-10.8)
[2024-05-06 12:24] LABS: Iron 47 ug/dl (49-181)
[2024-05-06 12:34] LABS: Percent Saturation 11 % (20-50); Total Iron Binding Capacity 422 ug/dl (261-462)
[2024-05-06 12:51] LABS: Ferritin 9.7 ng/ml (17.9-464.0)
== END ==
LOC: REG 10:53
PROVIDERS: ATTENDING PHYSICIAN Specialist; FAMILY PHYSICIAN Family Medicine; OTHER PHYSICIAN Internal Medicine Infectious Disease
DX: D64.9 Anemia, unspecified (principal); T82.7XXD Infection and inflammatory reaction due to other cardiac and vascular devices, implants and grafts, subsequent encounter
CPT/HCPCS: 36415; 82728; 83540; 83550; 85025; 87040

== ENCOUNTER 2024-05-27 06:12 | Day surgery (SDC) | payer MEDICARE, OTHER, SELFPAY ==
[2024-05-27 09:29] LABS: Glucose - Point of Care 89 mg/dl (70-99)
[2024-05-27 09:34] VITALS: BMI 22.3
[2024-05-27 09:35] VITALS: BP 156/87; BMI 22.3
[2024-05-27 11:50] VITALS: BP 154/78
[2024-05-27 12:08] VITALS: BP 186/85
[2024-05-27 12:15] VITALS: BP 176/89
[2024-05-27 12:20] VITALS: BP 172/89
== END 2024-05-27 12:39 | disposition home or self-care (01) ==
LOC: SDS 06:12
PROVIDERS: ATTENDING PHYSICIAN Specialist
DX: Z12.11 Encounter for screening for malignant neoplasm of colon (principal); K57.30 Diverticulosis of large intestine without perforation or abscess without bleeding; K31.819 Angiodysplasia of stomach and duodenum without bleeding; D62 Acute posthemorrhagic anemia; Z86.0101 Personal history of adenomatous and serrated colon polyps; Z87.19 Personal history of other diseases of the digestive system; Z98.890 Other specified postprocedural states
CPT/HCPCS: 43239; 43255; G0105; 88305; 82962

== ENCOUNTER → 2024-06-24 12:50 | Outpatient (REF) | payer MEDICARE, OTHER, SELFPAY ==
[2024-06-24 14:33] LABS: % Basophils 0.7 % (0-2); % Eosinophils 2.2 % (0-6); % Immature Granulocytes 0.2 % (0-0.5); % Lymphocytes 27.3 % (20.5-51.1); % Monocytes 9.4 % (1.7-9.3); % Neutrophils 60.2 % (42.2-75.2); Absolute Eosinophils 0.1 10^3/uL (0-0.7); Absolute Lymphocytes 1.1 10^3/uL (1.2-3.4); Absolute Monocytes 0.4 10^3/uL (0.1-0.6); Absolute Neutrophils 2.4 10^3/uL (1.4-6.5); Hematocrit 30.1 % (39.0-52.0); Hemoglobin 8.7 g/dL (13.0-18.0); Mean Corp Hgb Conc. 28.9 g/dL (33.0-37.0); Mean Corpuscular Volume 76.2 fL (80.0-94.0); Mean Platelet Volume 10.2 fL (7.4-10.4); Nucleated Red Blood Cells % 0 % (-); Platelet Count 179 10^3/uL (130-400); Red Blood Cell Count 3.95 10^6/uL (4.70-6.10); Red Cell Dist. Width 21.2 % (11.5-14.5); White Blood Cell Count 4.1 10^3/uL (4.8-10.8)
[2024-06-24 14:41] LABS: D-Dimer 0.78 ug/mlFEU (0.00-0.50)
[2024-06-24 14:44] LABS: Acanthocytes 1+; Anisocytosis 1+; Hypochromasia 1+; Normal RBC Morphology No; Ovalocytes 1+; Polychromasia 1+
[2024-06-24 14:51] LABS: ALT (SGPT) 16 U/L (0-50); AST (SGOT) 18 U/L (17-59); Albumin 4.6 g/dl (3.5-5.0); Alkaline Phosphatase 50 U/L (38-126); Blood Urea Nitrogen 17 mg/dl (9-20); Calcium 9.8 mg/dl (8.4-10.2); Carbon Dioxide 28 mmol/L (22-30); Chloride 104 mmol/L (98-107); Glucose 92 mg/dl (70-99); Potassium 4.3 mmol/L (3.5-5.1); Sodium 141 mmol/L (135-145); Total Bilirubin 0.6 mg/dl (0.2-1.3); eGFR > 60.00
[2024-06-24 15:02] LABS: Microalbumin/creatinine Ratio 68.3 mg/g
[2024-06-25 09:26] LABS: Glycohemoglobin (HgbA1c) 4.9 % (4.0-5.6)
== END ==
LOC: REG 12:50
PROVIDERS: ATTENDING PHYSICIAN Nurse Practitioner Family; FAMILY PHYSICIAN Family Medicine; REFERRING PHYSICIAN Internal Medicine Hematology & Oncology
DX: E11.9 Type 2 diabetes mellitus without complications (principal); R80.9 Proteinuria, unspecified; D68.62 Lupus anticoagulant syndrome; I82.91 Chronic embolism and thrombosis of unspecified vein
CPT/HCPCS: 36415; 80053; 81240; 81241; 82043; 82570; 83036; 85025; 85300; 85305; 85379; 85610; 85613; 85730; 86146; 86147

== ENCOUNTER → 2024-07-07 10:37 | Outpatient (REF) | payer MEDICARE, OTHER, SELFPAY ==
[2024-07-07 12:05] LABS: Blood Urea Nitrogen 22 mg/dl (9-20); Calcium 10.1 mg/dl (8.4-10.2); Carbon Dioxide 31 mmol/L (22-30); Chloride 109 mmol/L (98-107); Glucose 100 mg/dl (70-99); Magnesium 2.1 mg/dl (1.6-2.3); Potassium 4.7 mmol/L (3.5-5.1); Sodium 146 mmol/L (135-145); eGFR > 60.00
== END ==
LOC: REG 10:37
PROVIDERS: ATTENDING PHYSICIAN Internal Medicine Cardiovascular Disease; FAMILY PHYSICIAN Family Medicine
DX: E78.5 Hyperlipidemia, unspecified (principal)
CPT/HCPCS: 36415; 80048; 83735

== ENCOUNTER → 2024-07-15 15:43 | Outpatient (REF) | payer MEDICARE, OTHER, SELFPAY | LOC: RCS 15:43 | PROVIDERS: ATTENDING PHYSICIAN Internal Medicine Cardiovascular Disease; FAMILY PHYSICIAN Family Medicine; REFERRING PHYSICIAN Internal Medicine Cardiovascular Disease | DX: I25.5 Ischemic cardiomyopathy (principal) | CPT/HCPCS: 93306 ==

== ENCOUNTER → 2024-08-08 17:50 | Outpatient (REF) | payer MEDICARE, OTHER, SELFPAY | LOC: MRI 17:50 | PROVIDERS: ATTENDING PHYSICIAN Surgery; FAMILY PHYSICIAN Family Medicine | DX: R97.20 Elevated prostate specific antigen [PSA] (principal) | CPT/HCPCS: 72197; A9575 ==

== ENCOUNTER → 2024-08-18 12:23 | Outpatient (REF) | payer MEDICARE, OTHER, SELFPAY | LOC: RAD 12:23 | PROVIDERS: ATTENDING PHYSICIAN Surgery; FAMILY PHYSICIAN Family Medicine | DX: Z87.442 Personal history of urinary calculi (principal) | CPT/HCPCS: 74018 ==

== ENCOUNTER → 2024-11-08 10:40 | Outpatient (REF) | payer MEDICARE, OTHER, SELFPAY ==
[2024-11-08 11:57] LABS: Blood Urea Nitrogen 20 mg/dl (9-20); Calcium 9.6 mg/dl (8.4-10.2); Carbon Dioxide 30 mmol/L (22-30); Chloride 108 mmol/L (98-107); Glucose 125 mg/dl (70-99); Potassium 4.6 mmol/L (3.5-5.1); Sodium 142 mmol/L (135-145); eGFR > 60.00
== END ==
LOC: REG 10:40
PROVIDERS: ATTENDING PHYSICIAN Internal Medicine; FAMILY PHYSICIAN Family Medicine
DX: Z01.818 Encounter for other preprocedural examination (principal)
CPT/HCPCS: 36415; 80048

== ENCOUNTER → 2024-11-10 10:38 | Outpatient (REF) | payer MEDICARE, OTHER, SELFPAY | LOC: RAD 10:38 | PROVIDERS: ATTENDING PHYSICIAN Nurse Practitioner Adult Health | DX: I26.93 Single subsegmental thrombotic pulmonary embolism without acute cor pulmonale (principal) | CPT/HCPCS: 71275; Q9967 ==

== ENCOUNTER → 2024-12-29 07:00 | Outpatient (REF) | payer MEDICARE, OTHER, SELFPAY ==
[2024-12-29 08:03] LABS: INR 1.04; PT 14.1 Sec (11.4-14.6)
== END ==
LOC: REG 07:00
PROVIDERS: ATTENDING PHYSICIAN Internal Medicine Cardiovascular Disease; FAMILY PHYSICIAN Family Medicine
DX: D68.61 Antiphospholipid syndrome (principal); Z79.01 Long term (current) use of anticoagulants
CPT/HCPCS: 36415; 85610

== ENCOUNTER → 2025-01-03 06:49 | Outpatient (REF) | payer MEDICARE, OTHER, SELFPAY ==
[2025-01-03 07:45] LABS: INR 1.63; PT 19.6 Sec (11.4-14.6)
== END ==
LOC: REG 06:49
PROVIDERS: ATTENDING PHYSICIAN Internal Medicine Cardiovascular Disease; FAMILY PHYSICIAN Family Medicine
DX: D68.61 Antiphospholipid syndrome (principal); Z79.01 Long term (current) use of anticoagulants
CPT/HCPCS: 36415; 85610

== ENCOUNTER → 2025-01-09 06:50 | Outpatient (REF) | payer MEDICARE, OTHER, SELFPAY ==
[2025-01-09 07:58] LABS: INR 2.38; PT 26.0 Sec (11.4-14.6)
== END ==
LOC: REG 06:50
PROVIDERS: ATTENDING PHYSICIAN Internal Medicine Cardiovascular Disease; FAMILY PHYSICIAN Family Medicine
DX: D68.61 Antiphospholipid syndrome (principal); Z79.01 Long term (current) use of anticoagulants
CPT/HCPCS: 36415; 85610

== ENCOUNTER → 2025-01-17 07:12 | Outpatient (REF) | payer MEDICARE, OTHER, SELFPAY ==
[2025-01-17 08:25] LABS: INR 2.76; PT 29.2 Sec (11.4-14.6)
== END ==
LOC: REG 07:12
PROVIDERS: ATTENDING PHYSICIAN Internal Medicine Cardiovascular Disease; FAMILY PHYSICIAN Family Medicine
DX: D68.61 Antiphospholipid syndrome (principal); Z79.01 Long term (current) use of anticoagulants
CPT/HCPCS: 36415; 85610

== ENCOUNTER → 2025-01-31 10:16 | Outpatient (REF) | payer MEDICARE, OTHER, SELFPAY ==
[2025-01-31 11:01] LABS: Hematocrit 42.3 % (39.0-52.0); Hemoglobin 12.6 g/dL (13.0-18.0); Mean Corp Hgb Conc. 29.8 g/dL (33.0-37.0); Mean Corpuscular Volume 79.7 fL (80.0-94.0); Nucleated Red Blood Cells % 0 % (-); Platelet Count 188 10^3/uL (130-400); Red Cell Dist. Width 19.2 % (11.5-14.5)
[2025-01-31 11:08] LABS: INR 3.94; PT 38.1 Sec (11.4-14.6)
[2025-01-31 11:19] LABS: Glycohemoglobin (HgbA1c) 6.2 % (4.0-5.6)
[2025-01-31 11:32] LABS: Microalb - Urine Creatinine 129.600 mg/dl
[2025-01-31 11:38] LABS: Microalbumin, Random Urine 4.9 mg/dl (0.6-1.7)
[2025-01-31 11:52] LABS: ALT (SGPT) 57 U/L (0-50); AST (SGOT) 35 U/L (17-59); Albumin 4.1 g/dl (3.5-5.0); Alkaline Phosphatase 54 U/L (38-126); Blood Urea Nitrogen 23 mg/dl (9-20); Calcium 9.5 mg/dl (8.4-10.2); Carbon Dioxide 29 mmol/L (22-30); Chloride 108 mmol/L (98-107); Glucose 114 mg/dl (70-99); HDL Cholesterol 47 mg/dl; LDL Cholesterol, Calculated 33 mg/dl; Potassium 4.4 mmol/L (3.5-5.1); Sodium 143 mmol/L (135-145); Very Low Density Lipoprotein 26 mg/dl (0-30); eGFR 52.41
[2025-01-31 12:06] LABS: TSH 3.25 uIU/ml (0.47-4.68); Total Protein 6.9 g/dl (6.3-8.2)
== END ==
LOC: REG 10:16
PROVIDERS: ATTENDING PHYSICIAN Internal Medicine Cardiovascular Disease; FAMILY PHYSICIAN Nurse Practitioner Family
DX: D68.61 Antiphospholipid syndrome (principal); Z79.01 Long term (current) use of anticoagulants; E11.9 Type 2 diabetes mellitus without complications; R80.9 Proteinuria, unspecified; D50.9 Iron deficiency anemia, unspecified
CPT/HCPCS: 36415; 80053; 80061; 82043; 82570; 83036; 84443; 85025; 85610

== ENCOUNTER → 2025-02-07 09:49 | Outpatient (REF) | payer MEDICARE, OTHER, SELFPAY ==
[2025-02-07 10:56] LABS: INR 1.98; PT 22.7 Sec (11.4-14.6)
== END ==
LOC: REG 09:49
PROVIDERS: ATTENDING PHYSICIAN Internal Medicine Cardiovascular Disease; FAMILY PHYSICIAN Family Medicine
DX: D68.61 Antiphospholipid syndrome (principal); Z79.01 Long term (current) use of anticoagulants
CPT/HCPCS: 36415; 85610

== ENCOUNTER → 2025-02-14 09:38 | Outpatient (REF) | payer MEDICARE, OTHER, SELFPAY ==
[2025-02-14 11:06] LABS: INR 2.94; PT 30.6 Sec (11.4-14.6)
== END ==
LOC: REG 09:38
PROVIDERS: ATTENDING PHYSICIAN Internal Medicine Cardiovascular Disease; FAMILY PHYSICIAN Family Medicine
DX: D68.61 Antiphospholipid syndrome (principal); Z79.01 Long term (current) use of anticoagulants
CPT/HCPCS: 36415; 85610

== ENCOUNTER → 2025-03-07 09:41 | Outpatient (REF) | payer MEDICARE, OTHER, SELFPAY ==
[2025-03-07 10:46] LABS: INR 2.54; PT 27.4 Sec (11.4-14.6)
== END ==
LOC: REG 09:41
PROVIDERS: ATTENDING PHYSICIAN Internal Medicine Cardiovascular Disease
DX: D68.61 Antiphospholipid syndrome (principal); Z79.01 Long term (current) use of anticoagulants
CPT/HCPCS: 36415; 85610

== ENCOUNTER → 2025-03-16 10:14 | Outpatient (REF) | payer MEDICARE, OTHER, SELFPAY ==
[2025-03-16 11:41] LABS: INR 2.28; PT 24.8 Sec (11.4-14.6)
== END ==
LOC: REG 10:14
PROVIDERS: ATTENDING PHYSICIAN Internal Medicine Cardiovascular Disease
DX: D68.61 Antiphospholipid syndrome (principal); Z79.01 Long term (current) use of anticoagulants
CPT/HCPCS: 36415; 85610

== ENCOUNTER → 2025-04-04 09:08 | Outpatient (REF) | payer MEDICARE, OTHER, SELFPAY ==
[2025-04-04 10:04] LABS: INR 4.20; PT 40.8 Sec (11.4-14.6)
== END ==
LOC: RAD 09:08
PROVIDERS: ATTENDING PHYSICIAN Surgery Vascular Surgery; FAMILY PHYSICIAN Family Medicine; OTHER PHYSICIAN Internal Medicine Cardiovascular Disease
DX: I71.43 Infrarenal abdominal aortic aneurysm, without rupture (principal); I73.9 Peripheral vascular disease, unspecified; Z79.01 Long term (current) use of anticoagulants; D68.61 Antiphospholipid syndrome
CPT/HCPCS: 36415; 76770; 85610; 93922

== ENCOUNTER → 2025-04-11 10:03 | Outpatient (REF) | payer MEDICARE, OTHER, SELFPAY ==
[2025-04-11 11:44] LABS: INR 4.15; PT 40.5 Sec (11.4-14.6)
== END ==
LOC: REG 10:03
PROVIDERS: ATTENDING PHYSICIAN Internal Medicine Cardiovascular Disease; FAMILY PHYSICIAN Family Medicine
DX: D68.61 Antiphospholipid syndrome (principal); Z79.01 Long term (current) use of anticoagulants
CPT/HCPCS: 36415; 85610